=== PATIENT | male | born 1955 | race Caucasian/White ===

== ENCOUNTER → 2022-11-01 08:31 | Outpatient (BNVA) | payer SELFPAY | PROVIDERS: Visit Provider Internal Medicine | DX: Z13.89 Encounter for screening for other disorder (principal) ==

== ENCOUNTER 2022-12-17 07:12 | Outpatient (REF) | payer OTHER, SELFPAY ==
[2022-12-17 12:02] LABS: Hematocrit 43.7 % (42.0-52.0); Hemoglobin 14.2 g/dl (14.0-18.0); Mean Corpuscular HGB Conc 32.5 g/dl (31.0-36.0); Mean Corpuscular Hemoglobin 30.2 pg (27.0-33.0); Mean Platelet Volume 10.3 fL (9.4-12.4); Platelet Count 199 X10*3/uL (160-400); Red Cell Distribution Width 13.2 % (11.0-16.0); White Blood Count 3.6 X10*3/uL (4.8-10.8)
[2022-12-17 12:28] LABS: Alanine Aminotransferase 16 U/L (0-40); Albumin Level 4.2 g/dL (3.5-5.0); Alkaline Phosphatase 84 U/L (39-117); Anion Gap 15 (12-20); Aspartate Amino Transferase 24 U/L (5-37); Bilirubin Total 0.6 mg/dL (0.0-1.0); Blood Urea Nitrogen 22 mg/dL (9-16); Carbon Dioxide 26 mmol/L (22-29); Chloride 107 mmol/L (96-108); Cholesterol 192 mg/dL; Estimated Glomerular Filt Rate > 60; Glucose Fasting 79 mg/dL (60-99); HDL Cholesterol 52 mg/dL; LDL Cholesterol Calculated 125 mg/dl; Potassium 4.5 mmol/L (3.3-5.1); Sodium 143 mmol/L (135-145); Total Protein 6.3 g/dL (6.5-8.0); Triglycerides 79 mg/dL
[2022-12-21 17:37] LABS: PSA, Ultra Sensitive 0.04 ng/mL
== END 2022-12-17 07:13 | disposition home or self-care (01) ==
LOC: HO.WFDLDS 07:12
PROVIDERS: Visit Provider Nurse Practitioner Family
DX: Z00.00 Encounter for general adult medical examination without abnormal findings (principal); Z12.5 Encounter for screening for malignant neoplasm of prostate
CPT/HCPCS: 36415; 80053; 80061; 84153; 84443; 85027

== ENCOUNTER → 2023-04-10 08:24 | Outpatient (BNVA) | payer SELFPAY | PROVIDERS: PCP Nurse Practitioner Family; Visit Provider Physician Assistant | DX: Z02.79 Encounter for issue of other medical certificate (principal) ==

== ENCOUNTER 2023-07-02 09:53 | Outpatient (AMB) | payer OTHER, SELFPAY ==
[2023-07-02 10:02] VITALS: BP 118/72; PULSE 49; TEMP 36.7; O2SAT 97; BMI 21.4
--- NOTE | 2023-07-02 10:02 | MHC.PC.OV ---
Vital Signs 07/02/23 10:02 07/02/23 10:50 Height 5 ft 10 in Weight 149 lb BMI 21.4 BP 118/72 Blood Pressure Location Lt brachial Position Sitting Pulse 49 L 55 Pulse Source Pulse Oximeter Auscultation Temp 98.1 F Temp Source Oral Pulse Oximetry (%) 97 Oxygen Delivery Method Room Air Intake Visit Reasons: 4 months HTN Intake Note: Patient is here to follow up on hypertension. Allergies No Known Allergies Allergy (Verified 07/02/23 10:45) Tobacco use date assessed: 07/02/23 Fall risk assessment: No Falls in past year Last assessed Fall Risk: 07/02/23 Dental Screening Dental Screen Date: 07/02/23 Did you have a dental visit in the last 12 months?: Yes Did you have a dental problem in the last 6 months where you did not have access to dental care?: No Was dental information given to patient?: Patient has dentist HPI HPI Comments History of Present Illness Details 68-year-old male presents for hypertension follow-up He states he has been eating healthy No structured routine exercise No acute symptoms today He notes he occasionally checks his BP at home; his BP readings average in 120s/70s [facility] Medical History Rectal abscess Hypertension Surgical History H/O hernia repair Family History Father Aneurysm Social History Housing: House Patient Tobacco Use Status: Former Tobacco user Tobacco use type: Cigar Years Smoked: Pateint quit 2 weeks ago. e-Cigarette/Vaping Use: Never Used service: No Current occupational status: retired Cognitive needs: No Hearing needs: No Vision needs: No Questionnaire Thrive Questionnaire I am a: Patient What is your living situation today?: I have a steady place to live Within the past 12 months, did the food you bought not last and you didn't have the money to get more?: Never true Within the past 12 months, did you worry whether your food would run out before you got money to buy more?: Never true Do you have trouble paying for medicines?: No Do you have trouble getting transportation to medical appointments?: No Do you have trouble paying your heating and electricity bill?: No Do you have trouble taking care of your child, family member or friend?: No Do you have trouble with day-to-day activities such as bathing, preparing meals, shopping, managing finances, etc.?: No Are you currently unemployed and looking for a job?: No Are you interested in more education?: No Review of Systems Const Details: Const Denies chills, Denies fatigue, Denies fever(s), Denies headache(s) and Denies weakness ENT Denies dizziness and Denies headache(s) Card Denies chest pain, Denies lightheadedness, Denies dyspnea and Denies other (Palpitations) Resp Denies cough, Denies dyspnea, Denies wheezing and Denies other ( shortness of breath) GI Denies abdominal pain, Denies melena, Denies hematochezia, Denies change in bowel habits, Denies dyspepsia and Denies nausea Denies hematuria and Denies dysuria Musc Denies abnormal gait, Denies myalgias, Denies arthralgias, Denies numbness and Denies tingling Skin/Breast Denies rash, Denies unusual bruising and Denies wounds Neuro Denies abnormal gait, Denies dizziness, Denies headache(s), Denies memory loss, Denies numbness, Denies Sensory deficit (Neuro), Denies tingling and Denies weakness Psych Denies anxiety, Denies depression, Denies memory loss Endo Denies cold intolerance, Denies fatigue, Denies heat intolerance, Denies polydipsia and Denies polyuria Aller/Immun Denies wheezing Physical exam (Primary Care) Vital Signs: Last Vital Signs Temp 98.1 F 07/02/23 10:02 Pulse 55 07/02/23 10:50 BP 118/72 07/02/23 10:02 Pulse Ox 97 07/02/23 10:02 Oxygen Delivery Method Room Air 07/02/23 10:02 BMI result Body Mass Index 21.4 Tobacco/Smoking Status: Tobacco use Status Tobacco use date assessed 07/02/23 07/02/23 10:11 Patient Tobacco Use Status Former Tobacco user 07/02/23 10:11 Tobacco use type Cigar 07/02/23 10:11 e-Cigarette/Vaping Use Never Used 07/02/23 10:11 Const Other: General: no acute distress and well developed Nutritional Appearance: well nourished Orientation/consciousness: patient oriented x3 [facility] Head: Yes normocephalic and Yes atraumatic Eyes General: appearance normal, both eyes and all related structures Pupils: Equal, round and reactive pupils present EOM: EOMs intact bilaterally Resp Effort & Inspection: normal respiratory effort Auscultation: clear to auscultation bilaterally Cardio Rate: regular rate Rhythm: Irregular Heart sounds: S1 normal heart sound present, S2 normal heart sound present, no gallops, no murmurs and no rubs GI Palpation (GI): No Abdominal aortic bruit present, Soft to palpation, nontender, No hepatosplenomegaly present and No Rebound tenderness present Auscultation: normal bowel sounds General: Yes no CVA tenderness Back/Spine/Pelvis Back: no CVA tenderness Cervical Spine: cervical ROM normal and No Cervical spine tenderness Thoracic/Lumbar Spine: thoraco-lumbar ROM normal, No pain with thoraco-lumbar ROM, No thoracic spinal tenderness and No lumbar spinal tenderness Extrem General: Yes normal to inspection, No edema and No calf tenderness Skin General: warm and dry. Normal skin color. Normal skin turgor Lesions: no lesions Rashes: no rashes Trauma: no lacerations or abrasions Wounds: no wounds Nails: normal Neuro General: patient oriented x3, gait normal and no focal neuro deficit Cranial nerves: Yes Equal, round and reactive pupils present Cognition (Neuro): normal cognition Gait exam (Neuro): Normal gait present Sensory Exam: No Sensory deficit (Neuro) Psych Appearance: grossly normal Affect: normal affect Attitude: cooperative Thought process: Normal thought process present Assessment and Plan Assessment & Plan (1) Hypertension: Code(s): I10 - Essential (primary) hypertension Qualifiers: Hypertension type: primary hypertension Qualified Code(s): I10 - Essential (primary) hypertension Plan: His blood pressure is 118/72, within goal of less than 140/90. Heart rate is 55 Continue to monitor home blood pressure and report blood pressure readings consistently above 140/90 Low-sodium diet and routine exercise encouraged Follow-up in 5 months for hypertension and a complete physical exam. Return sooner with new or worsening symptoms Verbalized understanding and agreed with treatment plan. (2) Arrhythmia: Code(s): I49.9 - Cardiac arrhythmia, unspecified Plan: His heart rate is 55, heart rhythm is irregular. No history of chest pain or discomfort. No dizziness or lightheadedness. Patient notes that a year ago, he was informed by his former PCP that my heart skips a beat every 17 seconds. He denies history of EKG or formal diagnosis of arrhythmias or heart disease. EKG performed in office and revealed sinus bradycardia with frequent and consecutive premature ventricular complexes, nonspecific ST and T-wave abnormality. Heart rate is 59 T-wave inversion noted in leads V4, V5, and V6. Troponin ordered to rule out myocardial ischemia Echocardiogram ordered Referred to Cardiology for further workup Return with symptoms or concerns Verbalized understanding and agreed with treatment plan. (3) Abnormal EKG: Code(s): R94.31 - Abnormal electrocardiogram [ECG] [EKG] Plan: As above Orders: Orders AMB EKG-In Office Today I49.9 - Cardiac arrhythmia, unspecified CA echo transthoracic complete Today I49.9 - Cardiac arrhythmia, unspecified, R94.31 - Abnormal electrocardiogram [ECG] [EKG] Troponin-I High Sensitivity Today R94.31 - Abnormal electrocardiogram [ECG] [EKG] Referrals Cardiology Referral I49.9 - Cardiac arrhythmia, unspecified, R94.31 - Abnormal electrocardiogram [ECG] [EKG] Coding Level of Care Code Est Pt Level 4 (82546) Diagnoses Primary hypertension I10 Hypertension type: primary hypertension Arrhythmia I49.9 Abnormal EKG R94.31
[2023-07-02 10:50] VITALS: PULSE 55
== END 2023-07-02 11:18 | disposition home or self-care (01) ==
PROVIDERS: PCP Nurse Practitioner Family; Visit Provider Nurse Practitioner Family
DX: I10 Essential (primary) hypertension (principal); I49.9 Cardiac arrhythmia, unspecified; R94.31 Abnormal electrocardiogram [ECG] [EKG]
CPT/HCPCS: 99214

== ENCOUNTER 2023-07-02 11:19 | Outpatient (REF) | payer OTHER, SELFPAY ==
[2023-07-02 15:10] LABS: Troponin-I High Sensitivity 4.7 ng/L (<3.5-35.0)
== END 2023-07-02 11:20 | disposition home or self-care (01) ==
LOC: HO.WFDLDS 11:19
PROVIDERS: Visit Provider Nurse Practitioner Family
DX: R94.31 Abnormal electrocardiogram [ECG] [EKG] (principal)
CPT/HCPCS: 36415; 84484

== ENCOUNTER → 2023-07-31 12:47 | Outpatient (REF) | payer OTHER, SELFPAY ==
--- NOTE | 2023-07-31 12:52 | CA_ITS ---
Transthoracic Echocardiogram Patient (Last, First, Middle): Chong Jewell W Gender: Male Date of : 1955 Age: 68 Procedure Date: 07/31/2023 Procedure Type: Transthoracic Echocardiogram Location: OP Height: 175.26 cm Weight: 67.13 kg BSA: 1.82 m2 Heart Rate: 42 bpm BP: 130 / 80 mmHg Rn Correctional: ROSANNE Referring MD: Cecilia Mccauley CNP Symptoms: R94.31 - Abnormal electrocardiogram [ECG] [EKG] Study Quality: Adequate ECG Rhythm: Arrhythmia Conclusions: - The left ventricular systolic function is moderately decreased. The visually estimated ejection fraction is between 30-35%. - The basal inferior segment is akinetic. - There is mild to moderate mitral valve regurgitation. - There is mild dilatation of the sinuses of Valsalva measuring 4.30 cm and mild dilatation of the ascending aorta measuring 3.90 cm. Findings Left Ventricle Mildly increased left ventricular cavity size. There is mildly increased left ventricular wall thickness. The left ventricular systolic function is moderately decreased. The visually estimated ejection fraction is between 30 35%. There is moderate global hypokinesis. Evidence suggests grade I (mild) diastolic dysfunction. There is moderate septal and moderate basal asymmetric hypertrophy. Wall Motion Rest Echo Findings The basal inferior segment is akinetic. Right Ventricle Moderately increased right ventricular cavity size. Atria The left atrium is normal in size. The right atrium is mildly dilated. Aortic Valve There is a normal trileaflet aortic valve. There is mild calcification of the aortic valve. There is no aortic valve stenosis. There is no aortic valve regurgitation. Mitral Valve The mitral valve appears normal. There is mild to moderate mitral valve regurgitation. There is no mitral valve stenosis. Pulmonic Valve The pulmonic valve is likely normal. Tricuspid Valve There is trace tricuspid valve regurgitation. There is no evidence of pulmonary hypertension. Great Vessels There is mild dilatation of the sinuses of Valsalva measuring 4.30 cm and mild dilatation of the ascending aorta measuring 3.90 cm. Venous The inferior vena cava was not well visualized. Pericardium/Pleural There is no evidence of pericardial effusion. Prior Study Comparison No prior study available for comparison. Measurements 2D Linear Measurements IVSd: 1.46 0.6-0.9/0.6-1.0 cm LVIDd: 5.03 3.9-5.3/4.2-5.9 cm LVIDd Index: 2.76 2.4-3.2/2.2-3.1 cm/m2 LVIDs: 3.94 2.0-3.6 cm LVPWd: 1.24 0.7-1.1 cm LA Diam: 4.00 2.7-3.8/3.0-4.0 cm LAIDs Index: 2.20 1.5-2.3 cm/m2 LV Mass: 348.01 67-162/88-224 g LV Mass Index: 191.22 43-95/49-115 g/m2 LVOT Diam: 2.90 3.0+(-)1.3 cm 2D Systolic Function EF 4C: 37.10 >55% EF 2C: 33.90 >55% EF BiP: 37.90 >55% Mitral Valve MV Pk E: 0.54 MV PK A: 0.80 MV Decel Time: 224.00 E/A: 0.70 E'Lateral: 6.64 E'Medial: 4.13 E/E' Med: 13.20 E/E' Lat: 8.20 PHT: 65.00 MVA PHT: 3.38 Decel [place]: 2.43 MR Vol - PW Dopp: 9.32 MR VTI: 2.33 MR ERO: 4.00 MR Alias Kem: 0.39 MR RAD: 0.30 Aortic Valve AoV Pk Kem: 1.28 AoV Mn Kem: 0.95 AoV VTI: 0.31 AoV Pk Grad: 7.00 Aov Mn Grad: 4.[address] Cont.VTI: 3.53 LVOT LVOT Pk Kem: 0.72 LVOT Mn Kme: 0.52 LVOT VTI: 0.17 LVOT Pk Grad: 2.00 LVOT Mn Grad: 1.00 LVOT Diam: 2.90 LVOT Area: 6.61 Diastolic Function MV Pk E: 0.54 MV Pk A: 0.80 E/A: 0.70 E'Medial: 4.13 E/E' Med: 13.20 E' Laterial: 6.64 E/E' Lat: 8.20 Right Ventricle TAPSE (mm): 24.90 TVS' Kem: 13.40 Tricuspid Valve TR Pk Kem: 2.26 TR Pk Grad: 20.00 Great Vessels Aorta Sinus of Valsalva: 4.30 2.0-3.5 cm Ao Asc: 3.90 2.1-3.4 cm Pulmonary Valve PV Pk Kem: 0.90 Peak PV Grad: 3.00 Updated in Other Vendor System with Status of Final Christiano Crisostomo MD electronically signed on 08/02/2023 10:37:56 AM with status of Final
== END ==
LOC: HO.CARD 12:47
PROVIDERS: PCP Nurse Practitioner Family; Visit Provider Nurse Practitioner Family
DX: I49.9 Cardiac arrhythmia, unspecified (principal); R94.31 Abnormal electrocardiogram [ECG] [EKG]
CPT/HCPCS: 93306

== ENCOUNTER → 2023-07-31 12:52 | Outpatient (BNV) | payer OTHER, SELFPAY | PROVIDERS: PCP Nurse Practitioner Family; Visit Provider Internal Medicine | DX: I34.0 Nonrheumatic mitral (valve) insufficiency (principal); I35.8 Other nonrheumatic aortic valve disorders | CPT/HCPCS: 93306 ==

== ENCOUNTER 2023-10-01 13:51 | Outpatient (AMB) | payer OTHER, SELFPAY ==
--- NOTE | 2023-10-01 13:52 | A.OFFVIS_ITS ---
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 There is no history of any coronary disease, myocardial infarction or cardiomyopathy or in fact any other cardiac issues. He states that he is fairly active without any limitations. Does not get chest pains of anginal type or shortness of breath or in fact anything clearly symptomatic from cardiac. Listed to have hypertension but he is not on any medications. Otherwise, no major comorbidities. [facility] Medical History (Reviewed 07/02/23 @ 10:06 by Ayanna Chacon [facility]) Rectal abscess Hypertension Surgical History H/O hernia repair Family History Father Aneurysm Social History Housing: House Patient Tobacco Use Status: Former Tobacco user Tobacco use type: Cigar Years Smoked: Pateint quit 2 weeks ago. e-Cigarette/Vaping Use: Never Used service: No Current occupational status: retired Cognitive needs: No Hearing needs: No Vision needs: No Review of Systems Const Denies chills, Denies daytime sleepiness, Denies fatigue, Denies fever(s), Denies frequent falls, Denies night sweats, Denies snoring, Denies weakness, Denies weight gain and Denies weight loss Eyes Denies loss of vision ENT Denies dizziness and Denies hearing loss Card Denies chest pain, Denies chest pain with activity, Denies syncope, Denies rapid heart rate, Denies edema, Denies claudication, Denies leg edema, Denies lightheadedness, Denies palpitations, Denies dyspnea, Denies dyspnea on exertion and Denies orthopnea Resp Denies cough, Denies excessive phlegm production, Denies dyspnea, Denies dyspnea on exertion, Denies snoring and Denies wheezing GI Denies abdominal pain, Denies hematochezia, Denies change in bowel habits, Jose Miguel es change in stool character, Denies heartburn, Denies nausea and Denies vomiting Denies hematuria, Denies dysuria and Denies urinary frequency Musc Denies arthralgias, Denies muscle weakness, Denies numbness and Denies tingling Skin/Breast Denies nail changes and Denies rash Neuro Denies Abnormal speech present, Denies dizziness, Denies syncope, Denies frequent falls, Denies loss of vision, Denies memory loss, Denies numbness, Denies tingling and Denies weakness Psych Denies depression and Denies memory loss Endo Denies fatigue and Denies palpitations Aller/Immun Denies wheezing Physical Exam Vital Signs: Last Vital Signs Pulse 50 10/01/23 13:53 BP 142/60 H 10/01/23 13:53 BMI result Body Mass Index 23.1 Const General: comfortable and no acute distress Orientation/consciousness: patient oriented x3 HEENT Other: Unremarkable Head: Yes normal to inspection Neck Neck: Yes normal visual inspection Chest Chest palpation & inspection: normal inspection of the chest Resp Auscultation: clear to auscultation bilaterally Cardio Palpation: normal PMI Heart sounds: S1 normal heart sound present, S2 normal heart sound present, no gallops, Murmur heart sound present systolic II/ and at the apex and no rubs GI Palpation (GI): Soft to palpation Back/Spine/Pelvis Other: unremarkable Skin General skin exam: no rashes or lesions noted Neuro General: patient oriented x3 Speech: No Abnormal speech present Extrem General: Yes normal to inspection Psych Mental Status: mental status grossly normal Assessment & Plan Assessment & Plan (1) Cardiomyopathy: Code(s): I42.9 - Cardiomyopathy, unspecified (2) Abnormal EKG: Code(s): R94.31 - Abnormal electrocardiogram [ECG] [EKG] (3) PVC (premature ventricular contraction): Code(s): I49.3 - Ventricular premature depolarization Plan Recent EKG shows sinus rhythm at 59/Min; PVCs; PACs; can not exclude old inferior infarct; nonspecific T inversions in anterolateral leads. Echocardiogram with moderately decreased LVEF of 30-35%; basal inferior akinesis; [id number] mitral regurgitation and mild ascending aortic dilatation. Findings discussed with patient. Etiology for the cardiomyopathy/PVCs not clear. Unclear if he had a prior infarct or not. Patient himself does not have any cardiac history or symptoms. We will start with an exercise myocardial perfusion study as well as the Holter. January during diagnostic cardiac catheterization as well. Follow-up after testing. Coding Level of Care Code New Pt Level 4 (37223) Diagnoses Cardiomyopathy I42.9 Abnormal EKG R94.31 PVC (premature ventricular contraction) I49.3
[2023-10-01 13:53] VITALS: BP 142/60; PULSE 50; BMI 23.1
== END 2023-10-01 14:13 | disposition home or self-care (01) ==
PROVIDERS: PCP Nurse Practitioner Family; Visit Provider Internal Medicine
DX: I42.9 Cardiomyopathy, unspecified (principal); R94.31 Abnormal electrocardiogram [ECG] [EKG]; I49.3 Ventricular premature depolarization
CPT/HCPCS: 99214

== ENCOUNTER → 2023-10-01 13:51 | Outpatient (BNVA) | payer OTHER, SELFPAY | PROVIDERS: PCP Nurse Practitioner Family; Visit Provider Internal Medicine | DX: I42.9 Cardiomyopathy, unspecified (principal); I49.3 Ventricular premature depolarization; R94.31 Abnormal electrocardiogram [ECG] [EKG] | CPT/HCPCS: 99212 ==

== ENCOUNTER 2023-12-08 08:21 | Outpatient (AMB) | payer OTHER, SELFPAY ==
--- NOTE | 2023-12-04 14:38 | MHC.PC.OV ---
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 timolol maleate 0.5% 1 drp ophthalmic (eye) BID Tobacco use date assessed: 12/08/23 Fall risk assessment: No Falls in past year Last assessed Fall Risk: 12/08/23 Dental Screening Dental Screen Date: 12/08/23 Did you have a dental visit in the last 12 months?: Yes Did you have a dental problem in the last 6 months where you did not have access to dental care?: No Was dental information given to patient?: Patient has dentist HPI HPI Comments History of Present Illness Details 68 y/o male presents for a complete physical exam He has h/o HTN, dextroscoliosis, chronic low back pain, PVC, and cardiography; surgical h/o repaired detached retina OD, cataract surgery OD, and prostate cancer in 2016 with successful radiation in 2017 He is on ketorolac and timolol eyedrops He reports intermittent low back pain which has been ongoing for the past 4 years, worse with prolonged walking and certain movements; was followed by Orthopedics No acute symptoms He notes that had surgical repair of detached retina of the right eye in 08/2022. 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 His last colonoscopy was about 5 years ago at [facility]: benign polyps removed He has not been vaccinated for pneumonia, shingles, or current flu vaccines He does not recall his last eye exam He is followed by [facility] cardiology He is also followed by urology at [facility] Medical History Rectal abscess Hypertension Surgical History H/O hernia repair Family History Father Aneurysm Social History Housing: House Patient Tobacco Use Status: Former Tobacco user Tobacco use type: Cigar Years Smoked: Pateint quit 2 weeks ago. e-Cigarette/Vaping Use: Never Used service: No Current occupational status: retired Cognitive needs: No Hearing needs: No Vision needs: No Questionnaire PHQ-9 Over the last 2 weeks, how often have you been bothered by any of the following problems? 1. Little interest or pleasure in doing things: not at all 2. Feeling down, depressed, or hopeless: not at all 3. Trouble falling or staying asleep, or sleeping too much: not at all 4. Feeling tired or having little energy: not at all 5. Poor appetite or overeating: not at all 6. Feeling bad about yourself - or that you are a failure or have let yourself or your family down: not at all 7. Trouble concentrating on things, such as reading the newspaper or watching television: not at all 8. Moving or speaking so slowly that other people could have noticed. Or the opposite - being so fidgety or restless that you have been moving around a lot more than usual: not at all 9. Thoughts that you would be better off or of hurting yourself in some way: not at all Total score: 0 Depression Screening Interpretation: Negative Depression Screening Done: Yes Source: Developed by Drs. Cristino Morris, Nory Molina, Luca Wills and colleagues, with an educational regina from [employer]. Thrive Questionnaire Date Thrive assessed: 12/08/23 I am a: Patient What is your living situation today?: I have a steady place to live Within the past 12 months, did the food you bought not last and you didn't have the money to get more?: Never true Within the past 12 months, did you worry whether your food would run out before you got money to buy more?: Never true Do you have trouble paying for medicines?: No Do you have trouble getting transportation to medical appointments?: No Do you have trouble paying your heating and electricity bill?: No Do you have trouble taking care of your child, family member or friend?: No Do you have trouble with day-to-day activities such as bathing, preparing meals, shopping, managing finances, etc.?: No Are you currently unemployed and looking for a job?: No Are you interested in more education?: No Please select the resources that you would like help with: None Currently or been in a relationship where the following occur: no concerns reported THRIVE Score: 0 AUDIT C Alcohol Use Questionnaire (AUDIT-C) 1. How often do you have a drink containing alcohol?: Never 3. How often do you have six or more drinks on one occasion?: Never Total Score: 0 AMALIA-7 AMB Questionnaire AMALIA-7 Date AMALIA - 7 assessed: 12/08/23 Feeling nervous, anxious, or on edge: 0 = Not at all Not being able to stop or control worryin = Not at all Worrying too much about different things: 0 = Not at all Trouble relaxin = Not at all Being so restless that it is hard to sit still: 0 = Not at all Becoming easily annoyed or irritable: 0 = Not at all Feeling afraid as if something awful might happen: 0 = Not at all Total AMALIA-7 score (0-4 normal; 5-9 mild; 10-14 moderate; 15-21 severe): 0 Source: Developed by Drs. Cristino Morris, Nory Molina, Luca Wills and colleagues, with an educational regina from [employer]. AMALIA-7 Assessment Billing AMALIA-7 Assessment Tool: AMALIA-7 Assessment 33265 Review of Systems Const Details: Denies chills, Denies fatigue, Denies fever(s), Denies headache(s) and Denies weakness HEENT Denies change in vision, Denies dizziness, Denies headache(s), Denies hearing loss, Denies nasal congestion, Denies sinus pain, Denies sinus pressure and Denies sore throat Card Denies chest pain, Denies lightheadedness, Denies dyspnea and Denies other (palpitations) Resp Denies cough, Denies dyspnea and Denies wheezing GI Denies abdominal pain, Denies melena, Denies hematochezia, Denies change in bowel habits, Denies dyspepsia and Denies nausea Denies hematuria and Denies dysuria Musc Denies abnormal gait, Denies myalgias, Denies arthralgias, Denies numbness and Denies tingling Skin/Breast Denies rash, Denies unusual bruising and Denies wounds Neuro Denies abnormal gait, Denies dizziness, Denies headache(s), Denies memory loss, Denies numbness, Denies Sensory deficit (Neuro), Denies tingling and Denies weakness Psych Denies anxiety, Denies depression and Denies memory loss Endo Denies cold intolerance, Denies fatigue, Denies heat intolerance, Denies polydipsia and Denies polyuria Jesús/Lymph Denies easy bleeding and Denies easy bruising Aller/Immun Denies wheezing Physical exam (Primary Care) Vital Signs: Last Vital Signs Temp 97.3 F 12/08/23 08:24 Pulse 58 12/08/23 08:24 Resp 14 12/08/23 08:24 BP 130/80 12/08/23 08:53 Pulse Ox 99 12/08/23 08:24 Oxygen Delivery Method Room Air 12/08/23 08:24 BMI result Body Mass Index 23.3 Tobacco/Smoking Status: Tobacco use Status Tobacco use date assessed 12/08/23 12/08/23 08:33 Patient Tobacco Use Status Former Tobacco user 12/04/23 14:38 Tobacco use type Cigar 12/04/23 14:38 e-Cigarette/Vaping Use Never Used 12/04/23 14:38 PHQ-9: PHQ-9 Score PHQ-9: Total score 0 12/08/23 08:44 Depression Screening Interpretation: Negative Thrive Assessment: Date of Thrive Assessment Date Thrive assessed 12/08/23 12/08/23 08:33 Currently or been in a relationship where the following occur: no concerns reported Const Other: General: no acute distress, well developed, alert and awake Nutritional Appearance: well nourished Orientation/consciousness: patient oriented x3 HENMT Head: Yes normocephalic and Yes atraumatic Ears: hearing grossly normal bilaterally and TM's normal bilaterally General nose exam: Normal external nose present and Normal nares present Mouth: Normal oral and palatal mucosa present and moist mucous membranes Teeth and gingiva: dentition normal Throat: Yes oropharynx normal Eyes Pupils: Equal, round and reactive pupils present and Pupil accommodation reflex normal EOM: EOMs intact bilaterally Neck Neck: Yes normal visual inspection, Yes no lymphadenopathy and Yes trachea midline Thyroid: Thyroid normal Carotids: no bruits Lymphatic: no lymphadenopathy noted Chest Chest palpation & inspection: normal inspection of the chest Resp Effort & Inspection: normal respiratory effort Auscultation: clear to auscultation bilaterally Cardio Rate: regular rate Rhythm: regular rhythm Heart sounds: S1 normal heart sound present, S2 normal heart sound present, no gallops, no murmurs and no rubs Bruits: no abdominal aortic bruits and no carotid bruits GI Palpation (GI): No Abdominal aortic bruit present, Soft to palpation, nontender, No hepatosplenomegaly present and No Rebound tenderness present Auscultation: normal bowel sounds General: Yes no CVA tenderness Back/Spine/Pelvis Back: no CVA tenderness Cervical Spine: cervical ROM normal and No Cervical spine tenderness Thoracic/Lumbar Spine: thoraco-lumbar ROM normal, No pain with thoraco-lumbar ROM, No thoracic spinal tenderness and No lumbar spinal tenderness Skin General: warm and dry. Normal skin color. Normal skin turgor Lesions: no lesions Rashes: no rashes Trauma: no lacerations or abrasions Wounds: no wounds Nails: normal Neuro General: patient oriented x3, gait normal and CN's II-XI intact bilaterally Cranial nerves: Yes Equal, round and reactive pupils present Cognition (Neuro): normal cognition Gait exam (Neuro): Normal gait present Motor exam (neuro): 5/5 motor strength present throughout Sensory Exam: No Sensory deficit (Neuro) Deep tendon reflexes (DTR's): Right patellar reflex intensity grade: 2+ and Left patellar reflex intensity grade: 2+ Extrem General: Yes normal to inspection, No edema and No calf tenderness Psych Appearance: grossly normal Affect: normal affect Attitude: cooperative Thought process: Normal thought process present Assessment and Plan Assessment & Plan (1) Physical exam, annual: Code(s): Z00.00 - Encounter for general adult medical examination without abnormal findings Plan: Normal physical exam of a 68-year-old male, no significant physical restrictions or limitations noted Continue current treatment regimen Healthy diet and routine exercise encouraged Follow-up in 2 months for hypertension and labs review Return sooner with symptoms or concerns Verbalized understanding and agreed with the treatment plan (2) Hypertension: Code(s): I10 - Essential (primary) hypertension Qualifiers: Hypertension type: primary hypertension Qualified Code(s): I10 - Essential (primary) hypertension Plan: Resting blood pressure is 130/80, controlled No currently on antihypertensive Low-sodium diet encouraged Follow-up in 2 months or return sooner with symptoms or concerns Verbalized understanding and agreed with treatment plan (3) Chronic low back pain: Code(s): M54.50 - Low back pain, unspecified; G89.29 - Other chronic pain Plan: Intermittent chronic low back pain, worse with prolonged ambulation and certain movements No acute symptoms at this time Likely arthritis Will start Naproxen 500 mg twice daily as needed. Take as prescribed Warm/cold compresses encouraged Follow-up with worsening or new symptoms Verbalized understanding and agreed with treatment plan (4) Cardiomyopathy: Code(s): I42.9 - Cardiomyopathy, unspecified Plan: Followed by [facility] cardiology (5) Colon cancer screening: Code(s): Z12.11 - Encounter for screening for malignant neoplasm of colon Plan: Last colonoscopy was about 5 years ago at [facility]: benign polyps removed Referred to [facility] gastroenterology for a colonoscopy (6) Vaccine counseling: Code(s): Z71.85 - Encounter for immunization safety counseling Plan: He has not been vaccinated for pneumonia, shingles, or current flu vaccines Instructed on the importance of vaccination encouraged to request the vaccinations from the local pharmacy Verbalized understanding and agreed with the plan (7) Eye exam, routine: Code(s): Z01.00 - Encounter for examination of eyes and vision without abnormal findings Plan: He does not recall his last eye exam Referred to [facility] Ophthalmology (8) Laboratory tests ordered as part of a complete physical exam (CPE): Code(s): Z00.00 - Encounter for general adult medical examination without abnormal findings Plan: Fasting labs ordered as part of a complete physical exam. Advised to fast for at least 10 hours before getting labs drawn. May drink water Verbalized understanding and agreed with treatment plan. Orders: Orders Complete Blood Count Auto Diff Today Z00.00 - Encounter for general adult medical examination without abnormal findings Lipid Panel Today Z00.00 - Encounter for general adult medical examination without abnormal findings PSA, Ultra Sensitive Today Z00.00 - Encounter for general adult medical examination without abnormal findings Comprehensive [place]. Panel Fast Today Z00.00 - Encounter for general adult medical examination without abnormal findings TSH reflex Free T4 Today Z00.00 - Encounter for general adult medical examination without abnormal findings UA CC w/rflx Micro + Cult Today Z00.00 - Encounter for general adult medical examination without abnormal findings Referrals Ophthalmology Referral Z01.00 - Encounter for examination of eyes and vision without abnormal findings Medications: New naproxen 500 mg PO BID PRN 60 tabs 1RF pain Coding Level of Care Code Est Pt Prev Care >65y(32075) Diagnoses Physical exam, annual Z00.00 Primary hypertension I10 Hypertension type: primary hypertension Chronic low back pain M54.50; G89.29 Cardiomyopathy I42.9 Colon cancer screening Z12.11 Vaccine counseling Z71.85 Eye exam, routine Z01.00 Laboratory tests ordered as part of a complete physical exam (CPE) Z00.00 Additional Codes AMALIA-7 Assessment Billing - AMALIA-7 Assessment Tool: AMALIA-7 Assessment 24514 ([id number])
[2023-12-08 08:24] VITALS: BP 148/76; PULSE 58; RESP 14; TEMP 36.3; O2SAT 99; BMI 23.3
[2023-12-08 08:53] VITALS: BP 130/80
== END 2023-12-08 09:11 | disposition home or self-care (01) ==
PROVIDERS: PCP Nurse Practitioner Family; Visit Provider Nurse Practitioner Family
DX: Z00.00 Encounter for general adult medical examination without abnormal findings (principal); I10 Essential (primary) hypertension; M54.50 Low back pain, unspecified; G89.29 Other chronic pain; I42.9 Cardiomyopathy, unspecified; Z12.11 Encounter for screening for malignant neoplasm of colon; Z71.85 Encounter for immunization safety counseling; Z01.00 Encounter for examination of eyes and vision without abnormal findings
CPT/HCPCS: 99397

== ENCOUNTER → 2023-12-17 08:14 | Outpatient (REF) | payer OTHER, SELFPAY ==
--- NOTE | ~2023-12-17 | NM_ITS ---
EXERCISE MYOCARDIAL PERFUSION STUDY INDICATION: PVC, cardiomyopathy TECHNIQUE: The patient was brought in for an exercise perfusion study on 12/17/2023. Patient performed exercise as per Agustin protocol and was injected 25 mCi of sestamibi once target heart rate was achieved. Images were obtained using the SPECT gamma camera interlaced with the gating device. Images were obtained in supine position. Resting perfusion study was performed on 12/18/2023. Patient was administered 25 mCi of sestamibi intravenously at rest. Images were then obtained in supine position. Images were processed with the software and compared side to side in short axis, horizontal long axis and vertical long axis views. Total DLP 80mGy-cm. FINDINGS: Raw images were reviewed. The stress perfusion study showed tracer uptake in the basal part of lateral wall. Possibly some improvement with CT attenuation correction. The gated study shows mildly diminished LV systolic function with calculated LVEF of 49%. LV cavity is normal in size. The gated study shows normal wall thickening and contraction of segments. Resting study shows diminished tracer uptake along the basal part of lateral wall. No major change with CT attenuation correction. Gating at rest reveals normal wall motion with ejection fraction at 47%. The findings are consistent with basal lateral defect. No clear reversible defects NM/NM cardiolite stress test IMPRESSION: 1. Myocardial perfusion imaging study shows possible infarct in the basal inferolateral wall. No clear ischemia. 2. Gated LVEF is 49% during stress and 47% during rest.. 3. Transient ischemic dilatation not present. EKG component of the test reported separately.
--- NOTE | 2023-12-17 08:18 | CA_ITS ---
Acquisition Time: 2023-12-17 08:29:58 Total Exercise Time: 00:06:07 Test Indications: ABN EKG, ABN ECHO Medications: SEE H Protocol: NAYELI Max HR: 148 BPM 96% of Pred: 153 BPM Max BP: 170/078 mmHG Max Work Load: 7.1 METS Exercise stress test exercise 6 min 76 sec of Nayeli protocol achieving 94% MPHR, without anginal symptoms, with isolated PVCs during exercise and isolated PVCsventicular cupets at rest, with normotensive response to exercise, without EKG changes. Nuclear images pending. Test reviewed with Dr. Rankin Referred By: Christiano Crisostomo Overread By: Nena Prescott
--- NOTE | 2023-12-17 08:18 | HM_ITS ---
Conclusion: 1. Patient was monitored for total period of 2 days 2. Baseline was normal sinus rhythm with average heart of 67 beats per minute 3. Frequent sinus bradycardia noted with 40% of the time heart rate below 60 beats per minute with no significant pauses 4. Occasional PACs noted with no significant SVT runs 5. Frequent PVCs noted with total burden of 10.4% with frequent nonsustained VT noted with longest episode of 5 beats at 170 beats per minute 6. No patient reported events MTDD
== END ==
LOC: HO.CARD 08:14
PROVIDERS: PCP Nurse Practitioner Family; Visit Provider Internal Medicine
DX: R00.2 Palpitations (principal); I49.3 Ventricular premature depolarization; I42.9 Cardiomyopathy, unspecified
CPT/HCPCS: 78452; 93017; 93242; A9500

== ENCOUNTER → 2023-12-17 08:18 | Outpatient (BNV) | payer OTHER, SELFPAY | PROVIDERS: PCP Nurse Practitioner Family; Visit Provider Nurse Practitioner | DX: R00.1 Bradycardia, unspecified (principal) | CPT/HCPCS: 78452; 93016; 93018; 93244 ==

== ENCOUNTER 2023-12-25 08:33 | Outpatient (AMB) | payer OTHER, SELFPAY ==
[2023-12-25 08:40] VITALS: BP 122/70; PULSE 52; BMI 23.1
--- NOTE | 2023-12-25 08:40 | A.OFFVIS_ITS ---
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 naproxen 500 mg PO BID PRN timolol maleate 0.5% 1 drp ophthalmic (eye) BID HPI r/s followup after mibi HPI Details Chong is a 68-year-old male with past medical history of hypertension, newer finding of cardiomyopathy, PVCs who recently underwent a nuclear stress test and Holter monitor and now presents for follow-up. Today he states that he feels well overall with no concerning symptoms. He denies having heart palpitations, chest discomfort at rest or with activity, no shortness of breath, presyncope, syncope, falls. No PND, orthopnea or edema. He does only light physical activities. Takes meds as directed. [facility] Medical History Prostate cancer Rectal abscess Hypertension Surgical History Hx of cataract surgery H/O hernia repair Family History Father Aneurysm Social History Housing: House Patient Tobacco Use Status: Former Tobacco user Tobacco use type: Cigar Years Smoked: Pateint quit 2 weeks ago. e-Cigarette/Vaping Use: Never Used service: No Current occupational status: retired Cognitive needs: No Hearing needs: No Vision needs: No Review of Systems Const All systems reviewed & are unremarkable except as noted in HPI and below ENT Denies dizziness Card Denies chest pain, Denies chest pain at rest, Denies chest pain with activity, Denies rapid heart rate, Denies pedal edema, Denies edema, Denies leg edema, Denies lightheadedness, Denies palpitations, Denies dyspnea, Denies dyspnea on exertion and Denies orthopnea Resp Denies cough, Denies dyspnea and Denies dyspnea on exertion GI Denies hematochezia and Denies change in stool character Musc Denies abnormal gait, Denies limited range of motion, Denies muscle cramps, Denies muscle weakness, Denies numbness, Denies radiating pain into limb, Denies stiffness and Denies tingling Neuro Denies abnormal gait, Denies dizziness, Denies numbness and Denies tingling Endo Denies palpitations Physical Exam Vital Signs: Last Vital Signs Pulse 52 12/25/23 08:40 BP 122/70 12/25/23 08:40 BMI result Body Mass Index 23.1 Const General: cooperative, healthy appearing, comfortable and no acute distress Orientation/consciousness: patient oriented x3 Neck Neck: Yes normal visual inspection and Yes no JVD Resp Effort & Inspection: normal respiratory effort Auscultation: clear to auscultation bilaterally, no crackles, no rales, no rhonchi and no wheezes Cardio Jugular venous distension: no JVD Rate: regular rate Rhythm: regular rhythm Heart sounds: S1 normal heart sound present, S2 normal heart sound present, no murmurs and no rubs Neuro General: patient oriented x3 Extrem General: Yes normal to inspection, No no pedal edema and No calf tenderness Psych Appearance: grossly normal Mental Status: mental status grossly normal Speech and movement: Normal speech and movement present Assessment & Plan Assessment & Plan (1) Cardiomyopathy: Code(s): I42.9 - Cardiomyopathy, unspecified Plan: An EKG was done 07/04/2023 showing sinus bradycardia with frequent PVCs. This led to echocardiogram done on 07/31/2023 showing EF 30-35%, basal inferior akinetic, [id number] MR, ascending aorta 3.9, sinus of Valsalva 4.3. He was seen in Cardiology consultation and a nuclear stress test was ordered and done on 12/17/2023 with exercise 6 minutes achieving 94% MPHR, no anginal symptoms, PVCs and couplets, no EKG changes of ischemia and nuclear scan showing possible infarct of the basal inferior lateral wall. A Holter monitor was done on 12/16 for 2 days showing sinus rhythm with average heart rate 67, sinus bradycardia 40% of the time with heart rate less than 60, PVCs 10.4% of time with frequent NSVT, longest 5 beats. He has not on any cardiac medications at this time. He did have good chronotropic competence at his stress test. Pulse rate today in the 50s. Reviewed with . Will start on low-dose metoprolol XL. Recommended he stopped timolol eyedrops. He tells me he has an appointment with his eye doctor next week and they may be discontinued any ways. Will order a cardiac catheterization for evaluation of his coronary arteries, question PCI if warranted. Preprocedure labs ordered. Procedure risks including bleeding, infection, JACQUELIN, [place], stroke reviewed with him and he is agreeable to proceed. Will have him back here in 1 week for vital sign check. May increase metoprolol dose and or add Jeramie/Arb at that time. He has no signs of fluid overload on exam. No need for diuretic at this time. His cardiomyopathy could be ischemic also may be related to frequent PVCs. Avoidance of stimulants reviewed, he can continue activity as tolerated. Cardiology follow-up 2 weeks post cath. (2) Abnormal nuclear stress test: Code(s): R94.39 - Abnormal result of other cardiovascular function study Plan: As above (3) Hypertension: Code(s): I10 - Essential (primary) hypertension Qualifiers: Hypertension type: primary hypertension Qualified Code(s): I10 - Essential (primary) hypertension Plan: Well controlled at this time. Adding low-dose metoprolol. Recheck in the office in 1 week. (4) PVC (premature ventricular contraction): Code(s): I49.3 - Ventricular premature depolarization Plan: Frequent PVCs as above. Plan Time spent on chart review, documentation, interview and assessment Orders: Orders Basic Metabolic Panel Today I42.9 - Cardiomyopathy, unspecified, I49.3 - Ventricular premature depolarization, R94.39 - Abnormal result of other cardiovascular function study Cardiac Cath LT w PCI Today I42.9 - Cardiomyopathy, unspecified, I49.3 - Ventricular premature depolarization, R94.39 - Abnormal result of other cardiovascular function study Complete Blood Count Auto Diff Today I42.9 - Cardiomyopathy, unspecified, R94.39 - Abnormal result of other cardiovascular function study Prothrombin Time INR Today I42.9 - Cardiomyopathy, unspecified, R94.39 - Abnormal result of other cardiovascular function study Medications: New metoprolol succinate ER 12.5 mg (09/16 x 25 mg) PO DAILY 15 tabs 3RF 30 days Coding Level of Care Code Est Pt Level 4 (63553) Diagnoses Cardiomyopathy I42.9 Abnormal nuclear stress test R94.39 Primary hypertension I10 Hypertension type: primary hypertension PVC (premature ventricular contraction) I49.3 Time Spent (min) 30
== END 2023-12-25 09:17 | disposition home or self-care (01) ==
PROVIDERS: PCP Nurse Practitioner Family; Visit Provider Nurse Practitioner Family
DX: I42.9 Cardiomyopathy, unspecified (principal); R94.39 Abnormal result of other cardiovascular function study; I10 Essential (primary) hypertension; I49.3 Ventricular premature depolarization
CPT/HCPCS: 99214

== ENCOUNTER → 2023-12-25 08:33 | Outpatient (BNVA) | payer OTHER, SELFPAY | PROVIDERS: PCP Nurse Practitioner Family; Visit Provider Nurse Practitioner Family | DX: I42.9 Cardiomyopathy, unspecified (principal); I10 Essential (primary) hypertension; R94.39 Abnormal result of other cardiovascular function study; I49.3 Ventricular premature depolarization | CPT/HCPCS: 99212 ==

== ENCOUNTER → 2024-01-01 09:19 | Outpatient (BNVA) | payer OTHER, SELFPAY | PROVIDERS: PCP Nurse Practitioner Family; Visit Provider Nurse Practitioner Family ==

== ENCOUNTER 2024-01-19 07:02 | Outpatient (REF) | payer OTHER, SELFPAY ==
[2024-01-19 11:21] LABS: MANUAL DIFF FLAG NO
[2024-01-19 11:27] LABS: Appearance Urine Turbid; Color Urine Yellow; Glucose Urine UA Negative (Negative); Leukocyte Esterase Urine Negative (Negative); Nitrite Urine Negative (Negative); Specific Gravity - Urine 1.025 (1.005-1.025); Urine Blood Negative (Negative); Urine Ketones Negative (Negative); Urine Protein Negative (Neg-Trace)
[2024-01-19 11:33] LABS: Basophils Percent Auto 0.3 % (0-2); Eosinophils Absolute Auto 0.2 X10*3/uL (0.0-0.4); Eosinophils Percent Auto 6.7 % (0-4); Hemoglobin 14.1 g/dl (14.0-18.0); Lymphocytes Percent Auto 30.4 % (20-40); Mean Corpuscular HGB Conc 32.8 g/dl (31.0-36.0); Mean Corpuscular Hemoglobin 29.9 pg (27.0-33.0); Mean Corpuscular Volume 91.1 fL (80.0-98.0); Mean Platelet Volume 10.2 fL (9.4-12.4); Monocytes Absolute Auto 0.5 X10*3/uL (0.1-1.2); Neutrophils Absolute Auto 1.7 x10*3/uL (2.0-8.3); Neutrophils Percent Auto 48.6 % (45-73); Platelet Count 193 X10*3/uL (160-400); Red Blood Count 4.72 X10*6/uL (4.60-5.80); Red Cell Distribution Width 14.2 % (11.0-16.0); White Blood Count 3.4 X10*3/uL (4.8-10.8)
[2024-01-19 11:42] LABS: INTERNATIONAL NORM RATIO 0.9 (0.9-1.1); Prothrombin Time 11.2 SEC (11.1-13.3)
[2024-01-19 11:50] LABS: Alanine Aminotransferase 17 U/L (0-40); Albumin Level 4.2 g/dL (3.5-5.0); Alkaline Phosphatase 74 U/L (39-117); Anion Gap 13 (12-20); Aspartate Amino Transferase 24 U/L (5-37); Bilirubin Total 0.4 mg/dL (0.0-1.0); Blood Urea Nitrogen 24 mg/dL (9-16); Calcium 9.6 mg/dL (8.4-10.2); Carbon Dioxide 25 mmol/L (22-29); Chloride 110 mmol/L (96-108); Cholesterol 200 mg/dL (<200); Estimated Glomerular Filt Rate > 60; Glucose Fasting 78 mg/dL (60-99); Glucose Random 78 mg/dL (60-115); HDL Cholesterol 54 mg/dL (>40); LDL Cholesterol Calculated 132 mg/dL (<100); Potassium 4.5 mmol/L (3.3-5.1); Sodium 143 mmol/L (135-145); Triglycerides 70 mg/dL (<150)
[2024-01-19 12:10] LABS: TSH reflex Free T4 0.88 uIU/mL (0.32-4.0)
[2024-01-22 20:09] LABS: PSA, Ultra Sensitive 0.02 ng/mL
== END 2024-01-19 07:03 | disposition home or self-care (01) ==
LOC: HO.WFDLDS 07:02
PROVIDERS: Referring Provider Nurse Practitioner Family; Visit Provider Nurse Practitioner Family
DX: Z00.00 Encounter for general adult medical examination without abnormal findings (principal); Z12.5 Encounter for screening for malignant neoplasm of prostate; Z13.6 Encounter for screening for cardiovascular disorders; I42.9 Cardiomyopathy, unspecified; R94.39 Abnormal result of other cardiovascular function study; I49.3 Ventricular premature depolarization
CPT/HCPCS: 36415; 80048; 80053; 80061; 81003; 84153; 84443; 85025; 85610

== ENCOUNTER → 2024-01-27 23:59 | Outpatient (BNV) | payer OTHER, SELFPAY | PROVIDERS: PCP Nurse Practitioner Family; Visit Provider Internal Medicine Cardiovascular Disease | DX: I42.9 Cardiomyopathy, unspecified (principal); I50.20 Unspecified systolic (congestive) heart failure; R93.1 Abnormal findings on diagnostic imaging of heart and coronary circulation | CPT/HCPCS: 93456; 99152 ==

== ENCOUNTER 2024-01-30 07:52 | Outpatient (AMB) | payer OTHER, SELFPAY ==
--- NOTE | 2024-01-30 07:54 | A.OFFPC_ITS ---
Vital Signs 01/30/24 07:55 Height 5 ft 9 in Weight 156 lb 2 oz BMI 23.1 BP 124/68 Blood Pressure Location Rt brachial Position Sitting Respiration 14 Pulse 69 Pulse Source Pulse Oximeter Temp 97 F Temp Source Temporal Artery Scan Pulse Oximetry (%) 99 Oxygen Delivery Method Room Air Intake Visit Reasons: Hypertension,lab review Vc++ Developer Required: No Accompanied by: Self / Same As Patient Allergies No Known Allergies Allergy (Verified 01/30/24 07:59) Tobacco use date assessed: 12/08/23 Fall risk assessment: No Falls in past year Last assessed Fall Risk: 01/30/24 Dental Screening Dental Screen Date: 12/08/23 HPI HPI Comments History of Present Illness Details 68-year-old male presents for hypertensi on and review of recent lab work follow-up. He had cardiac catheterization procedure at [facility] on 01/26/2023. Coronary anatomy: Right dominant circulation. Mid RCA has 40% stenosis. No significant disease in LAD or circumflex artery. He was prescribed metoprolol 12.5 mg daily, which he admits to taking as prescribed without adverse reactions. He admits to eating healthy and avoiding salt. He sleeps well. He offers no complaints and denies acute symptoms at this time. [facility] Medical History Prostate cancer Rectal abscess Hypertension Surgical History Hx of cataract surgery H/O hernia repair Family History Father Aneurysm Social History Household Members: Spouse Both parents involved: No Caregiver staying overnight: No Housing: House Are you a primary managed care manager to a significant other at home: No Do you presently have visiting nurse or other home services: No 75 years or older and lives alone: No Alcohol intake: never Patient Tobacco Use Status: Former Tobacco user Tobacco use type: Cigar Years Smoked: Pateint quit 2 weeks ago. e-Cigarette/Vaping Use: Never Used service: No Current occupational status: retired Cognitive needs: No Hearing needs: No Vision needs: No Questionnaire Thrive Questionnaire Date Thrive assessed: 12/08/23 AMALIA-7 AMB Questionnaire AMALIA-7 Date AMALIA - 7 assessed: 12/08/23 Source: Developed by Drs. Cristino Morris, Nory Molina, Luca Wills and colleagues, with an educational regina from [employer]. Review of Systems Const Details: Const Denies chills, Denies fatigue, Denies fever(s), Denies headache(s) and Denies weakness ENT Denies dizziness and Denies headache(s) Card Denies chest pain, Denies lightheadedness, Denies dyspnea and Denies other (Palpitations) Resp Denies cough, Denies dyspnea, Denies wheezing and Denies other ( shortness of breath) GI Denies abdominal pain, Denies melena, Denies hematochezia, Denies change in bowel habits, Denies dyspepsia and Denies nausea Denies hematuria and Denies dysuria Musc Denies abnormal gait, Denies myalgias, Denies arthralgias, Denies numbness and Denies tingling Skin/Breast Denies rash, Denies unusual bruising and Denies wounds Neuro Denies abnormal gait, Denies dizziness, Denies headache(s), Denies memory loss, Denies numbness, Denies Sensory deficit (Neuro), Denies tingling and Denies weakness Psych Denies anxiety, Denies depression, Denies memory loss Endo Denies cold intolerance, Denies fatigue, Denies heat intolerance, Denies polydipsia and Denies polyuria Aller/Immun Denies wheezing Physical exam (Primary Care) Vital Signs: Last Vital Signs Temp 97 F 01/30/24 07:55 Pulse 69 01/30/24 07:55 Resp 14 01/30/24 07:55 BP 124/68 01/30/24 07:55 Pulse Ox 99 01/30/24 07:55 Oxygen Delivery Method Room Air 01/30/24 07:55 BMI result Body Mass Index 23.1 Tobacco/Smoking Status: Tobacco use Status Tobacco use date assessed 12/08/23 01/30/24 08:03 Patient Tobacco Use Status Former Tobacco user 01/30/24 08:03 Tobacco use type Cigar 01/30/24 08:03 e-Cigarette/Vaping Use Never Used 01/30/24 08:03 Thrive Assessment: Date of Thrive Assessment Date Thrive assessed 12/08/23 01/30/24 08:03 Const Other: General: no acute distress and well developed Nutritional Appearance: well nourished Orientation/consciousness: patient oriented x3 [facility] Head: Yes normocephalic and Yes atraumatic Eyes General: appearance normal, both eyes and all related structures Pupils: Equal, round and reactive pupils present EOM: EOMs intact bilaterally Resp Effort & Inspection: normal respiratory effort Auscultation: clear to auscultation bilaterally Cardio Rate: regular rate Rhythm: regular rhythm Heart sounds: S1 normal heart sound present, S2 normal heart sound present, no gallops, no murmurs and no rubs GI Palpation (GI): No Abdominal aortic bruit present, Soft to palpation, nontender, No hepatosplenomegaly present and No Rebound tenderness present Auscultation: normal bowel sounds General: Yes no CVA tenderness Back/Spine/Pelvis Back: no CVA tenderness Cervical Spine: cervical ROM normal and No Cervical spine tenderness Thoracic/Lumbar Spine: thoraco-lumbar ROM normal, No pain with thoraco-lumbar ROM, No thoracic spinal tenderness and No lumbar spinal tenderness Extrem General: Yes normal to inspection, No edema and No calf tenderness Skin General: warm and dry. Normal skin color. Normal skin turgor Neuro General: patient oriented x3, gait normal and no focal neuro deficit Cranial nerves: Yes Equal, round and reactive pupils present Cognition (Neuro): normal cognition Gait exam (Neuro): Normal gait present Sensory Exam: No Sensory deficit (Neuro) Psych Appearance: grossly normal Affect: normal affect Attitude: cooperative Thought process: Normal thought process present Assessment and Plan Assessment & Plan (1) Hypertension: Code(s): I10 - Essential (primary) hypertension Qualifiers: Hypertension type: primary hypertension Qualified Code(s): I10 - Essential (primary) hypertension Plan: Blood pressure is 124/68, within goal of less than 130/80. Heart rate is 69 Continue current treatment regimen Low-sodium diet and routine exercise encouraged (2) Hypercholesterolemia: Code(s): E78.00 - Pure hypercholesterolemia, unspecified Plan: Recent labs results reviewed with the patient. Unremarkable findings except for slightly elevated total cholesterol and LDL, 200 and 132 respectively; LDL goal is less than 100 Advised to limit foods high in saturated fat and avoid foods high in trans fat Routine exercise encouraged Will recheck lipid panel in 3 months. Advised to fast for 10-12 hours, may drink water only and get blood work done before his next visit Follow-up in 3 months Verbalized understanding and agreed with treatment plan (3) Cardiomyopathy: Code(s): I42.9 - Cardiomyopathy, unspecified Plan: Encouraged to continue follow-up with cardiology as planned Orders: Orders Lipid Panel 3 Months E78.00 - Pure hypercholesterolemia, unspecified Referrals Gastroenterology Referral Z12.11 - Encounter for screening for malignant neoplasm of colon Coding Level of Care Code Est Pt Level 4 (64578) Complex EM visit Add On G2211 Diagnoses Primary hypertension I10 Hypertension type: primary hypertension Hypercholesterolemia E78.00 Cardiomyopathy I42.9
[2024-01-30 07:55] VITALS: BP 124/68; PULSE 69; RESP 14; TEMP 36.1; O2SAT 99; BMI 23.1
== END 2024-01-30 08:28 | disposition home or self-care (01) ==
PROVIDERS: PCP Nurse Practitioner Family; Visit Provider Nurse Practitioner Family
DX: I10 Essential (primary) hypertension (principal); E78.00 Pure hypercholesterolemia, unspecified; I42.9 Cardiomyopathy, unspecified
CPT/HCPCS: 99214; G2211

== ENCOUNTER 2024-02-10 08:51 | Outpatient (AMB) | payer OTHER, SELFPAY ==
[2024-02-10 09:00] VITALS: BP 114/72; PULSE 50; BMI 22.9
--- NOTE | 2024-02-10 09:00 | A.OFFVIS_ITS ---
Vital Signs 02/10/24 09:00 Height 5 ft 9 in Weight 155 lb 3.287 oz BMI 22.9 BP 114/72 Blood Pressure Location Lt brachial Position Sitting Pulse 50 Pulse Source Pulse Oximeter Intake Visit Reasons: Follow up post cardiac cath Topstitcher Zigzag Required: No Allergies No Known Allergies Allergy (Verified 02/10/24 09:01) Medication List - Last Reconciled 02/10/24 by Hodan Victoria, TIMBER CRUISER-C brimonidine 0.1% 1 drp ophthalmic (eye) BID metoprolol succinate ER 12.5 mg (1/2 x 25 mg) PO DAILY 30 days HPI HPI Follow up post cardiac cath: Details: Chong is a 68-year-old male with past medical history of hypertension, newer finding of cardiomyopathy, PVCs who had abnormal nuclear stress test and then underwent a cardiac catheterization and now presents for follow-up. Today he states that he feels well overall with no concerning symptoms. His right radial catheterization site is feeling well. He denies having heart palpitations, chest discomfort at rest or with activity, no shortness of breath, presyncope, syncope, falls. No PND, orthopnea or edema. He does only light physical activities. Takes meds as direct [facility] Medical History Prostate cancer Rectal abscess Hypertension Surgical History History of cardiac cath Hx of cataract surgery H/O hernia repair Family History Father Aneurysm Social History Household Members: Spouse Both parents involved: No Caregiver staying overnight: No Housing: House Are you a primary small animal caretaker to a significant other at home: No Do you presently have visiting nurse or other home services: No 75 years or older and lives alone: No Alcohol intake: never Patient Tobacco Use Status: Former Tobacco user Tobacco use type: Cigar Years Smoked: Pateint quit 2 weeks ago. e-Cigarette/Vaping Use: Never Used service: No Current occupational status: retired Cognitive needs: No Hearing needs: No Vision needs: No Review of Systems Const All systems reviewed & are unremarkable except as noted in HPI and below ENT Denies dizziness Card Denies chest pain, Denies chest pain at rest, Denies chest pain with activity, Denies rapid heart rate, Denies pedal edema, Denies edema, Denies leg edema, Denies lightheadedness, Denies palpitations, Denies dyspnea, Denies dyspnea on exertion and Denies orthopnea Resp Denies cough, Denies dyspnea and Denies dyspnea on exertion GI Denies hematochezia and Denies change in stool character Musc Denies abnormal gait, Denies limited range of motion, Denies muscle cramps, Denies muscle weakness, Denies numbness, Denies radiating pain into limb, Denies stiffness and Denies tingling Neuro Denies abnormal gait, Denies dizziness, Denies numbness and Denies tingling Endo Denies palpitations Physical Exam Vital Signs: Last Vital Signs Pulse 50 02/10/24 09:00 BP 114/72 02/10/24 09:00 BMI result Body Mass Index 22.9 Const General: cooperative, healthy appearing, comfortable and no acute distress Orientation/consciousness: patient oriented x3 Resp Effort & Inspection: normal respiratory effort Auscultation: clear to auscultation bilaterally, no rales and no rhonchi Cardio Jugular venous distension: no JVD Rate: regular rate Rhythm: regular rhythm Heart sounds: S1 normal heart sound present, S2 normal heart sound present and no murmurs Neuro General: patient oriented x3 Extrem General: Yes normal to inspection, No no pedal edema and No calf tenderness Psych Appearance: grossly normal Mental Status: mental status grossly normal Speech and movement: Normal speech and movement present Assessment & Plan Assessment & Plan (1) Cardiomyopathy: Code(s): I42.9 - Cardiomyopathy, unspecified Category: Medical Plan: An EKG was done 07/04/2023 showing sinus bradycardia with frequent PVCs. This led to echocardiogram done on 07/31/2023 showing EF 30-35%, basal inferior akinetic, [id number] MR, ascending aorta 3.9, sinus of Valsalva 4.3. He was seen in Cardiology consultation and a nuclear stress test was done on 12/17/2023 with exercise 6 minutes achieving 94% MPHR, no anginal symptoms, PVCs and couplets, no EKG changes of ischemia and nuclear scan showing possible infarct of the basal inferior lateral wall. A Holter monitor was done on 12/16 for 2 days showing sinus rhythm with average heart rate 67, sinus bradycardia 40% of the time with heart rate less than 60, PVCs 10.4% of time with frequent NSVT, longest 5 beats. On last visit low-dose metoprolol 12.5 mg daily was added. He had been on timolol eyedrops which were stopped since last visit. Cardiac catheterization was done on 01/27/2024 showing mid RCA 40% stenosis. This does not account for his cardiomyopathy, abnormal stress test or frequent PVCs. Catheterization report has recommendation for cardiac MRI. Ordered cardiac MRI to assess for abnormal cardiac muscle tissue versus scar. His cardiomyopathy may be related to the frequent PVCs. Will check with his primary media relations intern regarding possible antiarrhythmic for his frequent PVCs. At this time will continue on current metoprolol. Blood pressure is on the low side at 114/72. Will hold off on addition of Jeramie or Arb at this time. Reviewed all the above with him and he states understanding. Signs and symptoms of heart failure reviewed. need for diuretic at this time. Avoidance of stimulants reviewed, he can continue activity as tolerated. Cardiology follow-up 3 mo. ( [facility] cardiac MRIs scheduling approximately 2 months from now) (2) Abnormal nuclear stress test: Code(s): R94.39 - Abnormal result of other cardiovascular function study Category: Medical Plan: As above (3) Hypertension: Code(s): I10 - Essential (primary) hypertension Category: Medical Qualifiers: Hypertension type: primary hypertension Qualified Code(s): I10 - Essential (primary) hypertension Plan: Well controlled at this time. No med change (4) PVC (premature ventricular contraction): Code(s): I49.3 - Ventricular premature depolarization Category: Medical Plan: Frequent PVCs as above. (5) CAD (coronary artery disease): Comment: Cardiac catheterization 01/27/2024 shows lad minimal irregularities, left circumflex normal, RCA mid 40% stenosis. Code(s): I25.10 - Atherosclerotic heart disease of [place] coronary artery without angina pectoris Category: Medical Plan: Nonobstructive coronary artery disease, new finding on cardiac catheterization. No anginal sounding symptoms. Will have him start on aspirin 81 mg daily. He has taken atorvastatin in the past and reports muscle cramps. Will have him start on low dose rosuvastatin 10 mg daily. Labs done on 01/19/2024 had shown LDL 132. He will need a repeat fasting lipids in about 6-8 weeks. Continue low- dose metoprolol. Plan Time spent on chart review, documentation, interview and assessment Orders: Orders Basic Metabolic Panel Today I49.3 - Ventricular premature depolarization Lipid Panel Today I25.10 - Atherosclerotic heart disease of [place] coronary artery without angina pectoris Liver Panel Today E78.00 - Pure hypercholesterolemia, unspecified, I25.10 - Atherosclerotic heart disease of [place] coronary artery without angina pectoris MR cardiac morph fnct w con Today I42.9 - Cardiomyopathy, unspecified, I49.3 - Ventricular premature depolarization, R94.39 - Abnormal result of other cardiovascular function study Medications: New rosuvastatin 10 mg PO DAILY 30 tabs 3RF aspirin 81 mg PO DAILY Coding Level of Care Code Est Pt Level 4 (03896) Diagnoses Cardiomyopathy I42.9 Abnormal nuclear stress test R94.39 Primary hypertension I10 Hypertension type: primary hypertension PVC (premature ventricular contraction) I49.3 CAD (coronary artery disease) I25.10 Time Spent (min) 28
== END 2024-02-10 09:51 | disposition home or self-care (01) ==
PROVIDERS: PCP Nurse Practitioner Family; Visit Provider Nurse Practitioner Family
DX: I42.9 Cardiomyopathy, unspecified (principal); R94.39 Abnormal result of other cardiovascular function study; I10 Essential (primary) hypertension; I49.3 Ventricular premature depolarization; I25.10 Atherosclerotic heart disease of native coronary artery without angina pectoris
CPT/HCPCS: 99214

== ENCOUNTER → 2024-02-10 08:51 | Outpatient (BNVA) | payer OTHER, SELFPAY | PROVIDERS: PCP Nurse Practitioner Family; Visit Provider Nurse Practitioner Family | DX: I49.3 Ventricular premature depolarization (principal); I42.9 Cardiomyopathy, unspecified; I25.10 Atherosclerotic heart disease of native coronary artery without angina pectoris; I10 Essential (primary) hypertension; R94.39 Abnormal result of other cardiovascular function study; Z98.890 Other specified postprocedural states | CPT/HCPCS: 99212 ==

== ENCOUNTER → 2024-02-19 08:40 | Outpatient (BNVA) | payer OTHER, SELFPAY | PROVIDERS: PCP Nurse Practitioner Family; Visit Provider Nurse Practitioner Family ==

== ENCOUNTER 2024-04-06 08:37 | Outpatient (AMB) | payer OTHER, SELFPAY ==
[2024-04-06 08:40] VITALS: BP 120/72; PULSE 49; BMI 23.1
--- NOTE | 2024-04-06 08:40 | MHC.OFFVIS ---
Vital Signs 04/06/24 08:40 Height 5 ft 9 in Weight 156 lb 8.451 oz BMI 23.1 BP 120/72 Blood Pressure Location Lt brachial Position Sitting Pulse 49 L Pulse Source Monitor Intake Visit Reasons: follow up Cardiac MRI Sand Caster Apprentice Required: No Allergies No Known Allergies Allergy (Verified 04/06/24 08:41) Medication List - Last Reconciled 04/06/24 by Hodan Victoria NP-C amiodarone 200 mg PO DAILY 30 days aspirin 81 mg PO DAILY brimonidine 0.1% 1 drp ophthalmic (eye) BID rosuvastatin 10 mg PO DAILY HPI HPI follow up Cardiac MRI: Details: Chong is a 68-year-old male with past medical history of hypertension, newer finding of cardiomyopathy, PVCs, nonobstructive coronary artery disease who recently underwent a cardiac MRI and now presents for follow-up. Today he states that he feels well overall with no concerning symptoms. He denies having heart palpitations, chest discomfort at rest or with activity, no shortness of breath, presyncope, syncope, falls. No PND, orthopnea or edema. He does only light physical activities. Takes meds as direct [facility] Medical History (Updated 04/06/24 @ 11:22 by Hodan Victoria NP-C) Cardiomyopathy Prostate cancer Rectal abscess Hypertension Surgical History History of cardiac cath Hx of cataract surgery H/O hernia repair Family History Father Aneurysm Social History Household Members: Spouse Both parents involved: No Caregiver staying overnight: No Housing: House Are you a primary medicare nurse to a significant other at home: No Do you presently have visiting nurse or other home services: No 75 years or older and lives alone: No Alcohol intake: never Patient Tobacco Use Status: Former Tobacco user Tobacco use type: Cigar Years Smoked: Pateint quit 2 weeks ago. e-Cigarette/Vaping Use: Never Used service: No Current occupational status: retired Cognitive needs: No Hearing needs: No Vision needs: No Review of Systems Const All systems reviewed & are unremarkable except as noted in HPI and below ENT Denies dizziness Card Denies chest pain, Denies chest pain at rest, Denies chest pain with activity, Denies rapid heart rate, Denies pedal edema, Denies edema, Denies leg edema, Denies lightheadedness, Denies palpitations, Denies dyspnea, Denies dyspnea on exertion and Denies orthopnea Resp Denies cough, Denies dyspnea and Denies dyspnea on exertion GI Denies hematochezia and Denies change in stool character Musc Denies abnormal gait, Denies limited range of motion, Denies muscle cramps, Denies muscle weakness, Denies numbness, Denies radiating pain into limb, Denies stiffness and Denies tingling Neuro Denies abnormal gait, Denies dizziness, Denies numbness and Denies tingling Endo Denies palpitations Physical Exam Vital Signs: Last Vital Signs Pulse 49 L 04/06/24 08:40 BP 120/72 04/06/24 08:40 BMI result Body Mass Index 23.1 Const General: cooperative, healthy appearing, comfortable and no acute distress Orientation/consciousness: patient oriented x3 Resp Effort & Inspection: normal respiratory effort Auscultation: clear to auscultation bilaterally, no rales and no rhonchi Cardio Jugular venous distension: no JVD Rate: regular rate Rhythm: regular rhythm Heart sounds: S1 normal heart sound present, S2 normal heart sound present and no murmurs Neuro General: patient oriented x3 Extrem General: Yes normal to inspection, No no pedal edema and No calf tenderness Psych Appearance: grossly normal Mental Status: mental status grossly normal Speech and movement: Normal speech and movement present Office Procedures EKG Details: Today, read by me, sinus bradycardia, nonspecific T-wave abnormality, rate 49, QTC 431 millisecond [id number], Complete Assessment & Plan Assessment & Plan (1) Cardiomyopathy: Code(s): I42.9 - Cardiomyopathy, unspecified Category: Medical Plan: An EKG was done 07/04/2023 showing sinus bradycardia with frequent PVCs. This led to echocardiogram done on 07/31/2023 showing EF 30-35%, basal inferior akinetic, [id number] MR, ascending aorta 3.9, sinus of Valsalva 4.3. He was seen in Cardiology consultation and a nuclear stress test was done on 12/17/2023 with exercise 6 minutes achieving 94% MPHR, no anginal symptoms, PVCs and couplets, no EKG changes of ischemia and nuclear scan showing possible infarct of the basal inferior lateral wall. A Holter monitor was done on 12/16 for 2 days showing sinus rhythm with average heart rate 67, sinus bradycardia 40% of the time with heart rate less than 60, PVCs 10.4% of time with frequent NSVT, longest 5 beats. He was put on low-dose metoprolol 12.5 mg daily. Cardiac catheterization was done on 01/27/2024 showing mid RCA 40% stenosis. This does not account for his cardiomyopathy, abnormal stress test or frequent PVCs. He then underwent a cardiac MRI on 03/08/2024 showing anterior lateral myocardial contour abnormalities and delayed enhancement are very abnormal, pattern nonspecific, could represent cardiac sarcoidosis. Familial or genetic cardiomyopathy is on differential, less likely variant of LV non compaction cardiomyopathy or hypertrophic cardiomyopathy. Test results reviewed with him in detail. A cardiac PET scan has been ordered however not completed as of yet. At this time he is asymptomatic. His metoprolol had been changed over to amiodarone to assist with PVC suppression, EF 44%. An EKG done today showing sinus bradycardia, nonspecific T-wave abnormality, rate 49, QTC 431 milliseconds. His blood pressure has been borderline. At this time blood pressure 120/72. Will trial low-dose valsartan to help with neurohormonal modulation. BMP in 1 week. Signs and symptoms of heart failure reviewed. Avoidance of stimulants reviewed, he can continue activity as tolerated. Cardiology follow-up 2 mo, to go over PET scan and plan of care. (2) Abnormal nuclear stress test: Code(s): R94.39 - Abnormal result of other cardiovascular function study Category: Medical Plan: As above (3) Hypertension: Code(s): I10 - Essential (primary) hypertension Category: Medical Qualifiers: Hypertension type: primary hypertension Qualified Code(s): I10 - Essential (primary) hypertension Plan: Well controlled at this time. No med change (4) PVC (premature ventricular contraction): Code(s): I49.3 - Ventricular premature depolarization Category: Medical Plan: Holter monitor findings of frequent PVCs. Also reduced EF 30-35%. He was initially put on low-dose metoprolol then changed over to amiodarone to help suppress PVCs. His heart rate does run low, asymptomatic. Will recheck a Holter monitor to assess PVC frequency. With upcoming labs will check LFTs and TSH with amiodarone use. (5) CAD (coronary artery disease): Comment: Cardiac catheterization 01/27/2024 shows lad minimal irregularities, left circumflex normal, RCA mid 40% stenosis. Code(s): I25.10 - Atherosclerotic heart disease of [place] coronary artery without angina pectoris Category: Medical Plan: Nonobstructive coronary artery disease, new finding on cardiac catheterization. No anginal sounding symptoms. Will have him start on aspirin 81 mg daily. He has taken atorvastatin in the past and reports muscle cramps. Will have him start on low dose rosuvastatin 10 mg daily. Labs done on 01/19/2024 had shown LDL 132. He will need a repeat fasting lipids in about 6-8 weeks. Continue low-dose metoprolol. Plan Time spent on chart review, documentation, interview and assessment Orders: Orders Comprehensive Met. Panel 04/06/24 I42.9 - Cardiomyopathy, unspecified Lipid Panel 04/06/24 I25.10 - Atherosclerotic heart disease of [place] coronary artery without angina pectoris TSH reflex Free T4 04/06/24 I25.10 - Atherosclerotic heart disease of [place] coronary artery without angina pectoris Medications: New valsartan New 20 mg (1/2 x 40 mg) PO BID 30 tabs 3RF Coding Level of Care Code Est Pt Level 4 (77301) Diagnoses Cardiomyopathy I42.9 Abnormal nuclear stress test R94.39 Primary hypertension I10 Hypertension type: primary hypertension PVC (premature ventricular contraction) I49.3 CAD (coronary artery disease) I25.10 CPT Codes EKG - CPT: [id number], Complete ([id number])
== END 2024-04-06 09:07 | disposition home or self-care (01) ==
PROVIDERS: PCP Nurse Practitioner Family; Visit Provider Nurse Practitioner Family
DX: R00.1 Bradycardia, unspecified (principal)
CPT/HCPCS: 93010; 99214

== ENCOUNTER → 2024-04-06 08:37 | Outpatient (BNVA) | payer OTHER, SELFPAY | PROVIDERS: PCP Nurse Practitioner Family; Visit Provider Nurse Practitioner Family | DX: I42.9 Cardiomyopathy, unspecified (principal); R94.39 Abnormal result of other cardiovascular function study; I10 Essential (primary) hypertension; I49.3 Ventricular premature depolarization; I25.10 Atherosclerotic heart disease of native coronary artery without angina pectoris; Z79.899 Other long term (current) drug therapy | CPT/HCPCS: 93005; 99212 ==

== ENCOUNTER 2024-04-13 07:33 | Outpatient (REF) | payer OTHER, SELFPAY ==
[2024-04-13 12:16] LABS: Alanine Aminotransferase 33 U/L (0-40); Albumin Level 4.2 g/dL (3.5-5.0); Alkaline Phosphatase 72 U/L (39-117); Anion Gap 12 (12-20); Aspartate Amino Transferase 31 U/L (5-37); Bilirubin Total 0.4 mg/dL (0.0-1.0); Blood Urea Nitrogen 23 mg/dL (9-16); Calcium 9.4 mg/dL (8.4-10.2); Carbon Dioxide 25 mmol/L (22-29); Chloride 109 mmol/L (96-108); Cholesterol 134 mg/dL (<200); Estimated Glomerular Filt Rate > 60; Glucose Random 64 mg/dL (60-115); HDL Cholesterol 53 mg/dL (>40); LDL Cholesterol Calculated 56 mg/dL (<100); Potassium 4.1 mmol/L (3.3-5.1); Sodium 142 mmol/L (135-145); Total Protein 6.7 g/dL (6.5-8.0); Triglycerides 125 mg/dL (<150)
[2024-04-13 12:33] LABS: TSH reflex Free T4 0.99 uIU/mL (0.32-4.0)
== END 2024-04-13 07:34 | disposition home or self-care (01) ==
LOC: HO.WFDLDS 07:33
PROVIDERS: Visit Provider Nurse Practitioner Family
DX: I42.9 Cardiomyopathy, unspecified (principal); I25.10 Atherosclerotic heart disease of native coronary artery without angina pectoris
CPT/HCPCS: 36415; 80053; 80061; 84443

== ENCOUNTER 2024-04-20 07:34 | Outpatient (REF) | payer OTHER, SELFPAY ==
[2024-04-20 11:49] LABS: Cholesterol 133 mg/dL (<200); HDL Cholesterol 50 mg/dL (>40); LDL Cholesterol Calculated 67 mg/dL (<100); Triglycerides 80 mg/dL (<150)
== END 2024-04-20 07:35 | disposition home or self-care (01) ==
LOC: HO.WFDLDS 07:34
PROVIDERS: Visit Provider Nurse Practitioner Family
DX: E78.00 Pure hypercholesterolemia, unspecified (principal)
CPT/HCPCS: 36415; 80061

== ENCOUNTER 2024-04-27 08:51 | Outpatient (AMB) | payer OTHER, SELFPAY ==
--- NOTE | 2024-04-27 08:33 | A.OFFPC_ITS ---
Vital Signs 04/27/24 09:02 BMI Reason not done Patient refused/unable BP 126/74 Blood Pressure Location Rt brachial Position Sitting Respiration 16 Pulse 50 Pulse Source Pulse Oximeter Pulse Oximetry (%) 94 Oxygen Delivery Method Room Air Intake Visit Reasons: 3 mos HTN, high cholesterol Intake Note: Three month follow up [employer] Required: No Allergies No Known Allergies Allergy (Verified 04/27/24 09:01) Tobacco use date assessed: 04/27/24 Fall risk assessment: No Falls in past year Last assessed Fall Risk: 04/27/24 Dental Screening Dental Screen Date: 12/08/23 HPI HPI Comments History of Present Illness Details 69-year-old male presents for hypertensi on and hyperlipidemia follow-up He admits to taking his medications as prescribed without adverse reactions He notes that he has been eating and sleeping well. He has not been exercising He offers no complaints and denies acute symptoms at this time [facility] Medical History (Updated 04/06/24 @ 11:22 by Hodan Victoria NP-C) Cardiomyopathy Prostate cancer Rectal abscess Hypertension Surgical History History of cardiac cath Hx of cataract surgery H/O hernia repair Family History Father Aneurysm Social History Household Members: Spouse Housing: House Are you a primary career placement services counselor to a significant other at home: No Do you presently have visiting nurse or other home services: No Alcohol intake: never Patient Tobacco Use Status: Former Tobacco user Tobacco use type: Cigar Years Smoked: Pateint quit 2 weeks ago. e-Cigarette/Vaping Use: Never Used service: No Current occupational status: retired Cognitive needs: No Hearing needs: No Vision needs: No Questionnaire Thrive Questionnaire Date Thrive assessed: 12/08/23 AMALIA-7 AMB Questionnaire AMALIA-7 Date AMALIA - 7 assessed: 12/08/23 Source: Developed by Drs. Cristino Morris, Nory Molina, Luca Wills and colleagues, with an educational regina from [employer]. Review of Systems Const Details: Const Denies chills, Denies fatigue, Denies fever(s), Denies headache(s) and Denies weakness ENT Denies dizziness and Denies headache(s) Card Denies chest pain, Denies lightheadedness, Denies dyspnea and Denies other (Palpitations) Resp Denies cough, Denies dyspnea, Denies wheezing and Denies other ( shortness of breath) GI Denies abdominal pain, Denies melena, Denies hematochezia, Denies change in bowel habits, Denies dyspepsia and Denies nausea Denies hematuria and Denies dysuria Musc Denies abnormal gait, Denies myalgias, Denies arthralgias, Denies numbness and Denies tingling Skin/Breast Denies rash, Denies unusual bruising and Denies wounds Neuro Denies abnormal gait, Denies dizziness, Denies headache(s), Denies memory loss, Denies numbness, Denies Sensory deficit (Neuro), Denies tingling and Denies weakness Psych Denies anxiety, Denies depression, Denies memory loss Endo Denies cold intolerance, Denies fatigue, Denies heat intolerance, Denies polydipsia and Denies polyuria Aller/Immun Denies wheezing Physical exam (Primary Care) Tobacco/Smoking Status: Tobacco use Status Tobacco use date assessed 12/08/23 04/27/24 08:34 Patient Tobacco Use Status Former Tobacco user 04/27/24 08:34 Tobacco use type Cigar 04/27/24 08:34 e-Cigarette/Vaping Use Never Used 04/27/24 08:34 Thrive Assessment: Date of Thrive Assessment Date Thrive assessed 12/08/23 04/27/24 08:34 Const Other: General: no acute distress and well developed Nutritional Appearance: well nourished Orientation/consciousness: patient oriented x3 HENMT Head: Yes normocephalic and Yes atraumatic Eyes General: appearance normal, both eyes and all related structures Pupils: Equal, round and reactive pupils present EOM: EOMs intact bilaterally Resp Effort & Inspection: normal respiratory effort Auscultation: clear to auscultation bilaterally Cardio Rate: regular rate Rhythm: regular rhythm Heart sounds: S1 normal heart sound present, S2 normal heart sound present, no gallops, no murmurs and no rubs GI Palpation (GI): No Abdominal aortic bruit present, Soft to palpation, nontender, No hepatosplenomegaly present and No Rebound tenderness present Auscultation: normal bowel sounds General: Yes no CVA tenderness Back/Spine/Pelvis Back: no CVA tenderness Cervical Spine: cervical ROM normal and No Cervical spine tenderness Thoracic/Lumbar Spine: thoraco-lumbar ROM normal, No pain with thoraco-lumbar ROM, No thoracic spinal tenderness and No lumbar spinal tenderness Extrem General: Yes normal to inspection, No edema and No calf tenderness Skin General: warm and dry. Normal skin color. Normal skin turgor Neuro General: patient oriented x3, gait normal and no focal neuro deficit Cranial nerves: Yes Equal, round and reactive pupils present Cognition (Neuro): normal cognition Gait exam (Neuro): Normal gait present Sensory Exam: No Sensory deficit (Neuro) Psych Appearance: grossly normal Affect: normal affect Attitude: cooperative Thought process: Normal thought process present Assessment and Plan Assessment & Plan (1) Hypertension: Code(s): I10 - Essential (primary) hypertension Qualifiers: Hypertension type: primary hypertension Qualified Code(s): I10 - Essential (primary) hypertension Plan: Blood pressure is 126/74, within goal of less than 130/80 Continue current treatment regimen Low-sodium diet encouraged Continue follow-up with cardiology as planned Return in 3 months or sooner with symptoms or concerns Verbalized understanding and agreed with the treatment plan (2) Hypercholesterolemia: Code(s): E78.00 - Pure hypercholesterolemia, unspecified Plan: Recent lipid panel levels are normal; LDL is 67 Continue current treatment regimen Encouraged to limit foods high in saturated fat and avoid foods high in trans fat Routine exercise encouraged Continue follow-up with cardiology as planned Verbalized understanding and agreed with treatment plan Coding Level of Care Code Est Pt Level 4 (92941) Diagnoses Primary hypertension I10 Hypertension type: primary hypertension Hypercholesterolemia E78.00
[2024-04-27 09:02] VITALS: BP 126/74; PULSE 50; RESP 16; O2SAT 94
== END 2024-04-27 09:13 | disposition home or self-care (01) ==
PROVIDERS: PCP Nurse Practitioner Family; Visit Provider Nurse Practitioner Family
DX: I10 Essential (primary) hypertension (principal); E78.00 Pure hypercholesterolemia, unspecified
CPT/HCPCS: 99214

== ENCOUNTER 2024-05-04 09:15 | Outpatient (AMB) | payer OTHER, SELFPAY ==
[2024-05-04 09:17] VITALS: BP 145/79; PULSE 55; BMI 23.6
--- NOTE | 2024-05-04 09:17 | A.OFFVIS_ITS ---
Vital Signs 05/04/24 09:17 Height 5 ft 9 in Weight 160 lb 0.889 oz BMI 23.6 BP 145/79 H Blood Pressure Location Rt brachial Position Sitting Pulse 55 Intake Visit Reasons: Colonoscopy Screening Intake Note: Chong presents to in office today as a new patient for colonoscopy screening. CC: Patient reports that his last colonoscopy was about 5 years ago at [facility]. Denies having any GI concerns or symptoms today. [facility] Required: No Allergies No Known Allergies Allergy (Verified 05/04/24 09:21) HPI HPI Colonoscopy Screening: Details: 69-year-old male here for preprocedural meeting screening. Referred by Cecilia Mccauley of [facility] primary care. PMX Cardiomegaly/CAD High cholesterol Hypertension History of prostate cancer History of rectal abscess Hx of detached retina rt eye * SURGICAL HISTORY Cardiac catheterization Cataract surgery Hernia repair bilateral inguinal Surgery for detached retina Vitrectomy * ALLERGY: NKDA * bepretty LABS: Laboratory Tests 01/19/24 04/13/24 07:05 07:34 WBC 3.4 L Hgb 14.1 Hct 43.0 Plt Count 193 Estimated GFR > 60 Total Bilirubin 0.4 AST 31 ALT 33 Alkaline Phosphatase 72 TSH 0.99 TODAY'S VISIT This will be his 3rd or 4th colonoscopy. He has ahx of polyps per pt report and his scopes have been at [facility]. No bowel or upper GI problems. There are no prior problems with anesthesia or sedation. His CAD well controlled no respiratory problems. No ID problems. He has a reported hx of polyps. [facility] Medical History Cardiomyopathy Prostate cancer Rectal abscess Hypertension Surgical History H/O colonoscopy S/P narciso-rectal abscess repair, follow-up exam History of cardiac cath Hx of cataract surgery H/O hernia repair Family History Father Aneurysm Social History (Reviewed 05/04/24 @ 09:27 by Marina Owens CCMRavi Household Members: Spouse Both parents involved: No Caregiver staying overnight: No Housing: House Are you a primary healthcare customer service to a significant other at home: No Do you presently have visiting nurse or other home services: No 75 years or older and lives alone: No Alcohol intake: never Patient Tobacco Use Status: Former Tobacco user Tobacco use type: Cigar Years Smoked: Pateint quit 2 weeks ago. e-Cigarette/Vaping Use: Never Used service: No Current occupational status: retired Cognitive needs: No Hearing needs: No Vision needs: No Review of Systems Const Denies fatigue, Denies fever(s), Denies night sweats, Denies poor appetite and Denies weight loss ENT Reports Normal hearing present, Denies dental pain, Denies dysphagia, Denies hearing loss, Denies mouth pain, Denies odynophagia, Denies throat swelling, Den ies tongue swelling and Reports other (Dentition adequate) Card Reports no additional complaints Resp Reports no additional complaints GI Details: Denies abdominal pain, Denies melena, Denies bloating, Denies hematochezia, Denies constipation, Denies GI cramping, Denies dysphagia, Denies excessive flatus, Denies early satiety, Denies heartburn, Denies diarrhea, Denies nausea, Denies odynophagia, Denies vomiting and Denies hematemesis Skin/Breast Denies pruritus, Denies lesions, Denies rash and Denies jaundice Neuro Reports Normal hearing present and Denies Abnormal speech present Endo Denies fatigue Aller/Immun Denies throat swelling and Denies tongue swelling Physical Exam Vital Signs: Last Vital Signs Pulse 55 05/04/24 09:17 BP 145/79 H 05/04/24 09:17 BMI result Body Mass Index 23.6 Const General: cooperative, no acute distress, well developed and well groomed Nutritional Appearance: average body habitus, well nourished and obese Orientation/consciousness: oriented to person, oriented to place and oriented to time Limitations: No language barrier HEENT Head: Yes normocephalic and Yes atraumatic Eyes General: appearance normal, both eyes and all related structures Pupils: Equal, round and reactive pupils present Neck Neck: Yes normal visual inspection and Yes no lymphadenopathy Thyroid: Thyroid normal Resp Effort & Inspection: normal respiratory effort and able to speak in complete sentences Auscultation: clear to auscultation bilaterally Cardio Rate: regular rate Rhythm: regular rhythm Heart sounds: Normal, physiologic split S2 sound present Peripheral pulses: radial pulses present and posterior tibial pulses present GI Inspection: No distended and No Abdominal panniculus present Palpation (GI): Soft to palpation, nontender, no guarding, not rigid and No hepatosplenomegaly present Percussion: Yes normal to percussion Auscultation: normal bowel sounds Rectal Exam - Male: Yes deferred Skin General skin exam: no rashes or lesions noted, turgor normal, skin not dry, no jaundice, No spider nevi and no striae Rashes: no rashes Nails: normal Neuro General: oriented to person, oriented to place and oriented to time Cranial nerves: Yes Equal, round and reactive pupils present and Yes Normal hearing present Speech: No Abnormal speech present Extrem General: Yes normal to inspection, No clubbing, No cyanosis and No edema Psych Appearance: grossly normal and well kempt Mental Status: mental status grossly normal Speech and movement: Normal speech and movement present Affect: normal affect Attitude: cooperative Thought process: Normal thought process present and not confabulating Thought content: Normal thought content present Insight: Good insight present (Psych) Judgement: Good judgement present (Psych) Assessment & Plan Assessment & Plan (1) Tubular adenoma of colon: Code(s): D12.6 - Benign neoplasm of colon, unspecified Category: Medical (2) Pre-op examination: Code(s): Z01.818 - Encounter for other preprocedural examination Category: Medical Plan This will be his 3rd or 4th colonoscopy. He has ahx of polyps per pt report and his scopes have been at [facility]. No bowel or upper GI problems. There are no prior problems with anesthesia or sedation. His CAD well controlled no respiratory problems. No ID problems. He has a reported hx of polyps. Orders: Orders Colonoscopy - GI Use Only 05/04/24 D12.6 - Benign neoplasm of colon, unspecified Medications: New sodium,potassium,mag sulfates 17.5-3.13-1.6 gram (Suprep Bowel Prep Kit) 480 mL orally; FOR COLONOSCOPY PREP 354 mL 0RF Coding Level of Care Code New Pt Level 3 (25137) Diagnoses Tubular adenoma of colon D12.6 Pre-op examination Z01.818
== END 2024-05-04 09:45 | disposition home or self-care (01) ==
PROVIDERS: PCP Nurse Practitioner Family; Visit Provider Nurse Practitioner
DX: D12.6 Benign neoplasm of colon, unspecified (principal); Z01.818 Encounter for other preprocedural examination
CPT/HCPCS: 99203; 99213

== ENCOUNTER → 2024-05-04 09:15 | Outpatient (BNVA) | payer OTHER, SELFPAY | PROVIDERS: PCP Nurse Practitioner Family; Visit Provider Nurse Practitioner | DX: Z01.818 Encounter for other preprocedural examination (principal); D12.6 Benign neoplasm of colon, unspecified | CPT/HCPCS: 99202 ==

== ENCOUNTER 2024-06-15 09:37 | Outpatient (AMB) | payer OTHER, SELFPAY ==
[2024-06-15 09:44] VITALS: BP 116/70; PULSE 49; BMI 23.1
--- NOTE | 2024-06-15 09:44 | MHC.OFFVIS ---
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 In the past, was seen regarding cardiomyopathy as well as frequent PVCs. No known coronary artery disease myocardial infarction in the past. Fairly active without any clear-cut symptoms. He has undergone comprehensive workup including echocardiogram, stress test, Holter, cardiac MRI as well as cardiac PET. Overall, he states he feels okay. [facility] Medical History Cardiomyopathy Prostate cancer Rectal abscess Hypertension Surgical History H/O colonoscopy S/P narciso-rectal abscess repair, follow-up exam History of cardiac cath Hx of cataract surgery H/O hernia repair Family History Father Aneurysm Social History Household Members: Spouse Both parents involved: No Caregiver staying overnight: No Housing: House Are you a primary progressive care unit registered nurse to a significant other at home: No Do you presently have visiting nurse or other home services: No 75 years or older and lives alone: No Alcohol intake: never Patient Tobacco Use Status: Former Tobacco user Tobacco use type: Cigar Years Smoked: Pateint quit 2 weeks ago. e-Cigarette/Vaping Use: Never Used service: No Current occupational status: retired Cognitive needs: No Hearing needs: No Vision needs: No Review of Systems Const Denies chills, Denies fatigue, Denies fever(s), Denies weight gain and Denies weight loss ENT Denies dizziness Card Denies chest pain, Denies leg edema, Denies lightheadedness, Denies palpitations, Denies dyspnea on exertion, Denies orthopnea and Denies other Resp Denies cough and Denies dyspnea on exertion GI Denies hematochezia and Denies change in stool character Musc Denies abnormal gait, Denies muscle weakness, Denies numbness, Denies radiating pain into limb and Denies tingling Neuro Denies abnormal gait, Denies dizziness, Denies numbness and Denies tingling Endo Denies fatigue and Denies palpitations Physical Exam Vital Signs: Last Vital Signs Pulse 49 L 06/15/24 09:44 BP 116/70 06/15/24 09:44 BMI result Body Mass Index 23.1 Const General: comfortable and no acute distress Orientation/consciousness: patient oriented x3 HEENT Other: Unremarkable Head: Yes normal to inspection Neck Neck: Yes normal visual inspection Chest Chest palpation & inspection: normal inspection of the chest Resp Auscultation: clear to auscultation bilaterally Cardio Palpation: normal PMI Heart sounds: S1 normal heart sound present, S2 normal heart sound present, no gallops, no murmurs and no rubs GI Palpation (GI): Soft to palpation Back/Spine/Pelvis Other: unremarkable Skin General skin exam: no rashes or lesions noted Neuro General: patient oriented x3 Extrem General: Yes normal to inspection Psych Mental Status: mental status grossly normal Office Procedures EKG Details: EKG with sinus bradycardia at 49/Min; LVH/QRS widening; nonspecific ST-T changes; corrected QT is 467 milliseconds. [id number], Complete Assessment & Plan Assessment & Plan (1) Nonischemic cardiomyopathy: Code(s): I42.8 - Other cardiomyopathies Category: Medical (2) Atherosclerotic cardiovascular disease: Code(s): I25.10 - Atherosclerotic heart disease of [place] coronary artery without angina pectoris Category: Medical (3) PVC (premature ventricular contraction): Code(s): I49.3 - Ventricular premature depolarization Category: Medical Plan Cardiac studies reviewed. Echocardiogram with LVEF of 30-35%. Basal inferior akinesis. Sala-ea-qmxmirqh mitral regurgitation. Mild dilatation of sinus of Valsalva/ascending aorta. In the exercise stress test, no increase in PVCs during exercise. Perfusion imaging suggestive of possible infarct in the basal inferolateral wall. Cardiac catheterization with mid RCA 40% stenosis but otherwise unremarkable. Cardiac MRI with LVEF of 44%. Basal inferior/inferolateral/anterolateral hypokinesis. Increased LV trabeculation. Areas of severe myocardial thinning. Mild asymmetric hypertrophy. Intracavitary gradient. Moderate mitral regurgitation. 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 Cardiac PET without any evidence of sarcoidosis. Holter shows underlying sinus rhythm with an average rate of 67/Min; frequent sinus bradycardia and frequent PVCs with a burden of 10%. Frequent NSVT. With regard to management, he remains on amiodarone. Etiology for the cardiac MRI findings not very clear. We will send him for a 2nd opinion. Total time spent including review of data, counseling, documentation, coordination of care-50 minutes. Orders: Referrals Cardiology Referral I42.8 - Other cardiomyopathies, I49.3 - Ventricular premature depolarization Coding Level of Care Code Est Pt Level 5 (09158) Diagnoses Nonischemic cardiomyopathy I42.8 Atherosclerotic cardiovascular disease I25.10 PVC (premature ventricular contraction) I49.3 CPT Codes EKG - CPT: 44554-[id number], Complete ([id number])
== END 2024-06-15 10:27 | disposition home or self-care (01) ==
PROVIDERS: PCP Nurse Practitioner Family; Visit Provider Internal Medicine
DX: I42.8 Other cardiomyopathies (principal); I25.10 Atherosclerotic heart disease of native coronary artery without angina pectoris; I49.3 Ventricular premature depolarization
CPT/HCPCS: 93010; 99215

== ENCOUNTER → 2024-06-15 09:37 | Outpatient (BNVA) | payer OTHER, SELFPAY | PROVIDERS: PCP Nurse Practitioner Family; Visit Provider Internal Medicine | DX: I42.8 Other cardiomyopathies (principal); I25.10 Atherosclerotic heart disease of native coronary artery without angina pectoris; I49.3 Ventricular premature depolarization | CPT/HCPCS: 93005; 99212 ==

== ENCOUNTER 2024-08-03 08:51 | Outpatient (AMB) | payer OTHER, SELFPAY ==
--- NOTE | 2024-08-03 08:52 | MHC.PC.OV ---
Vital Signs 08/03/24 08:56 Height 5 ft 9 in Weight 154 lb BMI 22.7 BP 118/76 Blood Pressure Location Lt brachial Position Sitting Respiration 16 Pulse 51 Pulse Source Pulse Oximeter Temp 97.5 F Temp Source Oral Pulse Oximetry (%) 98 Oxygen Delivery Method Room Air Intake Visit Reasons: 3 mos HTN Intake Note: patient here for follow up on HTN Coin Purse Framer Required: No Allergies No Known Allergies Allergy (Verified 08/03/24 09:18) Medication List - Last Reconciled 08/03/24 by Cecilia Mccauley CNP amiodarone 200 mg PO DAILY 30 days aspirin 81 mg PO DAILY brimonidine 0.1% 1 drp ophthalmic (eye) BID rosuvastatin 10 mg PO DAILY 90 days sodium,potassium,mag sulfates 17.5-3.13-1.6 gram (Suprep Bowel Prep Kit) 480 mL orally; FOR COLONOSCOPY PREP valsartan 20 mg (1/2 x 40 mg) PO BID 90 days Tobacco use date assessed: 08/03/24 Fall risk assessment: No Falls in past year Last assessed Fall Risk: 08/03/24 Dental Screening Dental Screen Date: 08/03/24 Did you have a dental visit in the last 12 months?: Yes Did you have a dental problem in the last 6 months where you did not have access to dental care?: No Was dental information given to patient?: Patient has dentist HPI HPI Comments History of Present Illness Details The patient is a 69-year-old male presenting with a routine follow-up for blood pressure monitoring. His blood pressure has previously been stable, and today's checkup is part of a scheduled three-month follow-up. Currently, the patient's blood pressure is recorded at 118/76 mmHg, which is within the target goal of less than 130/80 mmHg. The patient denies any new symptoms or issues and reports no adverse reactions to medications. He also confirms adherence to a low-sodium diet, avoiding foods high in salt. [facility] Medical History Cardiomyopathy Prostate cancer Rectal abscess Hypertension Surgical History H/O colonoscopy S/P narciso-rectal abscess repair, follow-up exam History of cardiac cath Hx of cataract surgery H/O hernia repair Family History Father Aneurysm Social History Household Members: Spouse Both parents involved: No Caregiver staying overnight: No Housing: House Are you a primary patient care secretary to a significant other at home: No Do you presently have visiting nurse or other home services: No 75 years or older and lives alone: No Alcohol intake: never Patient Tobacco Use Status: Former Tobacco user Tobacco use type: Cigar Years Smoked: Pateint quit 2 weeks ago. e-Cigarette/Vaping Use: Never Used service: No Current occupational status: retired Cognitive needs: No Hearing needs: No Vision needs: No Questionnaire PHQ-9 Over the last 2 weeks, how often have you been bothered by any of the following problems? 1. Little interest or pleasure in doing things: not at all 2. Feeling down, depressed, or hopeless: not at all 3. Trouble falling or staying asleep, or sleeping too much: not at all 4. Feeling tired or having little energy: not at all 5. Poor appetite or overeating: not at all 6. Feeling bad about yourself - or that you are a failure or have let yourself or your family down: not at all 7. Trouble concentrating on things, such as reading the newspaper or watching television: not at all 8. Moving or speaking so slowly that other people could have noticed. Or the opposite - being so fidgety or restless that you have been moving around a lot more than usual: not at all 9. Thoughts that you would be better off or of hurting yourself in some way: not at all Total score: 0 Depression Screening Interpretation: Negative Depression Screening Done: Yes Source: Developed by Drs. Cristino Morris, Nory Molina, Luca Wills and colleagues, with an educational regina from [employer]. Thrive Questionnaire Date Thrive assessed: 08/03/24 I am a: Patient What is your living situation today?: I have a steady place to live Within the past 12 months, did the food you bought not last and you didn't have the money to get more?: Never true Within the past 12 months, did you worry whether your food would run out before you got money to buy more?: Never true Do you have trouble paying for medicines?: No Do you have trouble getting transportation to medical appointments?: No Do you have trouble paying your heating and electricity bill?: No Do you have trouble taking care of your child, family member or friend?: No Do you have trouble with day-to-day activities such as bathing, preparing meals, shopping, managing finances, etc.?: No Are you currently unemployed and looking for a job?: No Are you interested in more education?: No Please select the resources that you would like help with: None Currently or been in a relationship where the following occur: No concerns reported THRIVE Score: 0 AUDIT C Alcohol Use Questionnaire (AUDIT-C) 1. How often do you have a drink containing alcohol?: Never Total Score: 0 AMALIA-7 AMB Questionnaire AMALIA-7 Date AMALIA - 7 assessed: 08/03/24 Feeling nervous, anxious, or on edge: 0 = Not at all Not being able to stop or control worryin = Not at all Worrying too much about different things: 0 = Not at all Trouble relaxin = Not at all Being so restless that it is hard to sit still: 0 = Not at all Becoming easily annoyed or irritable: 0 = Not at all Feeling afraid as if something awful might happen: 0 = Not at all Total AMALIA-7 score (0-4 normal; 5-9 mild; 10-14 moderate; 15-21 severe): 0 Source: Developed by Drs. Cristino Morris, Nory Molina, Luca Wills and colleagues, with an educational regina from [employer]. AMALIA-7 Assessment Billing AMALIA-7 Assessment Tool: AMALIA-7 Assessment 67682 Review of Systems Const Details: Const Denies chills, Denies fatigue, Denies fever(s), Denies headache(s) and Denies weakness ENT Denies dizziness and Denies headache(s) Card Denies chest pain, Denies lightheadedness, Denies dyspnea and Denies other (Palpitations) Resp Denies cough, Denies dyspnea, Denies wheezing and Denies other ( shortness of breath) GI Denies abdominal pain, Denies melena, Denies hematochezia, Denies change in bowel habits, Denies dyspepsia and Denies nausea Denies hematuria and Denies dysuria Musc Denies abnormal gait, Denies myalgias, Denies arthralgias, Denies numbness and Denies tingling Skin/Breast Denies rash, Denies unusual bruising and Denies wounds Neuro Denies abnormal gait, Denies dizziness, Denies headache(s), Denies memory loss, Denies numbness, Denies Sensory deficit (Neuro), Denies tingling and Denies weakness Psych Denies anxiety, Denies depression, Denies memory loss Endo Denies cold intolerance, Denies fatigue, Denies heat intolerance, Denies polydipsia and Denies polyuria Aller/Immun Denies wheezing Physical exam (Primary Care) Vital Signs: Last Vital Signs Temp 97.5 F 08/03/24 08:56 Pulse 51 08/03/24 08:56 Resp 16 08/03/24 08:56 BP 118/76 08/03/24 08:56 Pulse Ox 98 08/03/24 08:56 Oxygen Delivery Method Room Air 08/03/24 08:56 BMI result Body Mass Index 22.7 Tobacco/Smoking Status: Tobacco use Status Tobacco use date assessed 08/03/24 08/03/24 09:00 Patient Tobacco Use Status Former Tobacco user 08/03/24 09:00 Tobacco use type Cigar 08/03/24 09:00 e-Cigarette/Vaping Use Never Used 08/03/24 09:00 PHQ-9: PHQ-9 Score PHQ-9: Total score 0 08/03/24 09:04 Depression Screening Interpretation: Negative Thrive Assessment: Date of Thrive Assessment Date Thrive assessed 08/03/24 08/03/24 09:04 Currently or been in a relationship where the following occur: No concerns reported Const Other: General: no acute distress and well developed Nutritional Appearance: well nourished Orientation/consciousness: patient oriented x3 HENMT Head: Yes normocephalic and Yes atraumatic Eyes General: appearance normal, both eyes and all related structures Pupils: Equal, round and reactive pupils present EOM: EOMs intact bilaterally Resp Effort & Inspection: normal respiratory effort Auscultation: clear to auscultation bilaterally Cardio Rate: regular rate Rhythm: regular rhythm Heart sounds: S1 normal heart sound present, S2 normal heart sound present, no gallops, no murmurs and no rubs GI Palpation (GI): No Abdominal aortic bruit present, Soft to palpation, nontender, No hepatosplenomegaly present and No Rebound tenderness present Auscultation: normal bowel sounds General: Yes no CVA tenderness Back/Spine/Pelvis Back: no CVA tenderness Extrem General: Yes normal to inspection, No edema and No calf tenderness Skin General: warm and dry. Normal skin color. Normal skin turgor Neuro General: patient oriented x3, gait normal and no focal neuro deficit Cranial nerves: Yes Equal, round and reactive pupils present Cognition (Neuro): normal cognition Gait exam (Neuro): Normal gait present Sensory Exam: No Sensory deficit (Neuro) Psych Appearance: grossly normal Affect: normal affect Attitude: cooperative Thought process: Normal thought process present Coding Level of Care Code Est Pt Level 3 (76534) Diagnoses Primary hypertension I10 Hypertension type: primary hypertension Additional Codes AMALIA-7 Assessment Billing - AMALIA-7 Assessment Tool: AMALIA-7 Assessment 06075 ([id number]) Assessment & Plan Assessment & Plan (1) Hypertension: Code(s): I10 - Essential (primary) hypertension Category: Medical Qualifiers: Hypertension type: primary hypertension Qualified Code(s): I10 - Essential (primary) hypertension Plan: - Essential Hypertension: Continue current antihypertensive medication regimen. Maintain a low-sodium diet. Schedule routine follow-up in three months. Prior to the next appointment, a fasting lipid panel is to be performed to assess cholesterol levels. I explained to the patient that his blood pressure is well-controlled at 118/76 mmHg, falling within the desired range of less than 130/80 mmHg. We discussed the importance of continuing his current medication regimen and adherence to a low-sodium diet to maintain optimal blood pressure levels. The patient agreed to undergo a fasting lipid panel prior to his next appointment in three months to monitor cholesterol levels. I also clarified details about the flu shot he recently received and the potential need for a pneumococcal vaccine. We discussed the benefit of maintaining current lifestyle modifications like dietary restrictions to aid in hypertension management. I encouraged the patient to contact our office for any concerns prior to the scheduled follow-up. - Continue taking prescribed blood pressure medications as directed. - Maintain a low-sodium diet by avoiding foods high in salt and processed foods. - Schedule and complete fasting lipid panel lab work 10-12 hours prior to next appointment. - Follow up in three months for routine blood pressure monitoring. - Contact our office if there are any changes in health or adverse reactions to medications. Patient was informed and verbally consented to the use of an ambient scribe for clinic note documentation during this visit. Orders: Orders Lipid Panel 3 Months E78.00 - Pure hypercholesterolemia, unspecified
[2024-08-03 08:56] VITALS: BP 118/76; PULSE 51; RESP 16; TEMP 36.4; O2SAT 98; BMI 22.7
== END 2024-08-03 09:31 | disposition home or self-care (01) ==
PROVIDERS: PCP Nurse Practitioner Family; Visit Provider Nurse Practitioner Family
DX: I10 Essential (primary) hypertension (principal)

== ENCOUNTER → 2024-08-03 08:51 | Outpatient (BNVA) | payer OTHER, SELFPAY | PROVIDERS: PCP Nurse Practitioner Family; Visit Provider Nurse Practitioner Family | DX: I10 Essential (primary) hypertension (principal); E78.00 Pure hypercholesterolemia, unspecified | CPT/HCPCS: 96127; 99212 ==

== ENCOUNTER 2024-09-27 07:50 | Outpatient (REF) | payer MEDICARE, SELFPAY ==
[2024-09-27 11:37] LABS: Cholesterol 139 mg/dL (<200); HDL Cholesterol 47 mg/dL (>40); LDL Cholesterol Calculated 80 mg/dL (<100); Triglycerides 64 mg/dL (<150)
== END 2024-09-27 07:51 | disposition home or self-care (01) ==
LOC: HO.WFDLDS 07:50
PROVIDERS: Visit Provider Nurse Practitioner Family
DX: E78.00 Pure hypercholesterolemia, unspecified (principal)
CPT/HCPCS: 36415; 80061

== ENCOUNTER 2024-10-29 10:38 | Outpatient (AMB) | payer MEDICARE, SELFPAY ==
--- NOTE | 2024-10-29 10:47 | A.OFFPC_ITS ---
Vital Signs 10/29/24 10:52 10/29/24 11:28 Height 5 ft 9 in Weight 154 lb BMI 22.7 BP 108/54 L 112/70 Blood Pressure Location Lt brachial Lt brachial Position Sitting Sitting Respiration 14 Pulse 48 L 60 Pulse Source Pulse Oximeter Auscultation Temp 98.0 F Temp Source Oral Pulse Oximetry (%) 98 Oxygen Delivery Method Room Air Intake Visit Reasons: preop Intake Note: Preop. Surgery with Dr Dupree left eye. Psychiatric Nursing Assistant Required: No Allergies No Known Allergies Allergy (Verified 10/29/24 11:20) Medication List - Last Reconciled 10/29/24 by Cecilia Mccauley CNP aspirin 81 mg PO DAILY brimonidine 0.1% 1 drp ophthalmic (eye) BID rosuvastatin 10 mg PO DAILY 90 days valsartan 20 mg (1/2 x 40 mg) PO BID 90 days Tobacco use date assessed: 08/03/24 Dental Screening Dental Screen Date: 08/03/24 HPI HPI Comments History of Present Illness Details 69-year-old male presents for preop foll ow-up. He is scheduled for cataract surgery of the left eye with Dr. Dupree in the next 2 weeks. He admits to taking his medications as prescribed without adverse reactions. He offers no complaints and denies acute symptoms at this time. [facility] Medical History Cardiomyopathy Prostate cancer Rectal abscess Hypertension Surgical History H/O colonoscopy S/P narciso-rectal abscess repair, follow-up exam History of cardiac cath Hx of cataract surgery H/O hernia repair Family History Father Aneurysm Social History Household Members: Spouse Both parents involved: No Caregiver staying overnight: No Housing: House Are you a primary vehicle care specialist to a significant other at home: No Do you presently have visiting nurse or other home services: No 75 years or older and lives alone: No Alcohol intake: never Patient Tobacco Use Status: Former Tobacco user Tobacco use type: Cigar Years Smoked: Pateint quit 2 weeks ago. e-Cigarette/Vaping Use: Never Used service: No Current occupational status: retired Cognitive needs: No Hearing needs: No Vision needs: No Questionnaire PHQ-9 Over the last 2 weeks, how often have you been bothered by any of the following problems? 1. Little interest or pleasure in doing things: not at all 2. Feeling down, depressed, or hopeless: not at all 3. Trouble falling or staying asleep, or sleeping too much: not at all 4. Feeling tired or having little energy: not at all 5. Poor appetite or overeating: not at all 6. Feeling bad about yourself - or that you are a failure or have let yourself or your family down: not at all 7. Trouble concentrating on things, such as reading the newspaper or watching television: not at all 8. Moving or speaking so slowly that other people could have noticed. Or the opposite - being so fidgety or restless that you have been moving around a lot more than usual: not at all 9. Thoughts that you would be better off or of hurting yourself in some way: not at all Total score: 0 Depression Screening Interpretation: Negative Depression Screening Done: Yes Source: Developed by Drs. Cristino Morris, Nory Molina, Luca Wills and colleagues, with an educational regina from [employer]. Thrive Questionnaire Date Thrive assessed: 08/03/24 I am a: Patient What is your living situation today?: I have a steady place to live Within the past 12 months, did the food you bought not last and you didn't have the money to get more?: Never true Within the past 12 months, did you worry whether your food would run out before you got money to buy more?: Never true Do you have trouble paying for medicines?: No Do you have trouble getting transportation to medical appointments?: No Do you have trouble paying your heating and electricity bill?: No Do you have trouble taking care of your child, family member or friend?: No Do you have trouble with day-to-day activities such as bathing, preparing meals, shopping, managing finances, etc.?: No Are you currently unemployed and looking for a job?: No Are you interested in more education?: No Please select the resources that you would like help with: None Currently or been in a relationship where the following occur: No concerns reported THRIVE Score: 0 AUDIT C Alcohol Use Questionnaire (AUDIT-C) 1. How often do you have a drink containing alcohol?: Never Total Score: 0 AMALIA-7 AMB Questionnaire AMALIA-7 Date AMALIA - 7 assessed: 08/03/24 Feeling nervous, anxious, or on edge: 0 = Not at all Not being able to stop or control worryin = Not at all Worrying too much about different things: 0 = Not at all Trouble relaxin = Not at all Being so restless that it is hard to sit still: 0 = Not at all Becoming easily annoyed or irritable: 0 = Not at all Feeling afraid as if something awful might happen: 0 = Not at all Total AMALIA-7 score (0-4 normal; 5-9 mild; 10-14 moderate; 15-21 severe): 0 Source: Developed by Drs. Cristino Morris, Nory Molina, Luca Wills and colleagues, with an educational regina from [employer]. Review of Systems Const Details: Const Denies chills, Denies fatigue, Denies fever(s), Denies headache(s) and Denies weakness ENT Denies dizziness and Denies headache(s) Card Denies chest pain, Denies lightheadedness, Denies dyspnea and Denies other (Palpitations) Resp Denies cough, Denies dyspnea, Denies wheezing and Denies other ( shortness of breath) GI Denies abdominal pain, Denies melena, Denies hematochezia, Denies change in bowel habits, Denies dyspepsia and Denies nausea Denies hematuria and Denies dysuria Musc Denies abnormal gait, Denies myalgias, Denies arthralgias, Denies numbness and Denies tingling Skin/Breast Denies rash, Denies unusual bruising and Denies wounds Neuro Denies abnormal gait, Denies dizziness, Denies headache(s), Denies memory loss, Denies numbness, Denies Sensory deficit (Neuro), Denies tingling and Denies weakness Psych Denies anxiety, Denies depression, Denies memory loss Endo Denies cold intolerance, Denies fatigue, Denies heat intolerance, Denies polydipsia and Denies polyuria Aller/Immun Denies wheezing Physical exam (Primary Care) Vital Signs: Last Vital Signs Temp 98.0 F 10/29/24 11:28 Pulse 60 10/29/24 11:28 Resp 14 10/29/24 10:52 BP 112/70 10/29/24 11:28 Pulse Ox 98 10/29/24 10:52 Oxygen Delivery Method Room Air 10/29/24 10:52 BMI result Body Mass Index 22.7 Tobacco/Smoking Status: Tobacco use Status Tobacco use date assessed 08/03/24 10/29/24 10:52 Patient Tobacco Use Status Former Tobacco user 10/29/24 10:52 Tobacco use type Cigar 10/29/24 10:52 e-Cigarette/Vaping Use Never Used 10/29/24 10:52 PHQ-9: PHQ-9 Score PHQ-9: Total score 0 10/29/24 11:35 Depression Screening Interpretation: Negative Thrive Assessment: Date of Thrive Assessment Date Thrive assessed 08/03/24 10/29/24 10:52 Currently or been in a relationship where the following occur: No concerns reported Const Other: General: no acute distress and well developed Nutritional Appearance: well nourished Orientation/consciousness: patient oriented x3 HENMT Head: Yes normocephalic and Yes atraumatic Eyes General: appearance normal, both eyes and all related structures Pupils: Equal, round and reactive pupils present EOM: EOMs intact bilaterally Resp Effort & Inspection: normal respiratory effort Auscultation: clear to auscultation bilaterally Cardio Rate: regular rate Rhythm: regular rhythm Heart sounds: S1 normal heart sound present, S2 normal heart sound present, no gallops, no murmurs and no rubs GI Palpation (GI): No Abdominal aortic bruit present, Soft to palpation, nontender, No hepatosplenomegaly present and No Rebound tenderness present Auscultation: normal bowel sounds General: Yes no CVA tenderness Back/Spine/Pelvis Back: no CVA tenderness Cervical Spine: cervical ROM normal and No Cervical spine tenderness Thoracic/Lumbar Spine: thoraco-lumbar ROM normal, No pain with thoraco-lumbar ROM, No thoracic spinal tenderness and No lumbar spinal tenderness Extrem General: Yes normal to inspection, No edema and No calf tenderness Skin General: warm and dry. Normal skin color. Normal skin turgor Lesions: no lesions Rashes: no rashes Trauma: no lacerations or abrasions Wounds: no wounds Nails: normal Neuro General: patient oriented x3, gait normal and no focal neuro deficit Cranial nerves: Yes Equal, round and reactive pupils present Cognition (Neuro): normal cognition Gait exam (Neuro): Normal gait present Sensory Exam: No Sensory deficit (Neuro) Psych Appearance: grossly normal Affect: normal affect Attitude: cooperative Thought process: Normal thought process present Coding Level of Care Code Est Pt Level 4 (45282) Diagnoses Pre-op examination Z01.818 Primary hypertension I10 Hypertension type: primary hypertension Hypercholesterolemia E78.00 Assessment & Plan Assessment & Plan (1) Pre-op examination: Code(s): Z01.818 - Encounter for other preprocedural examination Category: Medical Plan: Normal physical exam. Vital signs stable. He will be cleared pending CBC and CMP results. Advised to get fasting blood work done as soon as possible. Follow-up on or after 12/03/2024 for an extended physical exam or sooner with symptoms or concerns. Verbalized understanding and agreed with the treatment plan. (2) Hypertension: Code(s): I10 - Essential (primary) hypertension Category: Medical Qualifiers: Hypertension type: primary hypertension Qualified Code(s): I10 - Essential (primary) hypertension Plan: Resting blood pressure is 112/70, within goal of less than 130/80. Continue current treatment regimen. Will continue to monitor. Verbalized understanding and agreed with treatment plan. (3) Hypercholesterolemia: Code(s): E78.00 - Pure hypercholesterolemia, unspecified Category: Medical Plan: Recent triglycerides, total cholesterol, LDL, and HDL levels are normal, 64, 139, 80, and 47 respectively. Continue current treatment regimen. Will continue to monitor. Verbalized understanding and agreed with the plan. Orders: Orders Comprehensive [place]. Panel Fast Today Z01.818 - Encounter for other preprocedural examination Complete Blood Count Auto Diff Today Z01.818 - Encounter for other preprocedural examination
[2024-10-29 10:52] VITALS: BP 108/54; PULSE 48; RESP 14; O2SAT 98; BMI 22.7
--- OUTSIDE RECORDS SUMMARY | 2024-10-29 11:25 | XMS_ITS | Continuity of Care Document ---
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 Name Role Phone Michael RUBIN, Neris Primary Care Physician Encounter [facility] Date(s): 10/08/24 - 10/08/[address] [address]- Discharge Disposition: A-D/C Home Attending Physician: Erlin Gurrola DO Admitting Physician: Erlin Gurrola DO Referring Physician: Erlin Gurrola DO Encounter Type: Disch Daystay Allergies, Adverse Reactions, Alerts No Known Allergies Medications amiodarone 200 mg oral tablet 200 mg, 1, tablet, By Mouth, Daily, TAKE 1 TABLET BY MOUTH ONCE DAILY Start Date: 10/08/24 Status: Ordered Repeat number: 1 brimonidine 0.1% ophthalmic solution INSTILL 1 DROP INTO RIGHT EYE TWICE A DAY Start Date: 01/27/24 Status: Ordered Repeat number: 1 Metoprolol Succinate ER 25 mg oral tablet, extended release 1 tablet = 25 mg, By Mouth, Daily, # 30 tablet, 0 Refills, Maintenance, 01/27/24 7:09:00 AM EDT, ER Tablet, Partial fill upon patient request if the prescription is for a schedule II opioid drug. Start Date: 01/27/24 Status: Ordered Quantity: 30.0 Unit: tablet Repeat number: 1 rosuvastatin 10 mg oral tablet TAKE 1 TABLET BY MOUTH ONCE DAILY Start Date: 09/16/24 Status: Ordered Repeat number: 1 valsartan 40 mg oral tablet TAKE 1/2 tablet (20mg) BY MOUTH TWICE DAILY Start Date: 09/16/24 Status: Ordered Repeat number: 1 Vital Signs Most recent to oldest [Reference Range]: 1 2 3 Height 175.26 cm (10/08/24 9:44 AM) Weight 69.4 kg (10/08/24 9:44 AM) Oxygen Saturation [94-100 %] 95 % (10/08/24 5:00 PM) 94 % (10/08/24 4:00 PM) 95 % (10/08/24 3:45 PM) Pulse Rate [55-90 bpm] 50 bpm *L* (10/08/24 9:44 AM) Body Mass Index [18.5-24.99 kg/m2] 22.59 kg/m2 (10/08/24 9:44 AM) Blood Pressure [90-138/55-84 mm Hg] 109/65mm Hg (10/08/24 5:00 PM) 101/68mm Hg (10/08/24 4:00 PM) 116/74mm Hg (10/08/24 3:00 PM) Respiratory Rate [16-30 br/min] 14 br/min *L* (10/08/24 5:00 PM) 15 br/min *L* (10/08/24 4:00 PM) 12 br/min *L* (10/08/24 3:45 PM) Temperature [96.8-100.4 DegF] 97.9 DegF (10/08/24 1:00 PM) 98 DegF (10/08/24 9:44 AM) Mode of Delivery (Oxygen) Room air (10/08/24 5:00 PM) Room air (10/08/24 4:00 PM) Room air (10/08/24 3:45 PM) Blood pressure sites Arm, left (10/08/24 3:00 PM) Arm, left (10/08/24 2:45 PM) Arm, left (10/08/24 2:30 PM) Temperature Route Temporal (10/08/24 1:00 PM) Temporal (10/08/24 9:44 AM) Dry Weight 69.4 kg (10/08/24 9:44 AM) Weight Obtained Via Standing scale (10/08/24 9:44 AM) Dry Weight Obtained Via Standing scale (10/08/24 9:44 AM) Social History Social History Type Response Smoking Status Cigars or pipes saw y within last 30 days; Interested in cessation: Yes; Patient wants NRT during admission No;Smokeless tobacco user within last 30 days; Type: Cigars; Tobacco user in household: No; Tobacco use times per day: One cigar per day. ON weekends has 3 per day.; Number of years: 8; Cessation attempts: 0; entered on: 03/29/21 Sex Sex Representation Male (finding) Note * Event Display: Hemodynamic Procedure Report Authored Date: [id number] * Jose Manuel Jarquin RN: PERFORM Event Display: Discharge/Transfer Note Hospital Authored Date: [id number] Nursing Discharge Note Entered On: 10/08/2024 17:38 EST Performed On: 10/08/2024 17:38 EST by Jose Manuel Jarquin RN Nursing Discharge Note 2 Discharge Time : 10/08/2024 17:30 EST Discharge Level of Care at Discharge : Home/Care Home/Foster Care Patient Left Unit Via : Wheelchair Patient Accompanied Off Unit with : Responsible adult DC Instructions Provided & Signed by Pt : Yes Patient Understands D/C Instructions : Yes Verbalized Understanding of D/C Plan By : Patient Patient Instructions Discharge Signed : Yes Did Pt have Specialty Bed or Wound Vac : No Jose Manuel Jarquin RN - 10/08/2024 17:38 EST * Mirian Ventura RN: PERFORM Event Display: Patient Education/Instruction Authored Date: [id number] Surgery Adult Discharge Instructions [place] [id number] Name: CLAUDIO VELASQUEZ : 1955?? Visit: 10/08/2024 08:36?? Current Date: 10/08/2024 16:20 ?? Account: [id number]?? Surgery Discharge Instructions We would like to thank you for allowing us to assist you with your healthcare needs. The following includes patient education materials and information regarding your injury/illness. Our entire staffstrives to provide an excellent experience for our patients and their families. PLEASE ENSURE YOU FOLLOW-UP PER THE INSTRUCTIONS BELOW! ?? YOUR OPINION IS IMPORTANT TO US! Please complete the survey you may receive by mail or email. Your feedback will be used to make improvements to the healthcare experiences of our patients and their families. Surveys are administered by [employer] ?? If further treatment with your primary care physician or another doctor is recommended, it is important for you to keep the appointment. Call your primary care physician or return to the Emergency Department immediately if your condition worsens, fails to improve, or new symptoms develop. If you need to find a doctor, you can call [facility] Link for a referral at [phone] or toll free at [phone]) or log in to [email or web address].. ?? [facility], in keeping with [facility] guidance, no longer requires face masks for staff, patientsor visitors in most situations. Similiar to time spent indoors at other locations, there is the chance that you were exposed to repiratory viruses during your time with us (such as flu or COVID-19). If you develop symptoms concerning for a viral respiratory infection, please seek testing (and treatment if indicated) from your medical provider or home test kit. ?? You can view and manage your care through the patient portal or by using a health care ni of your choosing. [employer] is a website that allows you to securely view your medical information including your hospital discharge summary, office visit summaries, medications and follow-up visits. You can also request appointments, renew medications, and request access to your medical information using a health care ni of your choosing, or just ask a question. You are entitled to know the individuals who participated in your treatment. This information is available within your medical record and will be provided upon your request. You can enroll at [email or web address] or register d uring your next office visit. You have been discharged from [facility], Patient Care Unit: CARE??. If you have any questions regarding these instructions after you leave, please call us and we will be happy to assist you. [facility] Your Care Team Attending Physician Erlin Gurrola DO?? Discharging Providers Wilman Sanon MD Reason for Admission NONISCHM EPS ABLATION PVC PRIM ICD IMPL DDD HV2 83 Primary Care Provider Neris Rodriguez MD? Advance Directive Health Care Proxy on File Yes - Health Care Proxy What to do next Instructions From Your Doctor ?? Orders?? discharge after post procedure rest order complete, patient has ambulated and groin incision(s) arestable 30 mins post ambulation, ??10/08/24 12:57:00 EST?? Scheduled Follow-Up Appointments 2024 10:30 AM EST ?? Where: [facility] [address] [place] [address]- Status: Pending You Need to Schedule the Following Appointments Follow Up with??Erlin Gurrola Where: [address] [place] [address]- Business (1) Follow Up with??Neris Rodriguez When:??In 0 days Discharge Medications CLAUDIO VELASQUEZ :1955 Visit Date:10/08/2024 Medications: Please continue your medications until treatment is completed or stopped by your provider. You may resume your daily prescription medications. Discuss any questions related to medications with your provider. What How Much When Instructions Next Dose Continue to hold amiODARONE (amiodarone 200 mg oral tablet) 1 tab(s) Oral Daily ?? Continue to hold medication until Dr. Hinkle's office instructs you to restart Unchanged Brimonidine Ophthalmic (brimonidine 0.1% ophthalmic solution) INSTILL 1 DROP INTO RIGHT EYE TWICE A DAY ?? Unchanged Metoprolol (Metoprolol Succinate ER 25 mg oral tablet, extended release) 1 tab(s) Oral Daily Unchanged Rosuvastatin (rosuvastatin 10 mg oral tablet) TAKE 1 TABLET BY MOUTH ONCE DAILY ?? Unchanged Valsartan (valsartan 40 mg oral tablet) TAKE 1/ 2 tablet (20mg) BY MOUTH TWICE DAILY ?? Allergies (NKA means No Known Allergies) NKA Education Materials Below is the list of Educational Leaflet Providered with your Discharge Instructions. [employer] Patient Education - Understanding Premature Ventricular Contractions (PVCs)?? [employer] Patient Education - M-Groin I Discharge Instructions?? [employer] Patient Education - Discharge Instructions for Catheter Ablation?? [employer] Patient Education - Anesthesia: General Anesthesia?? Valuables and Belongings I fully understand and agree that [facility] accepts no responsibility for all my personal property including clothing, toilet articles, radios, jewelry, dentures, hearing aids, rings, money, or any other property that is in my possession or is brought to me after admission. I understand certain valuables may be placed in a hospital safe for a short period of time. I understand that the hospital is not liable for loss or damage due to accident, fire, or other natural occurrence while said property is in the safe. I accept full responsibility for any personal property that I keep with me, and will not hold the hospital responsible in case of loss or disappearance. I acknowledge that i have been encouraged to send valuables and belongings home. ?? Review of Valuable and Belonging List: With patient Date for Pt to Sign Valuables/Belongings: 10/08/24 10:22:00 ?? Valuables & Belongings ?? Clothes Electronic devices Jewelry Monetary Items Personal devices Miscellaneous Medications (Valuables) Valuables at Bedside Jacket, Pants, Shirt, Shoes, Undergarments ? Wallet ?? Other: [facility] ?? Valuables Sent Home ? Valuables Sent to Security ? Valuables Sent to Locker ? Other Discharge Information ? Pulmonary Rehab Status?? Pulmonary Rehab Discharge Status?? Respiratory Rate:??15 br/min??Low ? Common Emergency Awareness Tips IS IT A STROKE? Act FAST and Check for these signs: FACE Does the face look uneven? ARM Does one arm drift down? SPEECH Does their speech sound strange? TIME Call at any sign of stroke ?? Heart Attack Signs Chest discomfort: Most heart attacks involve discomfort in the center of the chest and lasts more than a few minutes, or goes away and comes back. It can feel like uncomfortable pressure, squeezing, fullness or pain. Discomfort in upper body: Symptoms can include pain or discomfort in one or both arms, back, neck, jaw or stomach. Shortness of breath: With or without discomfort. Other signs: Breaking out in a cold sweat, nausea, or lightheaded. Remember, MINUTES DO MATTER. If you experience any of these heart attack warning signs, call to get immediate medical attention! ?? Smoking can increase your chances of developing chronic health problems and can cause harmful effects to other family members in your house. If you smoke, you are strongly encouraged to quit. Please call [facility] Link at [phone] or [phone] ([phone]) or log in to [email or web address] for referrals to smoking cessation programs. ?? The National Suicide Prevention Hotline is available 07/04 if you or someone you know needs to find a reason to keep living. By calling 1-029-416-[facility] (0776) you'll be connected to a skilled, trained counselor at a crisis center in your area. SURGERY DISCHARGE INSTRUCTIONS SIGNATURE CLAUDIO MARIEE Location:[facility] Registration Date and Time:10/08/2024 08:36 EST Primary Care Physician: Neris Rodriguez MD, Attending Physician: Erlin Gurrola DO, I CLAUDIO VELASQUEZ, have received the above patient education materials/instructions and have verbalized understanding. If ambulance or transport services are being used I further acknowledge being given a choice of service. ?? If you need to contact me, please call me at this number: . Patient/Advanced Practice Provider Name:CLAUDIO VELASQUEZ Patient/Advanced Practice Provider Signature: Relationship to Patient: Witness Name/Signature: Date: * Mirian Ventura RN: PERFORM, SIGN, VERIFY Event Display: Patient Education Handout Authored Date: * Mirian Ventura RN: PERFORM Event Display: Patient Education Leaflets Authored Date: Understanding Premature Ventricular Contractions (PVCs) ?? 23100 Understanding Premature Ventricular Contractions (PVCs) Premature ventricular contractions (PVCs) are a type of abnormal heartbeat (arrhythmia). They are commonly found in people of all ages.? How PVCs happen Your heart has 4 chambers: 2 upper atria and 2 lower ventricles. Normally, a special group of pacemaker cells begins the signal to start your heartbeat. These cells are in the sinoatrial (SA) node in the right atrium. The signal quickly travels down your heart???s conducting system. It moves to the left and right ventricle. As it travels, the signal sets off nearby parts of your heart to contract. This allows your heart to squeeze in a coordinated way. During a PVC, the signal to start your heartbeat instead comes from one of the ventricles. This signal is premature, meaning it happens before the SA node has had a chance to fire. The signal spreadsthrough the rest of your heart, causing a heartbeat. If this happens very soon after the previous heartbeat, your heart will push out very little blood. This causes a feeling of a pause between beats. If it happens a little later, your heart pushes out an almost normal amount of blood. This leads to a feeling of an extra heartbeat. So the heart has a ???premature?? heartbeat in between normal heartbeats. ?? What causes PVCs? Most often, PVCs are harmless . But certain things can help set off a premature signal in the ventricles. These include: ??? Advancing age ??? Reduced blood flow to your heart (such as coronary artery disease) ??? Scarring after a heart attack ??? Electrolyte problems, such as low sodium or potassium levels ??? Caffeine ??? Alcohol ??? Nicotine ??? Illegal drugs, such as cocaine and methamphetamine ??? Increased adrenaline, such as with anxiety ??? Certain medicines, such as digoxin ??? Endocrine (hormone) problems, such as hyperthyroid (too much thyroid hormone) Many heart conditions raise the risk for PVCs. These include: ??? High blood pressure ??? Heart attack ??? Coronary heart disease ??? Dilated cardiomyopathy ??? Hypertrophic cardiomyopathy ??? Congenital heart disease ??? Heart failure They often happen in people without any heart disease. But PVCs are somewhat more common in people with some kind of heart disease.? What are the symptoms of PVCs? Most people with occasional PVCs don???t have symptoms. The more PVCs you have, the more likely youare to feel them. When symptoms do happen, they are usually minor. Symptoms may include: ??? An awareness of the heart beating ??? A fluttering or flip-flop feeling in your chest ??? Feeling of a skipped or extra heartbeat ??? Dizziness and near-fainting ??? A pulsing sensation in the neck PVCs may cause more severe symptoms if you have another heart problem, such as heart failure.? How are PVCs diagnosed? Your healthcare provider will ask about your health history and give you a physical exam. An electrocardiogram (ECG) is the main test for diagnosis. This test records the electrical activity of your heart. During an ECG, small pads (electrodes) are placed on your chest, arms, and legs. Wires connect the pads to a machine, which records your heart???s electrical signals. This test allows your provider to look at the signal of your heartbeat for a brief time. Any PVCs that occur during this time will show up on the ECG. In some cases, your healthcare provider might advise at home or portable ECG monitoring over a few days or even weeks. This can help to diagnose PVCs that don???t happen often. There are several types of heart monitors: ??? Holter monitor.??This monitor is a small box with wires connected to pads on your chest. You wear it for 1 to 2 days. It provides a constant recording of heart activity. After the test is done, your healthcare provider analyzes the recording. ??? Event monitors.??These monitors are also small boxes with wires connected to pads on your chest. They are generally worn for 3 to 4 weeks. But they can be used for several months. One kind is a memory loop recorder. This monitor records constantly.But it stores the recording only when you press a button. The other kind is a credit card-sized recorder. This monitor is turned on only during an episode. With both types, you send the recordings ofsymptoms to your healthcare provider over the phone. ??? Mobile cardiac outpatient telemetry. This type of event monitor is usually used for up to 30 days. It uses cell phone technology to send data in real time to a monitoring center where trained technicians can review it. Or it can contact a healthcare provider for a life-threatening problem. ??? Patch monitor. This is a small self-contained ad hesive patch that can record your heart rhythm for up to 2 weeks. ??? Insertable (or implantable) refrigeration technician. This small device is implanted under the skin. It can be used to keep track of the heart rhythm for several years. ??? Commercially available wearable heart rhythm monitors . These include smartwatches or wristbands. They may be useful for finding abnormal heart rhythms. These may be the only tests your healthcare provider will need. You may need more testing if you have PVCs often, or many in a row. Your provider may look at other causes, including possible heart problems. These tests might include: ??? Echocardiography. This test uses ultrasound to evaluate your heart???s structure and function. ??? Cardiac stress testing. This test checks how your heart responds to exercise and to evaluate heart artery blood flow. ??? Cardiac CT or MRI. These imaging tests make detailed pictures of the heart. ??? Blood tests.??This is done to check electrolyte and thyroid levels. ?? Last Reviewed Date: 2022 ?? 3006-7477 [employer]. All rights reserved. This information is not intended as a substitute for professional medical care. Always follow your healthcare professional's instructions. ?? * Mirian Ventura RN: PERFORM Event Display: Patient Education Leaflets Authored Date: [id number] M-Groin I Discharge Instructions ?? 179 Groin Discharge Instructions No heavy lifting over 10 pounds (for example: gallon of milk) 1 week following the procedure; gradually increase normal activity over the next 5 days. Avoid straining/pushing when moving bowels You may feel like resting more after your procedure. Slowly start to do more each day. Rest when you feel it is needed. Make sure to look at your procedure site every day until it is completely healed. You may see bruising at the puncture site and that is common after the procedure. You may shower the day after your procedure. Remove the band aid before showering. Wash the area gently with soap and water. Leave open to air. Do not take tub baths, hot tubs, soaking of the puncture site or swimming for 1 week. Do not put any creams, powders or lotions on your puncture site You may resume sexual activity the day after your procedure; avoid bending the hip on ?? the side of the groin puncture excessively and any strenuous positions for 1 week. Call your doctor if your procedure site develops any of the following: ??? New onset severe pain ??? New onset lump or swelling ??? Bleeding that does not stop with lightpressure ? * Mirian Ventura RN: PERFORM Event Display: Patient Education Leaflets Authored Date: Discharge Instructions for Catheter Ablation ?? [id number] Discharge Instructions for Catheter Ablation You have had a procedure called catheter ablation. It was??used to treat an abnormal heartbeat (arrhythmia). This procedure destroyed (ablated) the cells in your heart that were causing your heart rhythm problem. During the procedure, the health care provider put a thin,??flexible??wire (catheter)??into a blood vessel in your groin. You may have also had a catheter placed through a vein in your neck. The provider then threaded the catheter to your heart to find the area of concern and treat theproblem. Home care Here are recommendations for care at home: ??? Make arrangements for someone to drive you home after the procedure. You will be given medicine to relax you (sedation). Your health care provider may tell you not to??drive for 24 to 48 hours after the procedure. ??? Expect to be able to go back to your normal daily activities in the next 1 to 2 days. These??include walking, climbing stairs, and doing light supervisor microwave. ??? Don't do any heavy physical activity or excessive bending at the waist for several days after the procedure. This will allow your body to heal. ??? Don't lift heavy objects until your provider tells you to. Talk with your provider about any specific limits you need to follow. ??? Ask your provider when you can??return to work. ??? Check the area where the catheter was inserted for signs of infection every day for a week. Keep the site dry as instructed. Signs of infection include redness, swelling, drainage, or warmth at the incision site.??Take your temperature if you feel you may have a fever. Let your provider know if you develop any symptoms of infection orsee any discharge from your site. ??? Take your medicines exactly as directed. Don???t skip doses. You may need to make some changes in your medicines because of the ablation procedure. Be sure to goover your medicine instructions with your provider before you are discharged. ??? Learn to take your own pulse. Keep a record of your results. Ask your provider which readings mean that you need medical attention. ?? Follow-up care Make a follow-up appointment as directed by your health care provider. Your provider will check howthe catheter site is healing. In many cases, 1 ablation is enough to treat an arrhythmia. But sometimes the problem comes back or another problem is found. If this happens, you may need a second procedure. ?? When to call your doctor Contact your health care provider right away if you have: ??? Redness, pain, swelling, bleeding, or drainage from the area where the catheter was put in. ???A temperature of 100.4??F (38??C) or higher, or as directed by your provider. ??? Sudden coldness, pain, or numbness in the leg or arm where the catheter was put in. ??? Nausea or vomiting. ??? Difficulty swallowing, excessive pain when swallowing, or vomiting blood. ??? A heart rate that stays high. Note: Ask your provider what to expect about your heartbeat. Sometimes the irregularity goes away right after the procedure. Other times it may take longer to go away. ?? Call 911 Call 911 right away if you have: ??? Bleeding from the puncture site that does not slow down when you press on it firmly. ??? Chest pain, shortness of breath, or dizziness. ??? Sudden numbness or weakness, especially on one side of the body, or difficulty speaking. ??? A sudden loss of consciousness/responsiveness. ?? Last Reviewed Date: 2024 ?? [id number] [employer]. All rights reserved. This information is not intended as a substitute for professional medical care. Always follow your healthcare professional's instructions. ?? EKG study * Event Display: ECG 12-Lead Authored Date: Please click on pdf link to open report * Event Display: ECG 12-Lead Authored Date: Ventricular Rate: 50 BPM Atrial Rate: 50 BPM P-R Interval: 192 ms QRS Duration: 108 ms Q-T Interval: 504 ms QTC Calculation(Bazett): 459 ms P Liberty: 59 degrees R Liberty: -18 degrees T Liberty: 39 degrees Sinus bradycardia Voltage criteria for left ventricular hypertrophy Nonspecific T wave abnormality Abnormal ECG When compared with ECG of 27-Jan-2024 07:21, Nonspecific T wave abnormality has replaced inverted T waves in Inferior leads Nonspecific T wave abnormality no longer evident in Anterior leads Confirmed by Brandon Fernandez ([id number]) on 10/08/2024 9:21:01 AM [place]: Brandon Fernandez Heart * Event Display: Echocardiogram - Complete Authored Date: Transthoracic Echocardiography Report (TTE) Patient Demographics Patient Name CLAUDIO VELASQUEZ Date of Study 10/08/2024 Corporate Gender Male Facility Race Ethnicity Date of 1955 Height: 69 inches Age 69 year(s) Weight: 153 pounds Accession Number [id number] BSA: 1.84 m2 Room Number [id number] BMI: 22.59 kg/m2 Referring Physician Izabela Macdonald Interpreting Physician Manuel Taveras Applications Support Lead Cathleen Dean [facility] Indications Arrhythmia. Additional Indications:Pre- ablation Study Data Type of Study TTE procedure:Echo Complete-Doppler, Colorflow, M-Mode, 3D Rendering with Post Processing, Strain. Study Date10/08/2024 Start Time: 09:29 AM Study Location: [facility] Adult Echo Study Status: Bedside Patient Status: Routine Technical Quality: Adequate Blood Pressure:137/91 mmHg EKG: Sinus with ectopy HR: 52 bpm Allergies - No known allergies. 2D Measurements LV Diastolic Dimension: 5.69 cm LV Systolic Dimension: 4.23 cm LV Septum Diastolic: 1.13 cm LV PW Diastolic: 1.16 cm AO Root Dimension: 4.25 cm LA Dimension: 4.3 cm LA ESV (BP):82.78 ml LVOT Stroke Volume: 107.36 ml LA ESV Index: 45 ml/m2 Stroke Volume Index58.35 ml/m2 LVOT: 2.98 cm Cardiac Index:3.03 l/min/m2 Ascending Aorta:3.95 cm Doppler Measurements AV Peak Velocity: 118 cm/s MV Peak E-Wave: 49.3 cm/s AV Peak Gradient: 5.57 mmHg MV Peak A-Wave: 64.7 cm/s MV E/A Ratio: 0.76 LVOT Peak Velocity: 63.7 cm/s LVOT VTI15.4 cm AV Area (2D): 3.38 cm2 MV Deceleration Time: 324 msec TR Velocity:252 cm/s TR Gradient:25.4 mmHg PV Peak Velocity: 97.7 cm/s E' Septal Velocity: 4.68 cm/s PV Peak Gradient: 3.82 mmHg E' Lateral Velocity: 6.09 cm/s E/Med E':10.74600 E/Lat E':[id number] Cardiac Anatomy Left Ventricle/Interventricular Septum The apical views are foreshortened. The left ventricular size is normal. Left ventricular wall thickness is normal. The LV systolic function is normal . The left ventricular ejection fraction is 56 % by biplane Gamino's method. There are no definite regional wall motion abnormalities. There is paradoxical diastolic motion of the inferior wall ( pseudo-dyskinesis ) consistent with increased intra-abdominal pressure or hiatal hernia. There is no doppler evidence of increased filling pressures. The global longitudinal strain (GLS) from 2D analysis is -16.2 % (normal absolute value > 18%). Left Atrium/Interatrial Septum The left atrium is moderately dilated. Aortic Valve The aortic valve is trileaflet . The aortic valve appears mildly to moderately calcified. The aortic valve leaflet opening is mildly decreased . There is no significant aortic stenosis. Mitral Valve The mitral valve appears mildly thickened. There is mild prolapse of both leaflets of the mitral valve . There is mild to moderate mitral regurgitation. Aorta There is mild dilation of the aortic root and ascending aorta . Right Ventricle The right ventricle is normal in size and function. Right Atrium The right atrium is normal in size. Pulmonic Valve The pulmonic valve appears normal. Tricuspid Valve The tricuspid valve is grossly normal. There is mild tricuspid valve regurgitation. Pumonary Artery The pulmonary artery systolic pressure estimation is within normal limits. Venous Structures The inferior vena cava appears normal. Pericardium/Extracardiac There is no significant pericardial effusion. Summary The apical views are foreshortened. The left ventricular size is normal. Left ventricular wall thickness is normal. The LV systolic function is normal . The left ventricular ejection fraction is 56 % by biplane Gamino's method. There are no definite regional wall motion abnormalities. There is paradoxical diastolic motion of the inferior wall ( pseudo-dyskinesis ) consistent with increased intra-abdominal pressure or hiatal hernia. There is no doppler evidence of increased filling pressures. The global longitudinal strain (GLS) from 2D analysis is -16.2 % (normal absolute value > 18%). The left atrium is moderately dilated. The aortic valve is trileaflet . The aortic valve appears mildly to moderately calcified. The aortic valve leaflet opening is mildly decreased . There is no significant aortic stenosis. The mitral valve appears mildly thickened. There is mild prolapse of both leaflets of the mitral valve . There is mild to moderate mitral regurgitation. There is mild dilation of the aortic root and ascending aorta . The right ventricle is normal in size and function. Comparison No prior study available for comparison. Signature * Event Display: Echocardiogram - Complete Authored Date: [id number] * Event Display: Echocardiogram - Complete Authored Date: [id number] Patient Care team information Care Team Personnel Name: Aydee Thompson RN Position: [facility] RN Member Role: Primary Care Nurse Name: Neris Rodriguez MD Position: [facility] Physician - Pediatrics Member Role: PCP Address: [address] [place] [id number] Telecom: Name: Rianna Johnson Position: [facility] Outreach Member Role: Lifetime Consulting Physician Name: Tavo Rondon Position: [facility] Outreach Member Role: Lifetime Consulting Physician Name: Alysia Flores RN Position: [facility] RN Member Role: Primary Care Nurse Name: Padmini Escudero RN Position: [facility] RN Member Role: Primary Care Nurse Care Team Related Persons Name: ROC VELASQUEZ Insurance Providers Guarantor name: CLAUDIO [facility] Plan Information #: 2 Payer: [facility] [employer] ADV Member Number: [id number] Policy Number: NA Group Number: NA Health Plan Information #: 1 Payer: [facility] MCR REPLC Member Number: [id number] Policy Number: NA Group Number: [id number]
--- OUTSIDE RECORDS SUMMARY | 2024-10-29 11:25 | XMS_ITS | Encounter Summary ---
Author Organization [employer] Address [address] [place] [address] 7 [place] [address] Care Team Providers Care Cutting Table Operator First Name Role Phone Sakina Correa Primary Care Provider Un available PcpHannahssrito Primary Care Provider U navailable Encounter Details Date Type Department Care Team (Late st Contact Info) Description 08/26/2022 Orders Only Hannah [facility] [address] [place] [address] Gissel Reardon [place] Social History Tobacco Use Types Packs/Day Years Used Date Smoking Tobacco: Never Assessed Depression Answer Date Recorded Patient Health Questionnaire-2 Score 0 08/29/2022 Sex and Gender Information Value Date Recorded Sex Assigned at Male 10/11/2022 2:14 PM EST Legal Sex Male 8:32 PM EDT Gender Identity Male 10/11/2022 2:14 PM EST Sexual Orientation Choose not to disclose 2022 2:14 PM EST documented as of this encounter Plan of Treatment Not on file documented as of this encounter Visit Diagnoses Not on filedocumented in this encounter Care Teams Cutting Table Operator First Relationship Specialty Start Date End Date Sakina Correa FNP PCP - General Family Medicine 08/20/22 12/25/22 Hannah Sow PCP - General Family Medicine 01/13/23 documented as of this encounter
--- OUTSIDE RECORDS SUMMARY | 2024-10-29 11:25 | XMS_ITS | Clinical Summary ---
Author Organization [address] [facility] Address [address] [place] [address] Phone Care Team Providers Care Tube Bending Machine Operator Name Role Phone Neris Rodriguez MD Primary Care Provider [phone] Social History Tobacco Use Types Packs/Day Years Used Date Smoking Tobacco: Never Assessed Sex and Gender Information Value Date Recorded Sex Assigned at Not on file Legal Sex Male 12:54 PM EST Gender Identity Not on file Sexual Orientation Not on file Plan of Treatment Upcoming Encounters Date Type Department Care Team (Late st Contact Info) Description 11/04/2024 7:30 AM EST Ancillary Procedure [facility] [address] [facility] [address] [place] [address] Health Maintenance Due Date Last Done Comments DTaP,Tdap,and Td Vaccines (1 - Tdap) 1975 Pneumococcal Vaccine: 50+ Ye ars (1 of 1 - PCV) 2006 Zoster Vaccines (1 of 2) 2006 COVID-19 Vaccine ( - 2023-2 5 season) 2024 Influenza Vaccine (#1) 2024 Abdominal Aortic Aneurysm (A AA) Screen 10/29/2024 Cholesterol Screening (Lipid Panel) 10/29/2024 Colorectal Cancer Screening: Colonoscopy 10/29/2024 Depression Screening 10/29/2024 Falls Risk Assessment 10/29/2024 Hepatitis C Screening 10/29/2024 Medicare Annual Wellness Visit 10/29/2024 Social Influencers of Health Screening 10/29/2024 RSV Immunization Patients 60 + Years Old (1 - 1-dose 75+ series) 2031 HIB Vaccines Aged Out No longer eligi ble based on patient's age to complete this topic HPV Vaccines Aged Out No longer eligi ble based on patient's age to complete this topic Hepatitis A Vaccines Aged Out No long er eligible based on patient's age to complete this topic Hepatitis B Vaccines Aged Out No long er eligible based on patient's age to complete this topic IPV Vaccines Aged Out No longer eligi ble based on patient's age to complete this topic MMR Vaccines Aged Out No longer eligi ble based on patient's age to complete this topic Meningococcal ACWY Vaccine Aged Out N o longer eligible based on patient's age to complete this topic Meningococcal B Vacine Aged Out No lo nger eligible based on patient's age to complete this topic RSV Immunization Patients Un valdo 20 months Aged Out No longer eligible b ased on patient's age to complete this topic Varicella Vaccines Aged Out No longer eligible based on patient's age to complete this topic Insurance [employer] MEDICARE Care Teams Tube Bending Machine Operator Relationship Specialty Start Date End Date Neris Rodriguez MD [address] [place] [address] PCP - General Internal Medicine 10/28/24
--- OUTSIDE RECORDS SUMMARY | 2024-10-29 11:25 | XMS_ITS | Clinical Summary ---
Author Organization [employer] Address [address] [place] [address] 7t [place] [address] Care Team Providers Care Hand Molder Meat Name Role Phone PcpHannah Unassigned Primary Care Provider U navailable Allergies Active Allergy Reactions Criticality Noted Date Comments Atorvastatin Palpitations Low 08/26/2022 Medications simvastatin (Zocor) 10 MG tablet Take 10 mg by mouth in the evening. 07/09/20 Active lisinopril 20 MG tablet Take 20 mg by mouth in the morning. 07/09/20 Active ofloxacin (Ocuflox) 0.3 % ophthalmic solution INSTILL ONE DROP INTO THE RIGHT EYE 4 TIMES A DAY STARTING THREE DAYS PRIOR TO SURGERY AND CONTINUING AFTER.] 08/20/20 22 Active prednisoLONE acetate (Pred-Forte) 1 % ophthalmic suspension 22 Active ezetimibe (Zetia) 10 MG tabletIndications:Ather osclerosis of aorta (CMS/HCC),Pure hypercholesterolemia Take 1 tablet (10 mg) by mouth in the morning. 30 tablet 3 08/29/20 Active Active Problems Problem Noted Date Diagnosed Date Prostate cancer 08/26/2022 Pain in wrist 08/26/2022 Muscle spasm of back 08/26/2022 Hypermagnesemia 08/26/2022 Pure hypercholesterolemia 08/26/2022 Essential hypertension 08/26/2022 Dental neglect 08/26/2022 Cigar smoker 08/26/2022 Atherosclerosis of aorta 08/26/2022 Acute right-sided thoracic back pain 08/26/2022 Acute right-sided low back pain without sciatica 08/26/2022 Resolved Problems Problem Noted Date Diagnosed Date Resolved Date Chicken pox 08/20/1958 08/26/2022 Immunizations Name Administration Dates Next Due INFLUENZA INJECTABLE QUADRIV ALANT CCIIV4 MDCK Multi-dose vial 06/21/2019 Influenza injectable quadrivalent preservative f ree 07/30/2022 Influenza, IIV3, injectable 08/06/2021, 0 Moderna Covid-19 Vaccine 12+ 02/01/2021,01/05/20 21 Novel [id number], all formulations 2009 TD (adult), 2 Lf tetanus tox oid, preservative free, adsorbed 07/06/2020,03/02/2001 Tdap 02/22/2010 Social History Tobacco Use Types Packs/Day Years Used Date Smoking Tobacco: Every Day Cigars Smokeless Tobacco: Never Tobacco Cessation:Ready to Q uit: Not Asked; Counseling Given: Not Answered Alcohol Use Standard Drinks/Week Comments Not Currently 0 (1 standard drink = 0.6 oz pur e alcohol) Housing Stability Answer Date Recorded What is your housing situation today? I have sanjay drake 07/26/[address] you li ve. Do you have problems with any of the following? None of the above 07/26/2023 Food Insecurity Answer Date Recorded Within the past 12 months, y ou worried that your food would run out before you got money to buy more: Never True 07/26/2023 Within the past 12 months,th e food you bought just didn't last and you didn't have enough money to get more: Never True 07/2023 Transportation Answer Date Recorded In the past 12 months, has l ack of transportation kept you from medical appts, meetings, work or from getting things needed for daily living? No 07/26/2023 Utilities Answer Date Recorded In the past 12 months, has t he [employer], gas, oil or water company threatened to shut off services in your home? No 07/26/2023 Depression Answer Date Recorded Patient Health Questionnaire-2 Score 0 08/29/2022 Sex and Gender Information Value Date Recorded Sex Assigned at Male 10/11/2022 2:14 PM EST Legal Sex Male 8:32 PM EDT Gender Identity Male 10/11/2022 2:14 PM EST Sexual Orientation Choose not to disclose 2022 2:14 PM EST Last Filed Vital Signs Vital Sign Reading Time Taken Comments Blood Pressure 126/78 07/30/2022 8:30 AM EST Pulse 58 07/30/2022 8:30 AM EST Temperature - - Respiratory Rate - - Oxygen Saturation 98% 07/30/2022 8:30 AM EST Inhaled Oxygen Concentration - - Weight 65.8 kg (145 lb) 07/30/2022 8:30 AM EST Height 173.4 cm (5' 8.25 ) 07/30/2022 8:30 AM ES T Body Mass Index 21.89 07/30/2022 8:30 AM EST Plan of Treatment Health Maintenance Due Date Last Done Comments CT Colonography 1955 FIT DNA/Cologuard 1955 FIT 1955 FOBT 1955 Sigmoidoscopy 1955 Alcohol/Substance Use Screening 1968 Hepatitis C Screening 1974 Pneumococcal Vaccine: 50+ Years (1 of 2 - PCV) 1975 Zoster Vaccines (1 of 2) 2006 Depression Screening 08/29/2023 08/29/2022, 08/29/20 SDOH Screening 08/29/2023 08/29/2022 Dental X-Ray: Bitewings 02/16/2024 02/14/2023 COVID-19 Vaccine ( season) 2024 02/01/2021, 01/04/2021 Influenza Vaccine (#1) 2024 , 08/06/2021, 07/06/2020, Additional history exists Dental Oral Exam 05/20/2024 11/17/2023, 02/14/2023 Dental Prophylaxis 05/20/2024 11/17/2023, 04/28/2023 Tobacco Screening 11/16/2024 11/17/2023 Colonoscopy 02/06/2026 02/07/2016, 05/05/2006 Colorectal Cancer Screening 02/06/2026 Dental X-Ray: Full Mouth 02/15/2026 02/14/2023 Lipid Panel 03/28/2027 03/28/2022, 01/13, 01/05/2021 DTaP/Tdap/Td Vaccines (3 - Td or Tdap) 07/06/2030 07/06/2020, 02/22/2010, 03/02/2001 RSV Patients and Patients Aged 60 years or older (1 - 1-dose 75+ series) 2031 HIB [...] patient's age to complete this topic Meningococcal Vaccine Aged Out No hector sofia eligible based on patient's age to complete this topic RSV under 20 months Aged Out No longe r eligible based on patient's age to complete this topic Rotavirus Vaccines Aged Out No longer eligible based on patient's age to complete this topic Procedures Procedure Name Priority Date/Time Associated Diagnosis Comments Full PROPHYLAXIS - ADULT Routine 11/17/2023 12:00 PM EST PERIODIC ORAL EVALUATION - ESTABLISHED PATIENT Routine 11/17/2023 12:00 PM EST INTRAORAL - COMPLETE SERIES OF RADIOGRAPHIC IMAGES Routine 02/14/2023 7:30 AM EDT LIPID PANEL, STANDARD Routine 03/28/2022 6:14 AM EDT COLONOSCOPY Routine 02/07/2016 9:27 AM EDT from Last 3 Months or Most Recently Relevant to Health Maintenance Results * -Lipid Panel (03/28/2022 6:14 AM EDT) LDL CHOLESTEROL, CALCULATED 84 (0-130) MG/DL [facility] CHOLESTEROL, TOTAL 155 (<200) MG/DL [facility] HDL CHOL 61 (>39) MG/DL [facility] NON HDL CHOLESTEROL (CALC) 94 (<160) MG/DL [facility] TRIGLYCERIDE 52 (<150) MG/DL [facility] 03/28/2022 6:14 AM EDT Sakina Correa SALES PROJECT MANAGER LAB BLOOD ORDERABLES Laly cameron Result [facility] [address] * -Colonoscopy (02/07/2016 9:27 AM EDT) Anatomical Region Laterality Modality Endoscopy 02/07/2016 9:27 AM EDT Narrative 02/07/2016 9:27 AM EDT Refer to Fovea for result details Legacy Procedure: -Colonoscopy Procedure Note Provider, MD Rickey - 12/07/2022 Refer to [facility]ovea for result details Legacy Procedure: -Colonoscopy Neris Rodriguez MD ENDOSCOPY PROCEDURE ORDERABLES F inal Result from Last 3 Months or Most Recently Relevant to Health Maintenance Insurance [facility] [employer] MEDICARE GENERIC DENTAL Care Teams Hand Molder Meat Relationship Specialty Start Date End Date PcpHannah Unassigned PCP - General Family Medicine 01/13/23
[2024-10-29 11:28] VITALS: BP 112/70; PULSE 60; TEMP 36.7
== END 2024-10-29 11:41 | disposition home or self-care (01) ==
PROVIDERS: PCP Nurse Practitioner Family; Visit Provider Nurse Practitioner Family
DX: Z01.818 Encounter for other preprocedural examination (principal); I10 Essential (primary) hypertension; E78.00 Pure hypercholesterolemia, unspecified

== ENCOUNTER → 2024-10-29 10:38 | Outpatient (BNVA) | payer MEDICARE, SELFPAY | PROVIDERS: PCP Nurse Practitioner Family; Visit Provider Nurse Practitioner Family | DX: Z01.818 Encounter for other preprocedural examination (principal); I10 Essential (primary) hypertension; E78.00 Pure hypercholesterolemia, unspecified | CPT/HCPCS: 99212 ==

== ENCOUNTER 2024-11-01 07:50 | Outpatient (REF) | payer MEDICARE, SELFPAY ==
--- OUTSIDE RECORDS SUMMARY | 2024-11-01 07:54 | XMS_ITS | Clinical Summary ---
Author Organization [employer] Address [address] [place] [address] 7t [place] [address] Care Team Providers Care Service Liaison Representative Name Role Phone PcpHannah Unassigned Primary Care [...] Moderna Covid-19 Vaccine 12+ 02/01/2021,01/05/20 21 Novel [id number], all formulations 2009 TD (adult), 2 Lf [...] the past 12 months, has t he [employer], gas, oil or water company threatened to [...] SYSTEM 03/28/2022 6:14 AM EDT Sakina Correa JET INSPECTOR LAB BLOOD ORDERABLES Laly cameron Result [facility] [address] * -Colonoscopy (02/07/2016 9:27 AM EDT) [...] Most Recently Relevant to Health Maintenance Insurance [facility] WELLCARE MEDICARE GENERIC DENTAL Care Teams Service Liaison Representative Relationship Specialty Start Date End Date PcpHannah Unassigned PCP - General Family Medicine 01/13/23
--- OUTSIDE RECORDS SUMMARY | 2024-11-01 07:54 | XMS_ITS | Encounter Summary ---
Author Organization [employer] Address [address] [place] [address] 7 [place] [address] Care Team Providers Care Developer Evangelist Name Role Phone Sakina Correa Primary Care Provider Un available PcpHannahssrito Primary Care Provider U navailable Encounter Details Date Type Department Care Team (Late st Contact Info) Description 08/26/2022 Orders Only Hannah [facility] [address] [place] [address] Gissel Reardon [place] Social History Tobacco Use [...] on filedocumented in this encounter Care Teams Developer Evangelist Relationship Specialty Start Date End Date Sakina Correa FNP PCP - General Family Medicine 08/20/22 12/25/22 Hannah Sow PCP - General Family Medicine 01/13/23 documented as of this encounter
--- OUTSIDE RECORDS SUMMARY | 2024-11-01 07:54 | XMS_ITS | Clinical Summary ---
Author Organization [address] [facility] Address [address] [place] [address] Phone Care Team Providers Care Strategic Marketing Leader Name Role Phone Neris Rodriguez MD Primary Care Provider [phone] Social History Tobacco Use Types Packs/Day Years Used Date Smoking Tobacco: Never Assessed Sex and Gender Information Value Date Recorded Sex Assigned at Not on file Legal Sex Male 12:54 PM EST Gender Identity Not on file Sexual Orientation Not on file Plan of Treatment Upcoming Encounters Date Type Department Care Team (Late st Contact Info) Description 11/04/2024 7:30 AM EST Ancillary Procedure [facility] - [facility] [address] [facility] [address] [place] [address] Health Maintenance Due Date Last [...] topic Insurance [employer] MEDICARE Care Teams Strategic Marketing Leader Relationship Specialty Start Date End Date Neris Rodriguez MD [address] [place] [address] PCP - General Internal Medicine 10/28/24
[2024-11-01 10:54] LABS: MANUAL DIFF FLAG NO
[2024-11-01 10:57] LABS: Basophils Percent Auto 0.9 % (0-2); Eosinophils Absolute Auto 0.2 X10*3/uL (0.0-0.4); Eosinophils Percent Auto 5.5 % (0-4); Hematocrit 40.9 % (42.0-52.0); Hemoglobin 13.1 g/dl (14.0-18.0); Imm Gran Abs Auto 0.01 X10*3/uL (0.00-0.03); Imm Gran Pct Auto 0.3 % (0.0-0.4); Lymphocytes Absolute Auto 0.7 X10*3/uL (1.2-4.9); Lymphocytes Percent Auto 20.6 % (20-40); Mean Corpuscular Hemoglobin 29.6 pg (27.0-33.0); Mean Corpuscular Volume 92.3 fL (80.0-98.0); Mean Platelet Volume 9.6 fL (9.4-12.4); Monocytes Absolute Auto 0.4 X10*3/uL (0.1-1.2); Monocytes Percent Auto 11.3 % (2-11); Neutrophils Absolute Auto 2.1 x10*3/uL (2.0-8.3); Neutrophils Percent Auto 61.4 % (45-73); Platelet Count 216 X10*3/uL (160-400); Red Blood Count 4.43 X10*6/uL (4.60-5.80); Red Cell Distribution Width 14.3 % (11.0-16.0); White Blood Count 3.4 X10*3/uL (4.8-10.8)
[2024-11-01 11:18] LABS: Alanine Aminotransferase 41 U/L (0-40); Albumin Level 4.2 g/dL (3.5-5.0); Alkaline Phosphatase 72 U/L (39-117); Anion Gap 10 (12-20); Aspartate Amino Transferase 40 U/L (5-37); Bilirubin Total 0.4 mg/dL (0.0-1.0); Blood Urea Nitrogen 24 mg/dL (9-16); Calcium 9.2 mg/dL (8.4-10.2); Carbon Dioxide 25 mmol/L (22-29); Chloride 111 mmol/L (96-108); Estimated Glomerular Filt Rate > 60; Glucose Fasting 81 mg/dL (60-99); Potassium 4.4 mmol/L (3.3-5.1); Sodium 142 mmol/L (135-145); Total Protein 7.2 g/dL (6.5-8.0)
== END 2024-11-01 07:51 | disposition home or self-care (01) ==
LOC: HO.WFDLDS 07:50
PROVIDERS: Visit Provider Nurse Practitioner Family
DX: Z01.818 Encounter for other preprocedural examination (principal)
CPT/HCPCS: 36415; 80053; 85025

== ENCOUNTER 2024-11-03 08:21 | Outpatient (REF) | payer MEDICARE, SELFPAY ==
--- OUTSIDE RECORDS SUMMARY | 2024-11-03 08:23 | XMS_ITS | Encounter Summary ---
Author Organization [employer] Address [address] [place] [address] 7 [place] [address] Care Team Providers Care Professor Of Theatre Name Role Phone Sakina Correa Primary Care Provider Un available PcpHannahssrito Primary Care Provider U navailable Encounter Details Date Type Department Care Team (Late st Contact Info) Description 08/26/2022 Orders Only Hannah [facility] [address] [place] [address] Gissel Reardon [place] Social History Tobacco Use [...] on filedocumented in this encounter Care Teams Professor Of Theatre Relationship Specialty Start Date End Date Sakina Correa FNP PCP - General Family Medicine 08/20/22 12/25/22 Hannah Sow PCP - General Family Medicine 01/13/23 documented as of this encounter
--- OUTSIDE RECORDS SUMMARY | 2024-11-03 08:23 | XMS_ITS | Clinical Summary ---
Author Organization [address] [facility] Address [address] [place] [address] Phone Care Team Providers Care Towel Weaver Name Role Phone Neris Rodriguez MD Primary Care Provider [phone] Social History Tobacco Use Types Packs/Day Years Used Date Smoking Tobacco: Never Assessed Sex and Gender Information Value Date Recorded Sex Assigned at Not on file Legal Sex Male 12:54 PM EST Gender Identity Not on file Sexual Orientation Not on file Plan of Treatment Upcoming Encounters Date Type Department Care Team (Late st Contact Info) Description 11/04/2024 7:30 AM EST Ancillary Procedure [facility] - [facility] [address] [facility] [address] [place] [address] Health Maintenance Due Date Last [...] topic Insurance [employer] MEDICARE Care Teams Towel Weaver Relationship Specialty Start Date End Date Neris Rodriguez MD [address] [place] [address] PCP - General Internal Medicine 10/28/24
--- OUTSIDE RECORDS SUMMARY | 2024-11-03 08:24 | XMS_ITS | Clinical Summary ---
Author Organization [employer] Address [address] [place] [address] [address]t [place] [address] Care Team Providers Care Vp Security Name Role Phone PcpHannah Unassigned Primary Care [...] Moderna Covid-19 Vaccine 12+ 02/01/2021,01/05/20 21 Novel [id number], all formulations 2009 TD (adult), 2 Lf [...] the past 12 months, has t he [employer], gas, oil or water company threatened to [...] SYSTEM 03/28/2022 6:14 AM EDT Sakina Correa CARE PROCESS MANAGER LAB BLOOD ORDERABLES Laly cameron Result [facility] [address] * -Colonoscopy (02/07/2016 9:27 AM EDT) [...] Most Recently Relevant to Health Maintenance Insurance [facility] WELLCARE MEDICARE GENERIC DENTAL Care Teams Vp Security Relationship Specialty Start Date End Date PcpHannah Unassigned PCP - General Family Medicine 01/13/23
[2024-11-03 11:57] LABS: Iron 63 mcg/dL (45-160); Percent Iron Saturation 26 % (15-50); Total Iron Binding Capacity 240 mcg/dL (228-428); Unsaturated Iron Binding 177 ug/dL
[2024-11-03 12:20] LABS: Folate 9.1 ng/mL (> or = 4.0); Vitamin B12 318 pg/mL (200-900)
== END 2024-11-03 08:22 | disposition home or self-care (01) ==
LOC: HO.WFDLDS 08:21
PROVIDERS: Visit Provider Nurse Practitioner Family
DX: D64.9 Anemia, unspecified (principal); D72.819 Decreased white blood cell count, unspecified
CPT/HCPCS: 36415; 82607; 82746; 83540

== ENCOUNTER 2024-11-17 09:38 | Outpatient (AMB) | payer OTHER, SELFPAY ==
[2024-11-17 09:41] VITALS: BP 118/62; PULSE 63; BMI 22.6
--- NOTE | 2024-11-17 09:41 | A.OFFVIS_ITS ---
Vital Signs 11/17/24 09:41 Height 5 ft 9 in Weight 153 lb BMI 22.6 BP 118/62 Blood Pressure Location Lt brachial Position Sitting Pulse 63 Pulse Source Monitor Intake Visit Reasons: Follow up post EP study Allergies No Known Allergies Allergy (Verified 10/29/24 11:20) Medication List - Last Reconciled 11/17/24 by Christiano Crisostomo MD aspirin 81 mg PO DAILY brimonidine 0.2% 1 drp ophthalmic (eye) Q12H bromfenac 0.09% drps ophthalmic (eye) rosuvastatin 10 mg PO DAILY 90 days tobramycin 0.3% drps ophthalmic (eye) valsartan 20 mg (1/2 x 40 mg) PO BID 90 days HPI Comments Details: Chong returns for follow-up regarding cardiomyopathy as well as frequent PVCs. No known coronary artery disease myocardial infarction in the past. Fairly active without any clear-cut symptoms. He has undergone comprehensive workup including echocardiogram, stress test, Holter, cardiac MRI as well as cardiac PET. Overall, he states he feels okay. Recently, underwent EP study for the PVCs but could not be ablated. Otherwise, he states he feels fine. [facility] Medical History Cardiomyopathy Prostate cancer Rectal abscess Hypertension Surgical History H/O colonoscopy S/P narciso-rectal abscess repair, follow-up exam History of cardiac cath Hx of cataract surgery H/O hernia repair Family History Father Aneurysm Social History Household Members: Spouse Both parents involved: No Caregiver staying overnight: No Housing: House Are you a primary primary care provider to a significant other at home: No Do you presently have visiting nurse or other home services: No 75 years or older and lives alone: No Alcohol intake: never Patient Tobacco Use Status: Former Tobacco user Tobacco use type: Cigar Years Smoked: Pateint quit 2 weeks ago. e-Cigarette/Vaping Use: Never Used service: No Current occupational status: retired Cognitive needs: No Hearing needs: No Vision needs: No Review of Systems Const Denies weakness ENT Denies dizziness Card Denies chest pain, Denies chest pain with activity, Denies syncope, Denies rapid heart rate, Denies pedal edema, Denies edema, Denies leg edema, Denies lightheadedness, Denies palpitations, Denies dyspnea, Denies dyspnea on exertion and Denies orthopnea Resp Denies cough, Denies dyspnea and Denies dyspnea on exertion GI Denies hematochezia and Denies change in stool character Musc Denies abnormal gait, Denies muscle cramps, Denies muscle weakness, Denies numbness, Denies radiating pain into limb and Denies tingling Neuro Denies abnormal gait, Denies dizziness, Denies syncope, Denies numbness, Denies tingling and Denies weakness Endo Denies palpitations Physical Exam Vital Signs: Last Vital Signs Pulse 63 11/17/24 09:41 BP 118/62 11/17/24 09:41 BMI result Body Mass Index 22.6 Const General: comfortable and no acute distress Orientation/consciousness: patient oriented x3 HEENT Other: Unremarkable Head: Yes normal to inspection Neck Neck: Yes normal visual inspection Chest Chest palpation & inspection: normal inspection of the chest Resp Auscultation: clear to auscultation bilaterally Cardio Palpation: normal PMI Heart sounds: S1 normal heart sound present, S2 normal heart sound present, no gallops, no murmurs and no rubs GI Palpation (GI): Soft to palpation Back/Spine/Pelvis Other: unremarkable Skin General skin exam: no rashes or lesions noted Neuro General: patient oriented x3 Extrem General: Yes normal to inspection Psych Mental Status: mental status grossly normal Office Procedures EKG Details: EKG with sinus rhythm at 63/Min; cannot exclude old anterior infarct; nonspecific ST-T changes; [place] [id number], Complete Assessment & Plan Assessment & Plan (1) Nonischemic cardiomyopathy: Code(s): I42.8 - Other cardiomyopathies Category: Medical (2) Atherosclerotic cardiovascular disease: Code(s): I25.10 - Atherosclerotic heart disease of [place] coronary artery without angina pectoris Category: Medical (3) PVC (premature ventricular contraction): Code(s): I49.3 - Ventricular premature depolarization Category: Medical Plan Cardiac studies reviewed. Echocardiogram with LVEF of 30-35%. Basal inferior akinesis. [id number]-mrjwbtob mitral regurgitation. Mild dilatation of sinus of Valsalva/ascending aorta. A more recent study apparently performed at [place] [facility] for insurance reasons shows LVEF of 50-55%. Mild left ventricular hypertrophy. Moderate mitral regurgitation. Sinus of Valsalva size 4.3 cm. Ascending aorta 3.9 cm. In the exercise stress test, no increase in PVCs during exercise. Perfusion imaging suggestive of possible infarct in the basal inferolateral wall. Cardiac catheterization with mid RCA 40% stenosis but otherwise unremarkable. Cardiac MRI with LVEF of 44%. Basal inferior/inferolateral/anterolateral hypokinesis. Increased LV trabeculation. Areas of severe myocardial thinning. Mild asymmetric hypertrophy. Intracavitary gradient. Moderate mitral regurgitation. 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 Cardiac PET without any evidence of sarcoidosis. Holter shows underlying sinus rhythm with an average rate of 67/Min; frequent sinus bradycardia and frequent PVCs with a burden of 10%. Frequent NSVT. With regard to management, was on amiodarone but not in his list anymore. Underwent EP study but without any inducible ventricular arrhythmias. Infrequent mitral annular PVCs but not amenable to mapping/ablation despite pacing and isoproterenol infusion. He seems otherwise clinically stable. He will need to follow up with EP regarding next steps. Coding Level of Care Code Est Pt Level 4 (39866) Complex EM visit Add On G2211 Diagnoses Nonischemic cardiomyopathy I42.8 Atherosclerotic cardiovascular disease I25.10 PVC (premature ventricular contraction) I49.3 CPT Codes EKG - CPT: 09259-[id number], Complete ([id number])
--- OUTSIDE RECORDS SUMMARY | 2024-11-17 10:58 | XMS_ITS | Encounter Summary ---
Author Organization [facility] Address [address] [place] [address] Care Team Providers Care Multicultural Internship Name Role Phone Cecilia Mccauley JERMAINE Primary Care Provider [phone] Reason for Visit * Imaging (Emergency) - Closed Specialty Diagnoses / Procedures Referred By Woody villalpando Referred To Contact Cardiology Diagnoses Ventricular premature depolarization Ventricular tachycardia (CMS/HCC) Procedures Transthoracic echocardiogram (TTE) complete with PRN contrast, bubble, strain, and 3D order panel ME TTE W 2D IMAGE COMPLETE W DOPPLER ECHO & COLOR FLOW DOPPLER ECHO ME TEODORO 2D COMPLETE W/CONTRAST OR W & WO CONTRAST WITH DOPPLER Erlin Gurrola DO [address] [place] [address] Phone: tel: fax: [facility] Referral ID Status Reason Start Date Expiration Date Visits Re quested Visits Authorized [id number] Closed 10/28/2024 10/28/2025 1 1 Encounter Details Date Type Department Care Team (Latest Contact Info) Description 11/04/2024 7:30 AM EST Ancillary Procedure [facility] [address] [place] [address] Ventricular premature depolarization; Ventricular tachycardia (CMS/HCC) Social History Tobacco Use Types Packs/Day Years Used Date Smoking Tobacco: Never Assessed Sex and Gender Information Value Date Recorded Sex Assigned at Not on file Legal Sex Male 12:54 PM EST Gender Identity Not on file Sexual Orientation Not on file documented as of this encounter Last Filed Vital Signs Vital Sign Reading Time Taken Comments Blood Pressure 123/80 11/04/2024 7:41 AM EST Pulse - - Temperature - - Respiratory Rate - - Oxygen Saturation - - Inhaled Oxygen Concentration - - Weight 69.4 kg (153 lb) 11/04/2024 7:41 AM EST Height 175.3 cm (5' 9 ) 11/04/2024 7:41 AM EST Body Mass Index 22.59 11/04/2024 7:41 AM EST documented in this encounter Plan of Treatment Not on file documented as of this encounter Procedures Procedure Name Priority Date/Time Associated Diagnosis Comments TRANSTHORACIC ECHOCARDIOGRAM (TTE) COMPLETE STAT 11/04/2024 8:32 AM EST Ventricular premature depolarization Ventricular tachycardia (CMS/HCC) documented in this encounter Results * (ABNORMAL) TRANSTHORACIC ECHOCARDIOGRAM (TTE) COMPLETE (11/04/2024 8:32 AM EST) Left Atrium Minor [place] 5.5 cm CV PACS Left Atrium Major [place] 5.1 cm CV PACS LA Area Sys (A2C) 23 cm2 CV PACS LA Area Sys (A4C) 17 cm2 CV PACS LA Volume (BP) 58 mL CV PACS RA Area 18.2 cm2 CV PACS RA 2D Volume 49 mL CV PACS AV Mean Gradient 5 mmHg CV PACS Ao VTI 36.2 cm CV PACS AV Peak Kem 1.6 m/s CV PACS AV Peak Gradient 10 mmHg CV PACS AV Area Continuity Equation 2.6 cm2 CV PACS AV Area Peak Velocity 2.8 cm2 CV PACS Aortic Sinus Valsalva 4.3 cm CV PACS Ascending Aorta 3.9 cm CV PACS IVSD 1.2(A) 0.6 - 1.0 cm CV PACS LVIDD 5.1 4.2 - 5.8 cm CV PACS LVIDS 3.8 2.5 - 4.0 cm CV PACS LVOT Diameter 2.7 cm CV PACS LVOT Mean Kem 0.6 m/s CV PACS LVOT Mean Grad 1 mmHg CV PACS LVOT Peak VTI 16.2 cm CV PACS LVOT Peak Kem 0.8 m/s CV PACS LVOT Peak Gradient 2 mmHg CV PACS LVPWD 1.1(A) 0.6 - 1.0 cm CV PACS MV E' Tissue Velocity Lateral 4 cm/s CV PACS MV E' Tissue Velocity Septal 4 cm/s CV PACS LVOT Area 5.7 cm2 CV PACS LVOT Stroke Volume 93 mL CV PACS MR PISA Nyquist Kem 34 cm/s CV PACS PISA MR Radius 0.50 cm CV PACS MR VTI 223.0 cm CV PACS MR PISA Max Velocity 5.8 m/s CV PACS MR Peak Gradient 135 mmHg CV PACS MV Deceleration [place] 1.4 m/s2 CV PACS E Wave Deceleration Time 386(A) 119 - 242 ms CV PACS MV PHT 113 ms CV PACS MV Peak A Kem 0.69 m/s CV PACS MV Peak E Kem 0.53 m/s CV PACS PISA MR EROA 0.09 cm2 CV PACS MV Area PHT 2.0 cm2 CV PACS PISA Regurgitant Volume 20 mL CV PACS PV Acceleration Time 92 ms CV PACS RV Diastolic Basal Dimension 4.2(A) 2.5 - 4.1 cm CV PACS RV S' 13 cm/s CV PACS TAPSE 22 mm CV PACS TR Peak Velocity 2.54 m/s CV PACS TR Peak Gradient 26 mmHg CV PACS E/E' Ratio Septal 13 CV PACS E/E' Ratio Averaged 13 CV PACS LVOT Stroke Index 51 mL/m2 CV PACS Relative Wall Thickness ratio 0.43 CV PACS LVOT:AV VTI Index 0.45 CV PACS FS 25 % CV PACS LV Mass 2D 227 g CV PACS Ascending Aorta Index 2.12 cm/m2 CV PACS LVOT flow 343 mL/s CV PACS RA 2D Volume Index 27 mL/m2 CV PACS AVE Index (VTI) 1.39 cm2/m2 CV PACS AVE Index (Pk Kem) 1.52 cm2/m2 CV PACS LVIDD Index 2.77 cm/m2 CV PACS LVIDS Index 2.07 cm/m2 CV PACS AV Velocity Ratio 0.50 CV PACS E/A Ratio 0.8 CV PACS E/E' Ratio Lateral 13 CV PACS LA Volume Index (BP) 32 mL/m2 CV PACS LV Mass Index 2D 124 g/m2 CV PACS BSA 1.84 m2 CV PACS Anatomical Region Laterality Modality Ultrasound Narrative 11/05/2024 8:49 AM EST ?Left ventricle cavity size is normal. Left ventricular systolic function is low normal with an ejection fraction of 50-55%. ?No regional LV wall motion abnormalities noted. ?Left ventricle mild hypertrophy. ?Right ventricle cavity is normal. Right ventricular systolic function is normal. ?Mitral valve demonstrates moderate regurgitation. ?The Sinus of Valsalva is dilated (4.3 cm). The ascending aorta is dilated (3.9 cm). Left Ventricle Left ventricle cavity size is normal. There is mild hypertrophy. Systolic function is low normal with an ejection fraction of 50-55%. There are no regional LV wall motion abnormalities. Indeterminate diastolic function. Right Ventricle Right ventricle cavity appears normal. Systolic function is normal. Left Atrium Left atrium cavity size is normal. Right Atrium Right atrium cavity is normal. IVC/SVC Inferior vena cava structure is normal. Mitral Valve The leaflets are mildly thickened. There is annular calcification. There is moderate regurgitation. There is no evidence of mitral valve stenosis. Tricuspid Valve The leaflets exhibit normal excursion. There is trace regurgitation. Aortic Valve The aortic valve is trileaflet. The leaflets are mildly thickened. There is no regurgitation or stenosis. Pulmonic Valve Pulmonic valve structure is normal. There is trace pulmonic valve regurgitation. Ascending Aorta The Sinus of Valsalva is (4.3 cm). The ascending aorta (3.9 cm). Pericardium Pericardium appears normal. There is no pericardial effusion. Study Details Overall the study quality was adequate. Erlin Gurrola DO CV ECHO PROCEDURES Final Res ult documented in this encounter Visit Diagnoses Diagnosis Ventricular premature depolarization Other premature beats Ventricular tachycardia (CMS/HCC) Paroxysmal ventricular tachycardia documented in this encounter Care Teams Multicultural Internship Relationship Specialty Start Date End Date Cecilia Mccauley FNP [address] [place] [address] PCP - General Family Medicine 11/04/24 documented as of this encounter
--- OUTSIDE RECORDS SUMMARY | 2024-11-17 10:58 | XMS_ITS | Clinical Summary ---
Author Organization [facility] Address [address] [place] [address] Phone Care Team Providers Care Bend Up Name Role Phone Cecilia Mccauley JERMAINE Primary Care Provider [phone] Encounters Date Type Department Care Team Description 11/04/2024 7:30 AM EST Ancillary Procedure [facility] [address] [facility] [address] [place] [address] Ventricular premature depolarization; Ventricular tachycardia (CMS/HCC) from Last 3 Months Social History Tobacco Use Types Packs/Day Years Used Date Smoking Tobacco: Never Assessed Sex and Gender Information Value Date Recorded Sex Assigned at Not on file Legal Sex Male 12:54 PM EST Gender Identity Not on file Sexual Orientation Not on file Last Filed Vital Signs Vital Sign Reading Time Taken Comments Blood Pressure 123/80 11/04/2024 7:41 AM EST Pulse - - Temperature - - Respiratory Rate - - Oxygen Saturation - - Inhaled Oxygen Concentration - - Weight 69.4 kg (153 lb) 11/04/2024 7:41 AM EST Height 175.3 cm (5' 9 ) 11/04/2024 7:41 AM EST Body Mass Index 22.59 11/04/2024 7:41 AM EST Plan of Treatment Health Maintenance Due Date Last Done Comments Pneumococcal Vaccine: 50+ Years (1 of 2 - PCV) 1974 COVID-19 Vaccine (3 - Moderna risk series) 03/01/2021 02/01/2021, 01/04/2021 Zoster Vaccines (2 of 2) 02/23/2024 12/29/2023 Abdominal Aortic Aneurysm (AAA) Screen 10/29/2024 Depression Screening 10/29/2024 Falls Risk Assessment 10/29/2024 Hepatitis C Screening 10/29/2024 Medicare Annual Wellness Visit 10/29/2024 Social Influencers of Health Screening 10/29/2024 Hypertension/CHF/CAD Annual BMP Blood Test 11/04/2024 Colorectal Cancer Screening: Colonoscopy 02/06/2026 02/07/2016 Cholesterol Screening (Lipid Panel) 03/28/2027 03/28/2022 DTaP,Tdap,and Td Vaccines (4 - Td or Tdap) 07/06/2030 07/06/2020, 02/22/2010, 03/02/2001 RSV Immunization Patients 60+ Years Old (1 - 1-dose 75+ series) 2031 Influenza Vaccine Completed 06/21/2024, , 07/30/2022, Additional history exists HIB Vaccines Aged Out No longer eligi [...] to complete this topic RSV Immunization Patients Under 20 months Aged Out No longer eligible based on patient's age to complete this topic Varicella Vaccines Aged Out No longer eligible based on patient's age to complete this topic Procedures Procedure Name Priority Date/Time Associated Diagnosis Comments TRANSTHORACIC ECHOCARDIOGRAM (TTE) COMPLETE STAT 11/04/2024 8:32 AM EST Ventricular premature depolarization Ventricular tachycardia (CMS/HCC) from Last 3 Months Results * (ABNORMAL) TRANSTHORACIC ECHOCARDIOGRAM (TTE) COMPLETE (11/04/2024 8:32 AM EST) Left Atrium Minor [place] 5.5 cm CV PACS Left Atrium Major [place] 5.1 cm CV PACS LA Area Sys [...] Gradient 135 mmHg CV PACS MV Deceleration [place] 1.4 m/s2 CV PACS E Wave Deceleration [...] DO CV ECHO PROCEDURES Final Res ult from Last 3 Months Insurance [employer] MEDICARE Care Teams Bend Up Relationship Specialty Start Date End Date Cecilia Mccauley FNP [address] [place] [id number] PCP - General Family Medicine 11/04/24
--- OUTSIDE RECORDS SUMMARY | 2024-11-17 10:58 | XMS_ITS | Encounter Summary ---
Author Organization [employer] Address [address] [place] [address] [address] [place] [address] Care Team Providers Care Supervisor Properties Name Role Phone Sakina Correa Primary Care Provider Un available PcpHannahssrito Primary Care Provider U navailable Encounter Details Date Type Department Care Team (Late st Contact Info) Description 08/26/2022 Orders Only Hannah [facility] [address] [place] [address] Gissel Reardon [place] Social History Tobacco Use [...] on filedocumented in this encounter Care Teams Supervisor Properties Relationship Specialty Start Date End Date Sakina Correa FNP PCP - General Family Medicine 08/20/22 12/25/22 Hannah Sow PCP - General Family Medicine 01/13/23 documented as of this encounter
--- OUTSIDE RECORDS SUMMARY | 2024-11-17 10:58 | XMS_ITS | Clinical Summary ---
Author Organization [employer] Address [address] [place] [address] [address] [place] [address] Care Team Providers Care Custom Stock Maker Name Role Phone PcpHannah Unassigned Primary Care Provider U navailable Allergies Active Allergy Reactions Criticality Noted Date Comments Atorvastatin Palpitations Low 08/26/2022 Medications simvastatin (Zocor) 10 MG tablet Take 10 mg by mouth in the evening. 07/09/20 Active lisinopril 20 MG tablet Take 20 mg by mouth in the morning. 07/09/20 22 Active ofloxacin (Ocuflox) 0.3 % ophthalmic solution INSTILL ONE DROP INTO THE RIGHT EYE 4 TIMES A DAY STARTING THREE DAYS PRIOR TO SURGERY AND CONTINUING AFTER.] 08/20/20 22 Active prednisoLONE acetate (Pred-Forte) 1 % ophthalmic suspension 22 Active ezetimibe (Zetia) 10 MG tabletIndications:Ather osclerosis of aorta (CMS/HCC),Pure hypercholesterolemia Take 1 tablet (10 mg) by mouth in the morning. 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
== END 2024-11-17 10:29 | disposition home or self-care (01) ==
PROVIDERS: PCP Nurse Practitioner Family; Visit Provider Internal Medicine
DX: I42.8 Other cardiomyopathies (principal); I25.10 Atherosclerotic heart disease of native coronary artery without angina pectoris; I49.3 Ventricular premature depolarization
CPT/HCPCS: 93010; 99214

== ENCOUNTER → 2024-11-17 09:38 | Outpatient (BNVA) | payer MEDICARE, SELFPAY | PROVIDERS: PCP Nurse Practitioner Family; Visit Provider Internal Medicine | DX: I42.8 Other cardiomyopathies (principal); I25.10 Atherosclerotic heart disease of native coronary artery without angina pectoris; I49.3 Ventricular premature depolarization; Z87.891 Personal history of nicotine dependence | CPT/HCPCS: 93005 ==

== ENCOUNTER 2024-12-08 08:11 | Outpatient (AMB) | payer MEDICARE, SELFPAY ==
--- NOTE | 2024-12-08 08:13 | A.OFFPC_ITS ---
Vital Signs 12/08/24 08:18 Height 5 ft 9 in Weight 154 lb BMI 22.7 BP 116/66 Blood Pressure Location Rt brachial Position Sitting Respiration 16 Pulse 61 Pulse Source Pulse Oximeter Temp 97.3 F Temp Source Oral Pulse Oximetry (%) 98 Oxygen Delivery Method Room Air Intake Visit Reasons: 2 mos CPE, labs review Intake Note: patient here for CPE and lab review Registered Nurse Cardiac Telemetry Required: No Allergies No Known Allergies Allergy (Verified 12/08/24 08:31) Medication List - Last Reconciled 12/08/24 by Cecilia Mccauley CNP aspirin 81 mg PO DAILY brimonidine 0.2% 1 drp ophthalmic (eye) Q12H rosuvastatin 10 mg PO DAILY 90 days valsartan 20 mg (1/2 x 40 mg) PO BID 90 days Tobacco use date assessed: 12/08/24 Fall risk assessment: No Falls in past year Last assessed Fall Risk: 12/08/24 Dental Screening Dental Screen Date: 12/08/24 Did you have a dental visit in the last 12 months?: Yes Did you have a dental problem in the last 6 months where you did not have access to dental care?: No Was dental information given to patient?: Patient has dentist HPI HPI Comments History of Present Illness Details 69-year-old male presents for an extende d physical exam. He admits to taking his medications as prescribed without adverse reactions. Acute issue(s) - None Past Medical History - HTN, hypercholesterolemia, dextroscol iosis, chronic low back pain, PVC, CAD, cardiomyopathy, normocystic anemia, leukopenia, surgical h/o repaired detached retina OD, cataract surgery OD, and prostate cancer in 2016 with successful radiation in 2017 Social History - Former smoker: smoked 1-1/5 pack cigar ettes daily x 6 years and quit 47 years ago, smoked 2 cigars daily and quit 3 years ago. Does not vape. Does not drink alcohol. Denies recreational drug use - Has been making healthy dietary choice s. Exercises routinely. Generally sleep well Health maintenance - Last eye exam was a week and half ago with Dr. Dupree, [facility]. He will sign a release for his PCP to obtain his ophthalmology record - Last dental visit was last fall - Last Tdap was in in - He notes that he up-to-yadira on the flu vaccine - He received one shingles vaccine in 4/ . Encouraged to up-date his shingles vaccines - He has never been vaccinated for pneum onia vaccine; encouraged to get vaccinated at the local pharmacy - Last colonoscopy was 6 yeas ago at [facility] : benign polyps. He was seen by [facility] gastroenterology for a colonoscopy in 04/2024; he notes that procedure was held due to cardiology workup. [facility] cardiology [facility] Medical History Cardiomyopathy Prostate cancer Rectal abscess Hypertension Surgical History H/O colonoscopy S/P narciso-rectal abscess repair, follow-up exam History of cardiac cath Hx of cataract surgery H/O hernia repair Family History Father Aneurysm Social History Household Members: Spouse Both parents involved: No Caregiver staying overnight: No Housing: House Are you a primary career resource technician to a significant other at home: No Do you presently have visiting nurse or other home services: No 75 years or older and lives alone: No Alcohol intake: never Patient Tobacco Use Status: Former Tobacco user Tobacco use type: Cigar Years Smoked: Pateint quit 2 weeks ago. e-Cigarette/Vaping Use: Never Used service: No Current occupational status: retired Cognitive needs: No Hearing needs: No Vision needs: No Questionnaire PHQ-9 Over the last 2 weeks, how often have you been bothered by any of the following problems? 1. Little interest or pleasure in doing things: not at all 2. Feeling down, depressed, or hopeless: not at all 3. Trouble falling or staying asleep, or sleeping too much: not at all 4. Feeling tired or having little energy: not at all 5. Poor appetite or overeating: not at all 6. Feeling bad about yourself - or that you are a failure or have let yourself or your family down: not at all 7. Trouble concentrating on things, such as reading the newspaper or watching television: not at all 8. Moving or speaking so slowly that other people could have noticed. Or the opposite - being so fidgety or restless that you have been moving around a lot more than usual: not at all 9. Thoughts that you would be better off or of hurting yourself in some way: not at all Total score: 0 Depression Screening Interpretation: Negative Depression Screening Done: Yes 37005 - PHQ-9 Billing: Yes Source: Developed by Drs. Cristino Morris, Nory Molina, Luca Wills and colleagues, with an educational regina from [employer]. Thrive Questionnaire Date Thrive assessed: 12/08/24 I am a: Patient What is your living situation today?: I have a steady place to live Within the past 12 months, did the food you bought not last and you didn't have the money to get more?: Never true Within the past 12 months, did you worry whether your food would run out before you got money to buy more?: Never true Do you have trouble paying for medicines?: No Do you have trouble getting transportation to medical appointments?: No Do you have trouble paying your heating and electricity bill?: No Do you have trouble taking care of your child, family member or friend?: No Do you have trouble with day-to-day activities such as bathing, preparing meals, shopping, managing finances, etc.?: No Are you currently unemployed and looking for a job?: No Are you interested in more education?: No Please select the resources that you would like help with: None Currently or been in a relationship where the following occur: No concerns reported THRIVE Score: 0 AUDIT C Alcohol Use Questionnaire (AUDIT-C) 1. How often do you have a drink containing alcohol?: Never 3. How often do you have six or more drinks on one occasion?: Never Total Score: 0 AMALIA-7 AMB Questionnaire AMALIA-7 Date AMALIA - 7 assessed: 12/08/24 Feeling nervous, anxious, or on edge: 0 = Not at all Not being able to stop or control worryin = Not at all Worrying too much about different things: 0 = Not at all Trouble relaxin = Not at all Being so restless that it is hard to sit still: 0 = Not at all Becoming easily annoyed or irritable: 0 = Not at all Feeling afraid as if something awful might happen: 0 = Not at all Total AMALIA-7 score (0-4 normal; 5-9 mild; 10-14 moderate; 15-21 severe): 0 Source: Developed by Drs. Cristino Morris, Nory Molina, Luca Wills and colleagues, with an educational regina from [employer]. AMALIA-7 Assessment Billing AMALIA-7 Assessment Tool: AMALIA-7 Assessment 00448 Review of Systems Const Details: Denies chills, Denies fatigue, Denies fever(s), Denies headache(s) and Denies weakness HEENT Denies change in vision, Denies dizziness, Denies headache(s), Denies hearing loss, Denies nasal congestion, Denies sinus pain, Denies sinus pressure and Denies sore throat Card Denies chest pain, Denies lightheadedness, Denies dyspnea and Denies other (palpitations) Resp Denies cough, Denies dyspnea and Denies wheezing GI Denies abdominal pain, Denies melena, Denies hematochezia, Denies change in bowel habits, Denies dyspepsia and Denies nausea Denies hematuria and Denies dysuria Musc Denies abnormal gait, Denies myalgias, Denies arthralgias, Denies numbness and Denies tingling Skin/Breast Denies rash, Denies unusual bruising and Denies wounds Neuro Denies abnormal gait, Denies dizziness, Denies headache(s), Denies memory loss, Denies numbness, Denies Sensory deficit (Neuro), Denies tingling and Denies weakness Psych Denies anxiety, Denies depression and Denies memory loss Endo Denies cold intolerance, Denies fatigue, Denies heat intolerance, Denies polydipsia and Denies polyuria Jesús/Lymph Denies easy bleeding and Denies easy bruising Aller/Immun Denies wheezing Physical exam (Primary Care) Vital Signs: Last Vital Signs Temp 97.3 F 12/08/24 08:18 Pulse 61 12/08/24 08:18 Resp 16 12/08/24 08:18 BP 116/66 12/08/24 08:18 Pulse Ox 98 12/08/24 08:18 Oxygen Delivery Method Room Air 12/08/24 08:18 BMI result Body Mass Index 22.7 Tobacco/Smoking Status: Tobacco use Status Tobacco use date assessed 12/08/24 12/08/24 08:18 Patient Tobacco Use Status Former Tobacco user 12/08/24 08:16 Tobacco use type Cigar 12/08/24 08:16 e-Cigarette/Vaping Use Never Used 12/08/24 08:16 PHQ-9: PHQ-9 Score PHQ-9: Total score 0 12/08/24 08:25 Depression Screening Interpretation: Negative Thrive Assessment: Date of Thrive Assessment Date Thrive assessed 12/08/24 12/08/24 08:25 Currently or been in a relationship where the following occur: No concerns reported Const Other: General: no acute distress, well developed, alert and awake Nutritional Appearance: well nourished Orientation/consciousness: patient oriented x3 HENMT Head: Yes normocephalic and Yes atraumatic Ears: hearing grossly normal bilaterally and TM's normal bilaterally General nose exam: Normal external nose present and Normal nares present Mouth: Normal oral and palatal mucosa present and moist mucous membranes Teeth and gingiva: dentition normal Throat: Yes oropharynx normal Eyes Pupils: Equal, round and reactive pupils present and Pupil accommodation reflex normal EOM: EOMs intact bilaterally Neck Neck: Yes normal visual inspection, Yes no lymphadenopathy and Yes trachea midline Thyroid: Thyroid normal Carotids: no bruits Lymphatic: no lymphadenopathy noted Chest Chest palpation & inspection: normal inspection of the chest Resp Effort & Inspection: normal respiratory effort Auscultation: clear to auscultation bilaterally Cardio Rate: regular rate Rhythm: regular rhythm Heart sounds: S1 normal heart sound present, S2 normal heart sound present, no gallops, no murmurs and no rubs Bruits: no abdominal aortic bruits and no carotid bruits GI Palpation (GI): No Abdominal aortic bruit present, Soft to palpation, nontender, No hepatosplenomegaly present and No Rebound tenderness present Auscultation: normal bowel sounds General: Yes no CVA tenderness Back/Spine/Pelvis Back: no CVA tenderness Cervical Spine: cervical ROM normal and No Cervical spine tenderness Thoracic/Lumbar Spine: thoraco-lumbar ROM normal, No pain with thoraco-lumbar ROM, No thoracic spinal tenderness and No lumbar spinal tenderness Skin General: warm and dry. Normal skin color. Normal skin turgor Lesions: no lesions Rashes: no rashes Trauma: no lacerations or abrasions Wounds: no wounds Nails: normal Neuro General: patient oriented x3, gait normal and CN's II-XI intact bilaterally Cranial nerves: Yes Equal, round and reactive pupils present Cognition (Neuro): normal cognition Gait exam (Neuro): Normal gait present Motor exam (neuro): 5/5 motor strength present throughout Sensory Exam: No Sensory deficit (Neuro) Deep tendon reflexes (DTR's): Right patellar reflex intensity grade: 2+ and Left patellar reflex intensity grade: 2+ Extrem General: Yes normal to inspection, No edema and No calf tenderness Psych Appearance: grossly normal Affect: normal affect Attitude: cooperative Thought process: Normal thought process present Coding Level of Care Code Est Pt Prev Care >65y(89788) Diagnoses Physical exam, annual Z00.00 Primary hypertension I10 Hypertension type: primary hypertension Hypercholesterolemia E78.00 Normocytic anemia D64.9 Leukopenia D72.819 Colon cancer screening Z12.11 Additional Codes AMALIA-7 Assessment Billing - AMALIA-7 Assessment Tool: AMALIA-7 Assessment 75917 ([id number]) PHQ-9 - 72169 - PHQ-9 Billing: Yes ([id number]) Assessment & Plan Assessment & Plan (1) Physical exam, annual: Code(s): Z00.00 - Encounter for general adult medical examination without abnormal findings Category: Medical Plan: Normal physical exam of a 69-year-old male. No significant functional limitations noted. Follow-up in 3 months for hypertension or sooner with symptoms or concerns. Verbalized understanding and agreed with the plan. (2) Hypertension: Code(s): I10 - Essential (primary) hypertension Category: Medical Qualifiers: Hypertension type: primary hypertension Qualified Code(s): I10 - Essential (primary) hypertension Plan: Blood pressure is 116/66, within goal of less than 130/80. Continue current treatment regimen. Follow-up in 3 months. Verbalized understanding and agreed with treatment plan. (3) Hypercholesterolemia: Code(s): E78.00 - Pure hypercholesterolemia, unspecified Category: Medical Plan: Recent lipid panel level is normal. Continue current treatment regimen. Will continue to monitor. Verbalized understanding and agreed with the plan. (4) Normocytic anemia: Code(s): D64.9 - Anemia, unspecified Category: Medical Plan: Recent RBC and H&H levels a slightly low, 4 point 4 3 and 13.1/40.1 respectively, MCV is normal. He has history of normal cystic anemia. Recent iron profile, vitamin B12, and folate levels are normal. Will monitor periodically or with related symptoms. Verbalized understanding and agreed with the plan (5) Leukopenia: Code(s): D72.819 - Decreased white blood cell count, unspecified Category: Medical Plan: Recent WBC is low, 3.4, vitamin B12 and folate level are normal. He has history of leukopenia. Will monitor periodically or based on symptoms. Verbalized understanding and agreed with the plan. (6) Colon cancer screening: Code(s): Z12.11 - Encounter for screening for malignant neoplasm of colon Category: Medical Plan: He was due for a colonoscopy last fall. However, the procedure was held due to cardiology workup. Will message Cardiology regarding clearance for colonoscopy.
[2024-12-08 08:18] VITALS: BP 116/66; PULSE 61; RESP 16; TEMP 36.3; O2SAT 98; BMI 22.7
--- OUTSIDE RECORDS SUMMARY | 2024-12-08 08:25 | XMS_ITS | Clinical Summary ---
Author Organization [address] [facility] Address [address] [place] [address] Phone Care Team Providers Care I&C Technician Name Role Phone Cecilia Mccauley JERMAINE Primary Care Provider [phone] Encounters Date Type Department Care Team Description 11/04/2024 7:30 AM EST Ancillary Procedure [facility] [address] [place] [address] Ventricular premature depolarization; Ventricular tachycardia [...] (11/04/2024 8:32 AM EST) Left Atrium Minor Vian 5.5 cm CV PACS Left Atrium Major Vian 5.1 cm CV PACS [place] Area Sys [...] Gradient 135 mmHg CV PACS MV Deceleration [place] 1.4 m/s2 CV PACS E Wave Deceleration [...] Months Insurance [employer] MEDICARE Care Teams I&C Technician Relationship Specialty Start Date End Date Cecilia Mccauley FNP [address] [place] [phone] PCP - General Family Medicine 11/04/24
--- OUTSIDE RECORDS SUMMARY | 2024-12-08 08:26 | XMS_ITS | Continuity of Care Document ---
Author Organization [facility] Address [address] [place] [address]- Care Team Providers Care Airport Manager Name Role Phone Neris Rodriguez MD Primary Care Physician [phone] [facility] Date(s): 09/23/24 - 11/20/24 [facility] [address] [place] [address]- Attending Physician: Erlin Gurrola DO Admitting Physician: Erlin Gurrola DO Referring Physician: Erlin Gurrola DO Encounter Type: Pre-OutPatient One Time Allergies, Adverse Reactions, Alerts No Known Allergies [...] Date: 09/16/24 Status: Ordered Repeat number: 1 Social History Social History Type Response Smoking [...] on: 03/29/21 Sex Sex Representation Male (finding) Patient Care team information Care Team Personnel Name: Aydee Thompson RN Position: S RN Member Role: Primary Care Nurse Name: Neris Rodriguez MD Position: [facility] Physician - Pediatrics Member Role: PCP Address: [address] [place] [address] Telecom: Name: Rianna Johnson Position: [facility] Outreach Member Role: Lifetime Consulting Physician Name: Tavo Rondon Position: [facility] Outreach Member Role: Lifetime Consulting Physician Name: Alysia Flores RN Position: [facility] RN Member Role: Primary Care Nurse Name: Padmini Escudero RN Position: [facility] RN Member Role: Primary Care Nurse Care Team Related Persons Name: ROC VELASQUEZ Insurance Providers Guarantor name: CLAUDIO EVA Health Plan Information #: 1 Payer: [facility] MCR REPLC Member Number: [id number] Policy Number: NA Group Number: [id number] Health Plan Information #: 3 Payer: [facility] SUP Member Number: [id number] Policy Number: NA Group Number: NA Health Plan Information #: 2 Payer: [facility] MCARE ADVANTAGE HMO Member Number: [id number] Policy Number: NA Group Number: NA
--- OUTSIDE RECORDS SUMMARY | 2024-12-08 08:26 | XMS_ITS | Encounter Summary ---
Author Organization [facility] Address [address] [place] [address] [address] [place] [address] Care Team Providers Care Senior Relationship Manager Name Role Phone Sakina Correa Primary Care Provider Un available PcpHannah Unassrito Primary Care Provider U navailable Encounter Details Date Type Department Care Team (Late st Contact Info) Description 08/26/2022 Orders Only [facility] MED[facility] [address] [place] [address] Gissel Reardon [place] Social History Tobacco Use [...] as of this encounter Plan of Treatment Upcoming Encounters Date Type Department Care Team (Late st Contact Info) Description 12/30/2024 10:30 AM EDT Office Visit [facility] OPTOMETRY [address] [place] [address] Aruna Sanford OD [address] [place] [address] documented as of this encounter Visit Diagnoses Not on filedocumented in this encounter Care Teams Senior Relationship Manager Relationship Specialty Start Date End Date Sakina Correa FNP PCP - General Family Medicine 08/20/22 12/25/22 Hannah Sowssrito PCP - General Family Medicine 01/13/23 documented as of this encounter
--- OUTSIDE RECORDS SUMMARY | 2024-12-08 08:26 | XMS_ITS | Continuity of Care Document ---
Author Organization [facility] Address [address] [place] [address]- Care Team Providers Care Retail Sales Manager Name Role Phone Neris Rodriguez MD Primary Care Physician [phone] Encounter [facility] Date(s): 10/21/24 - 11/20/24 [facility] [address] [place] [address]- Attending Physician: Luca Hogan Admitting Physician: Luca Hogan Referring Physician: AdmtrLuca Encounter Type: Triage Allergies, Adverse Reactions, Alerts No Known Allergies [...] Care Nurse Name: Neris Rodriguez MD Position: [facility] Physician - Pediatrics Member Role: PCP Address: [address] [place] [address] Telecom: Name: Rianna Johnson Position: [facility] Outreach Member Role: Lifetime Consulting Physician Name: Tavo Rondon Position: [facility] Outreach Member Role: Lifetime Consulting Physician Name: Alysia Flores RN Position: [facility] RN Member Role: Primary Care Nurse Name: Padmini Escudero RN Position: [facility] RN Member Role: Primary Care Nurse Care Team Related Persons Name: ROC VELASQUEZ Insurance Providers Guarantor name: [facility] Plan Information #: 1 Payer: [facility] REPLC Member Number: NA Policy Number: NA Group Number: NA
--- OUTSIDE RECORDS SUMMARY | 2024-12-08 08:26 | XMS_ITS | Clinical Summary ---
Author Organization [facility] [employer] Address [address] [place] [address] [address] [place] [address] Care Team Providers Care Self Pay Collector Name Role Phone PcpHannah Unassigned Primary Care [...] Moderna Covid-19 Vaccine 12+ 02/01/2021,01/05/20 21 Novel [id number], all formulations 2009 TD (adult), 2 Lf [...] the past 12 months, has t he Ul[employer], gas, oil or water company threatened to [...] 07/30/2022 8:30 AM EST Plan of Treatment Upcoming Encounters Date Type Department Care Team (Late st Contact Info) Description 12/30/2024 10:30 AM EDT Office Visit Hannah [facility] OPTOM[facility]RY [address] [place] [address] Aruna Sanford, OD [address] [place] [address] Health Maintenance Due Date Last Done Comments CT Colonography 1956 FIT DNA/Cologuard 1956 FIT 1956 FOBT 1956 Sigmoidoscopy 1956 Alcohol/Substance Use Screening 1968 Hepatitis C Screening 1974 Pneumococcal Vaccine: 50+ Years (1 of 2 - PCV) 1975 Depression Screening 08/29/2023 08/29/2022, 08/29/20 SDOH Screening 08/29/2023 08/29/2022 Dental X-Ray: Bitewings 02/16/2024 02/14/2023 Zoster Vaccines (2 of 2) 02/23/2024 12/29/2023 COVID-19 Vaccine (3 - season) 2024 02/01/2021, 01/04/2021 Dental Oral Exam 05/20/2024 11/17/2023, 02/14/2023 Dental Prophylaxis 05/20/2024 11/17/2023, 04/28/2023 Tobacco Screening 11/16/2024 11/17/2023 Colonoscopy 02/06/2026 02/07/2016, 05/05/2006 Colorectal Cancer Screening 02/06/2026 Dental X-Ray: Full Mouth 02/15/2026 02/14/2023 Lipid Panel 03/28/2027 03/28/2022, 01/13, 01/05/2021 DTaP/Tdap/Td Vaccines (3 - Td or Tdap) 07/06/2030 07/06/2020, 02/22/2010, 03/02/2001 RSV Patients and Patients Aged 60 years or older (1 - 1-dose 75+ series) 2031 Influenza [...] SYSTEM 03/28/2022 6:14 AM EDT Sakina Correa CURLING MACHINE OPERATOR LAB BLOOD ORDERABLES Laly cameron Result [facility] [address] * -Colonoscopy (02/07/2016 9:27 AM EDT) [...] Most Recently Relevant to Health Maintenance Insurance [employer] Care Teams Self Pay Collector Relationship Specialty Start Date End Date Hannah Sow Unassigned PCP - General Family Medicine 01/13/23
== END 2024-12-08 08:45 | disposition home or self-care (01) ==
LOC: HO.HMCFM 08:11
PROVIDERS: PCP Nurse Practitioner Family; Visit Provider Nurse Practitioner Family
DX: Z00.00 Encounter for general adult medical examination without abnormal findings (principal); I10 Essential (primary) hypertension; E78.00 Pure hypercholesterolemia, unspecified; D64.9 Anemia, unspecified; D72.819 Decreased white blood cell count, unspecified; Z12.11 Encounter for screening for malignant neoplasm of colon

== ENCOUNTER → 2024-12-08 08:11 | Outpatient (BNVA) | payer MEDICARE, SELFPAY | PROVIDERS: PCP Nurse Practitioner Family; Visit Provider Nurse Practitioner Family | DX: Z00.00 Encounter for general adult medical examination without abnormal findings (principal); I10 Essential (primary) hypertension; E78.00 Pure hypercholesterolemia, unspecified; D64.9 Anemia, unspecified; D72.819 Decreased white blood cell count, unspecified | CPT/HCPCS: 96127; 99397 ==

== ENCOUNTER 2025-03-29 10:28 | Outpatient (AMB) | payer MEDICARE, SELFPAY ==
--- NOTE | 2025-03-29 10:33 | A.OFFPC_ITS ---
Vital Signs 03/29/25 10:40 03/29/25 10:59 Height 5 ft 9 in Weight 150 lb 8 oz BMI 22.2 BP 113/57 L 100/70 Blood Pressure Location Rt brachial Rt brachial Position Sitting Sitting Respiration 16 Pulse 55 Pulse Source Pulse Oximeter Auscultation Temp 97.4 F Temp Source Oral Pulse Oximetry (%) 96 Oxygen Delivery Method Room Air Intake Visit Reasons: 3 mos HTN Intake Note: patient here for 3 month follow up on HTN Commercial Sales Director Required: No Allergies No Known Allergies Allergy (Verified 03/29/25 10:35) Tobacco use date assessed: 03/29/25 Fall risk assessment: No Falls in past year Last assessed Fall Risk: 03/29/25 Dental Screening Dental Screen Date: 03/29/25 Did you have a dental visit in the last 12 months?: No Did you have a dental problem in the last 6 months where you did not have access to dental care?: No Was dental information given to patient?: Yes HPI HPI Comments History of Present Illness Details 69-year-old male presents for hypertensi on follow-up. He admits to taking his medications as prescribed without adverse reactions. He notes he has been making healthy lifestyle changes. He denies episodes of dizziness/lightheadedness. He offers no complaints and denies acute symptoms at this time. He notes that he saw is Financial Services Education Consultant at [facility] last , EKG was done and revealed PVCs with every other beat. He is scheduled to have cardiac ablation in 06/08/25. [facility] Medical History Cardiomyopathy Prostate cancer Rectal abscess Hypertension Surgical History H/O colonoscopy S/P narciso-rectal abscess repair, follow-up exam History of cardiac cath Hx of cataract surgery H/O hernia repair Family History Father Aneurysm Social History Household Members: Spouse Both parents involved: No Caregiver staying overnight: No Housing: House Are you a primary healthcare administrative assistant to a significant other at home: No Do you presently have visiting nurse or other home services: No 75 years or older and lives alone: No Alcohol intake: never Patient Tobacco Use Status: Former Tobacco user Tobacco use type: Cigar Years Smoked: Pateint quit 2 weeks ago. e-Cigarette/Vaping Use: Never Used Second Hand Smoke Exposure: No service: No Current occupational status: retired Current occupational exposures/hazards: No Cognitive needs: No Hearing needs: No Vision needs: No Questionnaire Thrive Questionnaire Date Thrive assessed: 10/29/24 I am a: Patient What is your living situation today?: I have a steady place to live Within the past 12 months, did the food you bought not last and you didn't have the money to get more?: Never true Within the past 12 months, did you worry whether your food would run out before you got money to buy more?: Never true Do you have trouble paying for medicines?: No Do you have trouble getting transportation to medical appointments?: No Do you have trouble paying your heating and electricity bill?: No Do you have trouble taking care of your child, family member or friend?: No Do you have trouble with day-to-day activities such as bathing, preparing meals, shopping, managing finances, etc.?: No Are you currently unemployed and looking for a job?: No Are you interested in more education?: No Please select the resources that you would like help with: None Currently or been in a relationship where the following occur: No concerns reported THRIVE Score: 0 AMALIA-7 AMB Questionnaire AMALIA-7 Date AMALIA - 7 assessed: 12/08/24 Source: Developed by Drs. Cristino Morris, Nory Molina, Luca Wills and colleagues, with an educational regina from [employer]. Review of Systems Const Details: Const Denies chills, Denies fatigue, Denies fever(s), Denies headache(s) and Denies weakness ENT Denies dizziness and Denies headache(s) Card Denies chest pain, Denies lightheadedness, Denies dyspnea and Denies other (Palpitations) Resp Denies cough, Denies dyspnea, Denies wheezing and Denies other ( shortness of breath) GI Denies abdominal pain, Denies melena, Denies hematochezia, Denies change in bowel habits, Denies dyspepsia and Denies nausea Denies hematuria and Denies dysuria Musc Denies abnormal gait, Denies myalgias, Denies arthralgias, Denies numbness and Denies tingling Skin/Breast Denies rash, Denies unusual bruising and Denies wounds Neuro Denies abnormal gait, Denies dizziness, Denies headache(s), Denies memory loss, Denies numbness, Denies Sensory deficit (Neuro), Denies tingling and Denies weakness Psych Denies anxiety, Denies depression, Denies memory loss Endo Denies cold intolerance, Denies fatigue, Denies heat intolerance, Denies polydipsia and Denies polyuria Aller/Immun Denies wheezing Physical exam (Primary Care) Vital Signs: Last Vital Signs Temp 97.4 F 03/29/25 10:40 Pulse 55 03/29/25 10:59 Resp 16 03/29/25 10:40 BP 100/70 03/29/25 10:59 Pulse Ox 96 03/29/25 10:40 Oxygen Delivery Method Room Air 03/29/25 10:40 BMI result Body Mass Index 22.2 Tobacco/Smoking Status: Tobacco use Status Tobacco use date assessed 03/29/25 03/29/25 10:39 Patient Tobacco Use Status Former Tobacco user 03/29/25 10:34 Tobacco use type Cigar 03/29/25 10:34 e-Cigarette/Vaping Use Never Used 03/29/25 10:34 Thrive Assessment: Date of Thrive Assessment Date Thrive assessed 10/29/24 03/29/25 10:34 Currently or been in a relationship where the following occur: No concerns reported Const Other: General: no acute distress and well developed Nutritional Appearance: well nourished Orientation/consciousness: patient oriented x3 HENMT Head: Yes normocephalic and Yes atraumatic Eyes General: appearance normal, both eyes and all related structures Pupils: Equal, round and reactive pupils present EOM: EOMs intact bilaterally Resp Effort & Inspection: normal respiratory effort Auscultation: clear to auscultation bilaterally Cardio Rate: regular rate Rhythm: regular rhythm Heart sounds: S1 normal heart sound present, S2 normal heart sound present, no gallops, no murmurs and no rubs GI Palpation (GI): No Abdominal aortic bruit present, Soft to palpation, nontender, No hepatosplenomegaly present and No Rebound tenderness present Auscultation: normal bowel sounds General: Yes no CVA tenderness Back/Spine/Pelvis Back: no CVA tenderness Cervical Spine: cervical ROM normal and No Cervical spine tenderness Thoracic/Lumbar Spine: thoraco-lumbar ROM normal, No pain with thoraco-lumbar ROM, No thoracic spinal tenderness and No lumbar spinal tenderness Extrem General: Yes normal to inspection, No edema and No calf tenderness Skin General: warm and dry. Normal skin color. Normal skin turgor Neuro General: patient oriented x3, gait normal and no focal neuro deficit Cranial nerves: Yes Equal, round and reactive pupils present Cognition (Neuro): normal cognition Gait exam (Neuro): Normal gait present Sensory Exam: No Sensory deficit (Neuro) Psych Appearance: grossly normal Affect: normal affect Attitude: cooperative Thought process: Normal thought process present Coding Level of Care Code Est Pt Level 3 (00197) Diagnoses Primary hypertension I10 Hypertension type: primary hypertension Arrhythmia I49.9 Assessment & Plan Assessment & Plan (1) Hypertension: Code(s): I10 - Essential (primary) hypertension Category: Medical Qualifiers: Hypertension type: primary hypertension Qualified Code(s): I10 - Essential (primary) hypertension Plan: Resting blood pressure is 100/70, within goal of less than 130/80, heart rate is 55. Continue current treatment regimen. Low-sodium diet encouraged. Follow-up in 2 months or sooner with symptoms or concerns. Verbalized understanding and agreed with the plan. (2) Arrhythmia: Code(s): I49.9 - Cardiac arrhythmia, unspecified Category: Medical Plan: Heart irregularly regular rythym. He his h/o PVCs. No longer on amiodarone. He notes that he saw is Financial Services Education Consultant at [facility] last , EKG was done and revealed PVCs with every other beat. He is scheduled to have cardiac ablation in 06/08/25. Continue current treatment regimen. Follow-up with cardiology as planned. Return with symptoms or concerns. Verbalized understanding and agreed with the plan.
[2025-03-29 10:40] VITALS: BP 113/57; RESP 16; TEMP 36.3; O2SAT 96; BMI 22.2
[2025-03-29 10:59] VITALS: BP 100/70; PULSE 55
--- OUTSIDE RECORDS SUMMARY | 2025-03-29 11:41 | XMS_ITS | Clinical Summary ---
Author Organization [employer] Address [address] [place] [address] Care Team Providers Care Bi Report Developer Name Role Phone PcpHannah Unassigned Primary Care Provider U navailable Allergies Active Allergy Reactions Criticality Noted Date Comments Atorvastatin Palpitations Low 08/26/2022 Medications ofloxacin (Ocuflox) 0.3 % ophthalmic solution INSTILL [...] morning. 30 tablet 3 08/29/20 22 Active rosuvastatin (Crestor) 10 MG tablet Take 10 mg by mouth Once per day. Active valsartan (Diovan) 40 MG tablet take 1/2 tablet (20mg) by mouth twice daily Active brimonidine (AlphaGAN) 0.2 % ophthalmic solution INSTILL 1 DROP IN BOTH EYES EVERY 12 HOURS DAILY. 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, unspecified glaucoma stage (Primary Dx); Left posterior capsular opacification; Epiretinal membrane (ERM) of left eye; Right retinal detachment; Presbyopia of both eyes 12/30/2024 Travel from Last 3 Months Immunizations Immunization Administration Dates Next Due INFLUENZA INJECTABLE QUADRIV ALANT CCIIV4 MDCK Multi-dose vial 06/21/2019 Influenza injectable quadrivalent preservative f ree 07/30/2022 Influenza, IIV3, injectable 08/06/2021, 0 Moderna Covid-19 Vaccine 12+ 02/01/2021,01/05/20 21 Novel [id number], all formulations 2009 TD (adult), 2 Lf tetanus tox oid, preservative free, adsorbed 07/06/2020,03/02/2001 Tdap 02/22/2010 Social History Tobacco Use Types Packs/Day Years Used Date Smoking Tobacco: Former Cigars Smokeless Tobacco: Never Tobacco Cessation:Counseling Given: Not Answered Alcohol Use Standard Drinks/Week Comments Not Currently 0 (1 standard drink = 0.6 oz pur e alcohol) Housing Stability Answer Date Recorded What is your housing situation today? I have sanjaycasa drake 07/26/[address] you [...] the past 12 months, has t he electric, gas, oil or water company threatened to [...] Sign Reading Time Taken Comments Blood Pressure 110/70 12/30/2024 10:36 AM EDT Pulse 58 07/30/2022 8:30 AM EST Temperature 35.8 C (96.4 F) 12/30/2024 10:36 AM EDT Respiratory Rate - - Oxygen Saturation 98% [...] 1974 Pneumococcal Vaccine: 50+ Years (1 of 1 - PCV) 2006 Depression Screening 08/29/2023 08/29/2022, 08/29/20 SDOH Screening 08/29/2023 08/29/2022 Dental X-Ray: Bitewings 02/16/2024 02/14/2023 Zoster Vaccines (2 of 2) 02/23/2024 12/29/2023 COVID-19 Vaccine (3 - 2023- season) 2024 02/01/2021, 01/04/2021 Dental Oral Exam 05/20/2024 11/17/2023, 02/14/2023 Dental Prophylaxis 05/20/2024 11/17/2023, 04/28/2023 Influenza Vaccine (#1) 2025 , 12/09/2023, 07/30/2022, Additional history exists Tobacco Screening 12/30/2025 12/30/2024 Colonoscopy 02/06/2026 02/07/2016, 05/05/2006 Colorectal Cancer Screening [...] age to complete this topic Meningococcal B Vaccine Aged Out No l onger eligible based on patient's age to complete [...] Procedure Name Priority Date/Time Associated Diagnosis Comments OCT, OPTIC NERVE - OU - BOTH EYES Routine 12/30/2024 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, unspecified glaucoma stage OCT, RETINA - OU - BOTH EYES Routine 12/30/2024 Epiretinal membrane (ERM) of left eye Full PROPHYLAXIS - ADULT Routine 11/17/2023 12:00 PM EST PERIODIC ORAL EVALUATION - ESTABLISHED PATIENT Routine 11/17/2023 12:00 PM EST INTRAORAL - COMPLETE SERIES OF RADIOGRAPHIC IMAGES Routine 02/14/2023 7:30 AM EDT LIPID PANEL, STANDARD Routine 03/28/2022 6:14 AM EDT COLONOSCOPY Routine 02/07/2016 9:27 AM EDT from Last 3 Months or Most Recently Relevant to Health Maintenance Results * OCT, Retina - OU - Both Eyes (12/30/2024) Impressions Aruna Sanford, OD - 12/30/2024 Right eye (OD): epiretinal membrane (ERM) w/traction causing loss of foveal contour; establishing baseline Left eye (OS): epiretinal membrane (ERM) w/traction causing loss of foveal contour; establishing baseline Aruna Sanford OD OPHTH TOMOGRAPHY Final Result * OCT, Optic Nerve - OU - Both Eyes (12/30/2024) Impressions Aruna Sanford, OD - 12/30/2024 Right eye (OD): RNFL/GCC is normal, baseline Left eye (OS): RNFL/GCC is normal, baseline Aruna Sanford OD OPHTH TOMOGRAPHY Final Result * -Lipid Panel (03/28/2022 6:14 AM EDT) LDL CHOLESTEROL, CALCULATED 84 (0-130) MG/DL [facility] CHOLESTEROL, TOTAL 155 (<200) MG/DL [facility] HDL CHOL 61 (>39) MG/DL [facility] NON HDL CHOLESTEROL (CALC) 94 (<160) MG/DL [facility] TRIGLYCERIDE 52 (<150) MG/DL [facility] 03/28/2022 6:14 AM EDT Sakina Correa CAFE OPERATOR LAB BLOOD ORDERABLES Laly l Result [facility] [address] * -Colonoscopy (02/07/2016 9:27 AM EDT) [...] Most Recently Relevant to Health Maintenance Insurance AARP MEDICARE ADVANTAGE O GENERIC DENTAL AARP MEDICARE ADVANTAGE HMO [employer] Care Teams Bi Report Developer Relationship Specialty Start Date End Date PcpHannah Unassigned PCP - General Family Medicine 01/13/23
--- OUTSIDE RECORDS SUMMARY | 2025-03-29 11:41 | XMS_ITS | Clinical Summary ---
Author Organization [address] [place] [address] [place] [phone] Phone Care Team Providers Care Conservation Educator Name Role Phone Cecilia Mccauley JERMAINE Primary Care Provider [phone] Social History Tobacco Use Types Packs/Day Years [...] 10/29/2024 Hypertension/CHF/CAD Annual BMP Blood Test 11/04/2024 Influenza Vaccine (#1) 2025 , 12/09/2023, 07/30/2022, Additional history exists Colorectal Cancer Screening: Colonoscopy 02/06/2026 02/07/2016 Cholesterol Screening (Lipid Panel) 03/28/2027 03/28/2022 DTaP,Tdap,and Td Vaccines (4 - Td or Tdap) 07/06/2030 07/06/2020, 02/22/2010, 03/02/2001 RSV Immunization Adult Patients (1 - 1-dose 75+ series) 2031 HIB [...] topic Insurance [employer] MEDICARE Care Teams Conservation Educator Relationship Specialty Start Date End Date Cecilia Mccauley FNP [address] [place] [address] PCP - General Family Medicine 11/04/24
== END 2025-03-29 11:06 | disposition home or self-care (01) ==
LOC: HO.HMCFM 10:29
PROVIDERS: PCP Nurse Practitioner Family; Visit Provider Nurse Practitioner Family
DX: I10 Essential (primary) hypertension (principal); I49.9 Cardiac arrhythmia, unspecified

== ENCOUNTER → 2025-03-29 10:28 | Outpatient (BNVA) | payer MEDICARE, SELFPAY | PROVIDERS: PCP Nurse Practitioner Family; Visit Provider Nurse Practitioner Family | DX: I10 Essential (primary) hypertension (principal); I49.9 Cardiac arrhythmia, unspecified | CPT/HCPCS: 99212 ==

== ENCOUNTER → 2025-04-04 08:22 | Outpatient (BNVA) | payer SELFPAY | PROVIDERS: PCP Nurse Practitioner Family; Visit Provider Physician Assistant Medical | DX: Z02.79 Encounter for issue of other medical certificate (principal) ==

== ENCOUNTER 2025-04-07 09:16 | Outpatient (AMB) | payer OTHER, SELFPAY ==
[2025-04-07 09:22] VITALS: BP 112/60; PULSE 60; BMI 21.8
--- NOTE | 2025-04-07 09:22 | MHC.OFFVIS ---
Vital Signs 04/07/25 09:22 Height 5 ft 9 in Weight 147 lb 11.355 oz BMI 21.8 BP 112/60 Blood Pressure Location Lt brachial Position Sitting Pulse 60 Pulse Source Pulse Oximeter Intake Visit Reasons: 4 mth f/up Allergies No Known Allergies Allergy (Verified 03/29/25 10:35) Medication List - Last Reconciled 04/07/25 by Christiano Crisostomo MD aspirin 81 mg PO DAILY brimonidine 0.2% 1 drp ophthalmic (eye) Q12H brinzolamide 1% 1 drp ophthalmic-Right BID rosuvastatin 10 mg PO DAILY 90 days valsartan 20 mg (1/2 x 40 mg) PO BID 90 days HPI Comments Details: Chong returns for follow-up regarding cardiomyopathy as well as frequent PVCs. No known coronary artery disease or myocardial infarction. Fairly active without any clear-cut symptoms. He has undergone comprehensive workup including echocardiogram, stress test, Holter, cardiac MRI as well as cardiac PET. He underwent EP study for PVCs but could not be ablated. It seems that there is a plan for repeat EP study/ablation. Overall, he states he feels good. No new concerns. [facility] Medical History Cardiomyopathy Prostate cancer Rectal abscess Hypertension Surgical History H/O colonoscopy S/P narciso-rectal abscess repair, follow-up exam History of cardiac cath Hx of cataract surgery H/O hernia repair Family History Father Aneurysm Social History Household Members: Spouse Both parents involved: No Caregiver staying overnight: No Housing: House Are you a primary lawn care professional to a significant other at home: No Do you presently have visiting nurse or other home services: No 75 years or older and lives alone: No Alcohol intake: never Patient Tobacco Use Status: Former Tobacco user Tobacco use type: Cigar Years Smoked: Pateint quit 2 weeks ago. e-Cigarette/Vaping Use: Never Used Second Hand Smoke Exposure: No service: No Current occupational status: retired Current occupational exposures/hazards: No Cognitive needs: No Hearing needs: No Vision needs: No Review of Systems Const Denies weakness ENT Denies dizziness Card Denies chest pain, Denies chest pain with activity, Denies syncope, Denies rapid heart rate, Denies pedal edema, Denies edema, Denies leg edema, Denies lightheadedness, Denies palpitations, Denies dyspnea, Denies dyspnea on exertion and Denies orthopnea Resp Denies cough, Denies dyspnea and Denies dyspnea on exertion GI Denies hematochezia and Denies change in stool character Musc Denies abnormal gait, Denies muscle cramps, Denies muscle weakness, Denies numbness, Denies radiating pain into limb and Denies tingling Neuro Denies abnormal gait, Denies dizziness, Denies syncope, Denies numbness, Denies tingling and Denies weakness Endo Denies palpitations Physical Exam Vital Signs: Last Vital Signs Pulse 60 04/07/25 09:22 BP 112/60 04/07/25 09:22 BMI result Body Mass Index 21.8 Const General: comfortable and no acute distress Orientation/consciousness: patient oriented x3 HEENT Other: Unremarkable Head: Yes normal to inspection Neck Neck: Yes normal visual inspection Chest Chest palpation & inspection: normal inspection of the chest Resp Auscultation: clear to auscultation bilaterally Cardio Palpation: normal PMI Heart sounds: S1 normal heart sound present, S2 normal heart sound present, no gallops, no murmurs and no rubs GI Palpation (GI): Soft to palpation Back/Spine/Pelvis Other: unremarkable Skin General skin exam: no rashes or lesions noted Neuro General: patient oriented x3 Extrem General: Yes normal to inspection Psych Mental Status: mental status grossly normal Assessment & Plan Assessment & Plan (1) Nonischemic cardiomyopathy: Code(s): I42.8 - Other cardiomyopathies Category: Medical (2) Atherosclerotic cardiovascular disease: Code(s): I25.10 - Atherosclerotic heart disease of [place] coronary artery without angina pectoris Category: Medical (3) PVC (premature ventricular contraction): Code(s): I49.3 - Ventricular premature depolarization Category: Medical Plan Cardiac studies reviewed. Echocardiogram with LVEF of 30-35%. Basal inferior akinesis. [id number] mitral regurgitation. Mild dilatation of sinus of Valsalva/ascending aorta. A more recent study apparently performed at [facility] for insurance reasons shows LVEF of 50-55%. Mild left ventricular hypertrophy. Moderate mitral regurgitation. Sinus of Valsalva size 4.3 cm. Ascending aorta 3.9 cm. In the exercise stress test, no increase in PVCs during exercise. Perfusion imaging suggestive of possible infarct in the basal inferolateral wall. Holter shows underlying sinus rhythm with an average rate of 67/Min; frequent sinus bradycardia and frequent PVCs with a burden of 10%. Frequent NSVT. Cardiac catheterization with mid RCA 40% stenosis but otherwise unremarkable. Cardiac MRI with LVEF of 44%. Basal inferior/inferolateral/anterolateral hypokinesis. Increased LV trabeculation. Areas of severe myocardial thinning. Mild asymmetric hypertrophy. Intracavitary gradient. Moderate mitral regurgitation. 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 Cardiac PET without any evidence of sarcoidosis. EP note reviewed. Plan is for repeat EP study/PVC ablation-per patient, scheduled in May. We will recheck another Holter post ablation. Discussion Notes I discussed with the patient the plan for the upcoming cardiac ablation scheduled for May and the potential need for a defibrillator if the ablation does not resolve the premature ventricular contractions. We also talked about the use of a Holter monitor in June to assess the effectiveness of the ablation and monitor the cardiac rhythm. Patient was informed and verbally consented to the use of an ambient scribe for clinic note documentation during this visit. Orders: Orders ECG 3 day holter monitor 06/15/25 I49.3 - Ventricular premature depolarization Patient Instructions: - Attend the scheduled cardiac ablation in May. - Follow up with a Holter monitor test post ablation. - Contact the clinic if any concerns or symptoms arise before the scheduled appointments. Coding Level of Care Code Est Pt Level 4 (43638) Complex EM visit Add On G2211 Diagnoses Nonischemic cardiomyopathy I42.8 Atherosclerotic cardiovascular disease I25.10 PVC (premature ventricular contraction) I49.3
--- OUTSIDE RECORDS SUMMARY | 2025-04-07 09:47 | XMS_ITS | Encounter Summary ---
Author Organization [facility] Address [address] [place] [id number] Phone Care Team Providers Care Account Strategist Name Role Phone Neris Rodriguez MD Primary Care Provider [phone] Neris Rodriguez MD Unavailable [phone] Cecilia Mccauley WARD MAID Primary Care Provider Carmelina vailable Encounter Details Date Type Department Care Team (Late st Contact Info) Description 06/10/2019 Procedure Pass [facility] Endoscopy Admitting Dept Virtual Department [address] [place] [address] Social History Tobacco Use Types Packs/Day Years Used Date Smoking Tobacco: Every Day Cigarettes Cigars Smokeless Tobacco: Never Alcohol Use Standard Drinks/Week Comments Yes 12 (1 standard drink = 0.6 oz pu re alcohol) Sex and Gender Information Value Date Recorded Sex Assigned at Not on file Legal Sex Male 9:54 PM EDT Gender Identity Not on file Sexual Orientation Not on file documented as of this encounter Plan of Treatment Not on file documented as of this encounter Visit Diagnoses Not on filedocumented in this encounter Care Teams Account Strategist Relationship Specialty Start Date End Date Neris Rodriguez MD [address] [place] [address] [email or web address] PCP - General 06/30/17 10/26/24 Cecilia Mccauley NP PCP - General Nurse Practitioner 10/27/24 Neris Rodriguez MD [address] [place] [address] [email or web address] Insurance Assigned Provider 05/22/19 07/22/20 documented as of this encounter Additional Source Comments The information contained in this document represents components of the legal health record. It is not the complete legal health record.[facility]
--- OUTSIDE RECORDS SUMMARY | 2025-04-07 09:47 | XMS_ITS | Clinical Summary ---
Author Organization [address] [place] [address] [place] [phone] Phone Care Team Providers Care Spring Former Hand Name Role Phone Cecilia Mccauley JERMAINE Primary Care Provider [phone] Social History Tobacco Use Types Packs/Day Years [...] Comments Pneumococcal Vaccine: 50+ Years (1 of 1 - PCV) 2006 Zoster Vaccines (2 of 2) 02/23/2024 12/29/2023 COVID-19 Vaccine (3 - season) 2024 02/01/2021, 01/04/2021 Depression Screening 09/15/2024 Abdominal Aortic Aneurysm (AAA) Screen 10/29/2024 Falls Risk Assessment 10/29/2024 Hepatitis C Screening 10/29/2024 Medicare Annual Wellness Visit 10/29/2024 Social Influencers of Health Screening 10/29/2024 Hypertension/CHF/CAD Annual BMP Blood Test 11/04/2024 Influenza Vaccine (#1) 2025 4, 12/09/2023, 07/30/2022, Additional history exists Colorectal Cancer [...] topic Insurance [employer] MEDICARE Care Teams Spring Former Hand Relationship Specialty Start Date End Date Cecilia Mccauley FNP [address] [place] [address] PCP - General Family Medicine 11/04/24
--- OUTSIDE RECORDS SUMMARY | 2025-04-07 09:47 | XMS_ITS | Clinical Summary ---
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 Name Role Phone PcpHannah Unassigned Primary Care [...] Resolved Date Chicken pox 08/20/1958 08/26/2022 Immunizations Immunization Administration Dates Next Due INFLUENZA INJECTABLE QUADRIV ALANT CCIIV4 MDCK Multi-dose vial 06/21/2019 Influenza injectable quadrivalent preservative f ree 07/30/2022 Influenza, IIV3, injectable 08/06/2021, 0 Moderna Covid-19 Vaccine 12+ 02/01/2021,01/05/20 21 Novel [id number], all formulations 2009 TD (adult), 2 Lf [...] PCV) 2006 Depression Screening 08/29/2023 08/29/2022, 08/29/20 22 SDOH Screening 08/29/2023 08/29/2022 Dental X-Ray: Bitewings [...] SYSTEM 03/28/2022 6:14 AM EDT Sakina Correa SENIOR DATA MODELER LAB BLOOD ORDERABLES Laly l Result [facility] [address] * -Colonoscopy (02/07/2016 9:27 AM EDT) [...] Most Recently Relevant to Health Maintenance Insurance [facility] MEDICARE ADVANTAGE HMO GENERIC DENTAL A[employer] MEDICARE ADVANTAGE HMO [place] Care Teams Long Haul Truck Driver Relationship Specialty Start Date End Date PcpHannah Unassigned PCP - General Family Medicine 01/13/23
== END 2025-04-07 09:38 | disposition home or self-care (01) ==
LOC: HO.HCS 09:16
PROVIDERS: PCP Nurse Practitioner Family; Visit Provider Internal Medicine
DX: I42.8 Other cardiomyopathies (principal); I25.10 Atherosclerotic heart disease of native coronary artery without angina pectoris; I49.3 Ventricular premature depolarization
CPT/HCPCS: 99214

== ENCOUNTER 2025-06-03 08:30 | Outpatient (REF) | payer MEDICARE, SELFPAY ==
[2025-06-03 14:54] LABS: Hematocrit 42.2 % (42.0-52.0); Hemoglobin 14.1 g/dl (14.0-18.0); Mean Corpuscular HGB Conc 33.4 g/dl (31.0-36.0); Mean Corpuscular Hemoglobin 30.3 pg (27.0-33.0); Mean Corpuscular Volume 90.6 fL (80.0-98.0); NRBC Abs Auto 0.000 X10*3/uL (0.0-0.012); NRBC Pct Auto 0.0 /100WBC (0.0-0.2); Platelet Count 203 X10*3/uL (160-400); Red Blood Count 4.66 X10*6/uL (4.60-5.80); White Blood Count 4.8 X10*3/uL (4.8-10.8)
[2025-06-03 15:08] LABS: Anion Gap 10 (12-20); Blood Urea Nitrogen 24 mg/dL (9-16); Calcium 9.1 mg/dL (8.4-10.2); Carbon Dioxide 27 mmol/L (22-29); Chloride 109 mmol/L (96-108); Estimated Glomerular Filt Rate > 60; Potassium 4.7 mmol/L (3.3-5.1); Sodium 141 mmol/L (135-145)
== END 2025-06-03 08:31 | disposition home or self-care (01) ==
LOC: HO.WFDLDS 08:30
PROVIDERS: PCP Nurse Practitioner Family; Visit Provider Nurse Practitioner Family
DX: I10 Essential (primary) hypertension (principal); I49.9 Cardiac arrhythmia, unspecified; R06.02 Shortness of breath
CPT/HCPCS: 36415; 80048; 85027; 99212

== ENCOUNTER 2025-06-03 08:30 | Outpatient (AMB) | payer MEDICARE, SELFPAY ==
--- NOTE | 2025-06-03 08:34 | MHC.PC.OV ---
Vital Signs 06/03/25 08:37 Height 5 ft 9 in Weight 154 lb BMI 22.7 BP 120/59 L Blood Pressure Location Lt brachial Position Sitting Respiration 16 Pulse 40 L Pulse Source Auscultation Temp 97.6 F Temp Source Oral Pulse Oximetry (%) 96 Oxygen Delivery Method Room Air Intake Visit Reasons: 2 mos HTN Intake Note: patient here for follow up on HTN Radio Communication Coordinator Required: No Allergies No Known Allergies Allergy (Verified 06/03/25 08:36) Tobacco use date assessed: 06/03/25 Fall risk assessment: No Falls in past year Last assessed Fall Risk: 06/03/25 Dental Screening Dental Screen Date: 06/03/25 Did you have a dental visit in the last 12 months?: Yes Did you have a dental problem in the last 6 months where you did not have access to dental care?: No Was dental information given to patient?: Patient has dentist HPI HPI Comments History of Present Illness Details 70-year-old male presents for hypertension follow-up. He admits to taking his medications as prescribed without adverse reactions. He notes he has been making healthy lifestyle changes. He reports feeling of shortness of breath, at rest and with exertion, which is frequent and has been occurring daily for the past couple of months.? He denies episodes of dizziness/lightheadedness. He has history of PVCs. He was on amiodarone 200 mg daily which was discontinued by Cardiology. 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 [facility] Medical History Cardiomyopathy Prostate cancer Rectal abscess Hypertension Surgical History H/O colonoscopy S/P narciso-rectal abscess repair, follow-up exam History of cardiac cath Hx of cataract surgery H/O hernia repair Family History Father Aneurysm Social History Household Members: Spouse Both parents involved: No Caregiver staying overnight: No Housing: House Are you a primary long term care social worker to a significant other at home: No Do you presently have visiting nurse or other home services: No 75 years or older and lives alone: No Alcohol intake: never Patient Tobacco Use Status: Former Tobacco user Tobacco use type: Cigar Years Smoked: Pateint quit 2 weeks ago. e-Cigarette/Vaping Use: Never Used Second Hand Smoke Exposure: No service: No Current occupational status: retired Current occupational exposures/hazards: No Cognitive needs: No Hearing needs: No Vision needs: No Questionnaire Thrive Questionnaire Date Thrive assessed: 10/29/24 I am a: Patient What is your living situation today?: I have a steady place to live Within the past 12 months, did the food you bought not last and you didn't have the money to get more?: Never true Within the past 12 months, did you worry whether your food would run out before you got money to buy more?: Never true Do you have trouble paying for medicines?: No Do you have trouble getting transportation to medical appointments?: No Do you have trouble paying your heating and electricity bill?: No Do you have trouble taking care of your child, family member or friend?: No Do you have trouble with day-to-day activities such as bathing, preparing meals, shopping, managing finances, etc.?: No Are you currently unemployed and looking for a job?: No Are you interested in more education?: No Please select the resources that you would like help with: None Currently or been in a relationship where the following occur: No concerns reported THRIVE Score: 0 AMALIA-7 AMB Questionnaire AMALIA-7 Date AMALIA - 7 assessed: 12/08/24 Source: Developed by Drs. Cristino Morris, Nory Molina, Luca Wills and colleagues, with an educational regina from [employer]. Review of Systems Const Details: Const Denies chills, Denies fatigue, Denies fever(s), Denies headache(s) and Denies weakness ENT Denies dizziness and Denies headache(s) Card Denies chest pain, Denies lightheadedness, Denies dyspnea and Denies other (Palpitations) Resp Reports shortness of breath, Denies cough, Denies wheezing GI Denies abdominal pain, Denies melena, Denies hematochezia, Denies change in bowel habits, Denies dyspepsia and Denies nausea Denies hematuria and Denies dysuria Musc Denies abnormal gait, Denies myalgias, Denies arthralgias, Denies numbness and Denies tingling Skin/Breast Denies rash, Denies unusual bruising and Denies wounds Neuro Denies abnormal gait, Denies dizziness, Denies headache(s), Denies memory loss, Denies numbness, Denies Sensory deficit (Neuro), Denies tingling and Denies weakness Psych Denies anxiety, Denies depression, Denies memory loss Endo Denies cold intolerance, Denies fatigue, Denies heat intolerance, Denies polydipsia and Denies polyuria Aller/Immun Denies wheezing Physical exam (Primary Care) Vital Signs: Last Vital Signs Temp 97.6 F 06/03/25 08:37 Pulse 40 L 06/03/25 08:37 Resp 16 06/03/25 08:37 BP 120/59 L 06/03/25 08:37 Pulse Ox 96 06/03/25 08:37 Oxygen Delivery Method Room Air 06/03/25 08:37 BMI result Body Mass Index 22.7 Tobacco/Smoking Status: Tobacco use Status Tobacco use date assessed 06/03/25 06/03/25 08:42 Patient Tobacco Use Status Former Tobacco user 06/03/25 08:36 Tobacco use type Cigar 06/03/25 08:36 e-Cigarette/Vaping Use Never Used 06/03/25 08:36 Thrive Assessment: Date of Thrive Assessment Date Thrive assessed 10/29/24 06/03/25 08:36 Currently or been in a relationship where the following occur: No concerns reported Const Other: General: no acute distress and well developed Nutritional Appearance: well nourished Orientation/consciousness: patient oriented x3 [facility] Head: Yes normocephalic and Yes atraumatic Eyes General: appearance normal, both eyes and all related structures Pupils: Equal, round and reactive pupils present EOM: EOMs intact bilaterally Resp Effort & Inspection: normal respiratory effort Auscultation: clear to auscultation bilaterally Cardio Rate: regular rate Rhythm: regular rhythm Heart sounds: S1 normal heart sound present, S2 normal heart sound present, no gallops, no murmurs and no rubs GI Palpation (GI): No Abdominal aortic bruit present, Soft to palpation, nontender, No hepatosplenomegaly present and No Rebound tenderness present Auscultation: normal bowel sounds General: Yes no CVA tenderness Back/Spine/Pelvis Back: no CVA tenderness Cervical Spine: cervical ROM normal and No Cervical spine tenderness Thoracic/Lumbar Spine: thoraco-lumbar ROM normal, No pain with thoraco-lumbar ROM, No thoracic spinal tenderness and No lumbar spinal tenderness Extrem General: Yes normal to inspection, No edema and No calf tenderness Skin General: warm and dry. Normal skin color. Normal skin turgor Lesions: no lesions Rashes: no rashes Trauma: no lacerations or abrasions Wounds: no wounds Nails: normal Neuro General: patient oriented x3, gait normal and no focal neuro deficit Cranial nerves: Yes Equal, round and reactive pupils present Cognition (Neuro): normal cognition Gait exam (Neuro): Normal gait present Sensory Exam: No Sensory deficit (Neuro) Psych Appearance: grossly normal Affect: normal affect Attitude: cooperative Thought process: Normal thought process present Coding Level of Care Code Established Pt Est Pt Level 4 (85366) Patient Type Established Diagnoses Primary hypertension I10 Hypertension type: primary hypertension Arrhythmia I49.9 SOB (shortness of breath) R06.02 Assessment & Plan Assessment & Plan (1) Hypertension: Code(s): I10 - Essential (primary) hypertension Category: Medical Qualifiers: Hypertension type: primary hypertension Qualified Code(s): I10 - Essential (primary) hypertension Plan: Blood pressure is 120/59, within goal of less than 130/80. Continue current treatment regimen. Low-sodium diet encouraged. Follow-up in 3 months or sooner with symptoms or concerns. Verbalized understanding and agreed with the plan. (2) Arrhythmia: Code(s): I49.9 - Cardiac arrhythmia, unspecified Category: Medical Plan: He has been experiencing shortness of breath, at rest and with exertion, which is frequent and has been occurring daily for the past couple of months.? No episodes of dizziness/lightheadedness. Heart rate irregularly regular. EKG with normal sinus rhythm with frequent premature ventricular complexes in a pattern of bigeminy, ST-depression on V4 and V5. Will check CBC and BMP. Stat Echo and stress test ordered. Will review results and make changes as needed. Return or go to the ED with worsening symptoms. Verbalized understanding and agreed with the plan. (3) SOB (shortness of breath): Code(s): R06.02 - Shortness of breath Category: Medical Plan: Plan as above. Orders: Orders Basic Metabolic Panel Today I49.9 - Cardiac arrhythmia, unspecified, R06.02 - Shortness of breath CA stress test Today I49.9 - Cardiac arrhythmia, unspecified, R06.02 - Shortness of breath AMB EKG-In Office Today I49.9 - Cardiac arrhythmia, unspecified, R06.02 - Shortness of breath Complete Blood Count no Diff Today I49.9 - Cardiac arrhythmia, unspecified, R06.02 - Shortness of breath CA echo transthoracic complete Today I49.9 - Cardiac arrhythmia, unspecified, R06.02 - Shortness of breath
[2025-06-03 08:37] VITALS: BP 120/59; PULSE 40; RESP 16; TEMP 36.4; O2SAT 96; BMI 22.7
--- OUTSIDE RECORDS SUMMARY | 2025-06-03 09:04 | XMS_ITS | Encounter Summary ---
Author Organization [employer] Address [address] [place] [address] [place] [address] Care Team Providers Care Furniture Arranger Name Role Phone Sakina Correa Primary Care Provider Un available PcpHannah Unassigned Primary Care Provider U navailable Encounter Details Date Type Department Care Team (Late st Contact Info) Description 08/26/2022 Orders Only Hannah [facility] [address] [place] [address] Gissel Reardon [place] Social History Tobacco Use [...] PM EST documented as of this encounter Functional Status * Over the past 2 weeks, how often have you been bothered by any of the following problems? Question Answer Date of Assessment Author Little interest or pleasure in doing things Not at all 08/29/2022 8:09 AM EST Reba Vera RMA Feeling down, depressed, or hopeless Not at all 08/29/2022 8:09 AM EST Reba Vera RMA Patient Health Questionnaire -2 Score 0 08/29/2022 8:09 AM EST Reba Vera RMA documented as of this encounter Plan of Treatment Not on file documented as of this encounter Visit Diagnoses Not on filedocumented in this encounter Care Teams Furniture Arranger Relationship Specialty Start Date End Date Sakina Correa FNP PCP - General Family Medicine 08/20/22 12/25/22 Pcp, [place] Unassigned PCP - General Family Medicine 01/13/23 documented as of this encounter
--- OUTSIDE RECORDS SUMMARY | 2025-06-03 09:04 | XMS_ITS | Encounter Summary ---
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 Name Role Phone Neris Rodriguez MD Primary Care Provider [phone] Neris Rodriguez MD Unavailable [phone] Cecilia Mccauley TEACHING PASTOR Primary Care Provider [phone] Encounter Details Date Type Department Care Team (Late st Contact Info) Description 06/10/2019 Procedure Pass [facility] Endoscopy Admitting Dept Virtual Department [address] [place] [address] Social History Tobacco Use Types Packs/Day Years [...] on filedocumented in this encounter Care Teams Department Store Door Greeter Relationship Specialty Start Date End Date Neris Rodriguez MD [address] [place] [address] PCP - General 06/30/17 10/26/24 Cecilia Mccauley NP [address] [place] [id number] PCP - General Nurse Practitioner 10/27/24 Neris Rodriguez MD [address] [place] [address] [email or web address] Insurance Assigned Provider 05/22/19 07/22/20 documented as of this encounter Additional Source Comments The information contained in this document represents components of the legal health record. It is not the complete legal health record.[facility]
--- OUTSIDE RECORDS SUMMARY | 2025-06-03 09:04 | XMS_ITS | Clinical Summary ---
Author Organization [facility] Address [address] [place] [address] Phone Care Team Providers Care Lighthouse Keeper Name Role Phone Cecilia Mccauley REGIONAL LOSS PREVENTION MANAGER Primary Care Provider [phone] Allergies No known active allergies Medications lisinopril (PRINIVIL,ZESTRI L) 20 MG tablet Take 20 mg by mouth daily. Active meloxicam (MOBIC) 7.5 MG tablet Take 7.5 mg by mouth daily. Active Social History Tobacco Use Types Packs/Day Years Used Date Smoking Tobacco: Every Day Cigarettes Cigars Smokeless Tobacco: Never Tobacco Cessation:Ready to Q uit: No; Counseling Given: Yes Alcohol Use Standard Drinks/Week Comments Yes 12 (1 standard drink = 0.6 oz pu re alcohol) Education Answer Date Recorded Are you interested in more education? Not on tanya e 01/10/2023 Are you concerned about learning? Not on file 01/10/2023 No 01/10/2023 No 01/10/2023 Digital Access Answer Date Recorded No 02/08/2023 No 02/08/2023 No 02/08/2023 Reliable internet access at home? Not on file 02/08/2023 Device with a working camera? Not on file Sex and Gender Information Value Date Recorded Sex Assigned at Not on file Legal Sex Male 9:54 PM EDT Gender Identity Not on file Sexual Orientation Not on file Last Filed Vital Signs Vital Sign Reading Time Taken Comments Blood Pressure 122/70 04/11/2020 9:08 AM EDT Pulse 72 06/10/2019 12:30 PM EDT Temperature 36.2 C (97.2 F) 06/10/2019 12:15 PM EDT Respiratory Rate 18 06/10/2019 12:30 PM EDT Oxygen Saturation 97% 06/10/2019 12:30 PM EDT Inhaled Oxygen Concentration - - Weight 70.9 kg (156 lb 6.4 oz) 04/11/2020 9:08 A M EDT Height 177.8 cm (5' 10 ) 04/11/2020 9:08 AM EDT Body Mass Index 22.44 04/11/2020 9:08 AM EDT Plan of Treatment Health Maintenance Due Date Last Done Comments CREATININE LEVEL 1955 POTASSIUM LEVEL 1955 DEPRESSION SCREENING 1968 SMOKING Hx and SMOKELESS TOBACCO SCREENING 1969 HEPATITIS C SCREENING 1974 PNEUMOCOCCAL VACCINES (50+ years) (1 of 2 - PCV) 1975 COLOGUARD 2001 FIT TEST 2001 FOBT 2001 SIGMOIDOSCOPY 2001 VIRTUAL COLONOSCOPY 2001 ZOSTER VACCINES (1 of 2) 2006 INFLUENZA VACCINE (#1) 2025 0, 06/21/2019 COVID-19 VACCINE (3 - 2024-2 6 season) 2025 02/01/2021, 01/04/2021 LIPID PANEL 03/28/2027 03/28/2022, 03/23/2019 COLONOSCOPY 06/10/2029 06/10/2019 COLORECTAL CANCER SCREENING 06/10/2029 Adult Td,Tdap Booster 07/06/2030 07/06/2020 , 02/22/2010 RSV VACCINE (1 - 1-dose 75+ series) 2031 ABDOMINAL AORTIC ANEURYSM (AAA) SCREENING Completed 10/27/2024 HEPATITIS A VACCINES Aged Out No long er eligible based on patient's age to complete this topic HIB VACCINES Aged Out No longer eligi ble based on patient's age to complete this topic MENINGOCOCCAL VACCINES (ACWY) Aged Out No longer eligible based on patient's age to complete this topic MENINGOCOCCAL VACCINES (B) Aged Out N o longer eligible based on patient's age to complete this topic Medical Devices Not on file Procedures Procedure Name Priority Date/Time Associated Diagnosis Comments CT ABDOMEN/PELVIS (UROGRAM) WITH AND WITHOUT CONTRAST Routine 10/27/2024 3:27 PM EST Gross hematuria ENDOSCOPY, COLON 06/10/2019 11:5 2 AM EDT from Last 3 Months or Most Recently Relevant to Health Maintenance Results * CT ABDOMEN/PELVIS (UROGRAM) WITH AND WITHOUT CONTRAST (10/27/2024 3:27 PM EST) Anatomical Region Laterality Modality Abdomen, Pelvis Computed Tomogra phy 11/01/2024 11:3 7 AM EST Impressions 11/01/2024 11:47 AM EST 1. No significant urinary tract abnormality identified. Non-opacification of the majority of the right ureter but without ancillary evidence of obstruction. Retrograde studies could be considered for further evaluation of hematuria if felt to be clinically warranted. Narrative 11/01/2024 11:[address] ABDOMEN/PELVIS (UROGRAM) WITH AND WITHOUT CONTRAST Referring clinician's provided indication for this examination in Epic: Outside Radiology Order; NKA, NO ASTHMA, NO DM TECHNIQUE: Multidetector-row CT of the abdomen and pelvis was performed before and after administration of intravenous contrast using tailored dose modulation techniques. Images were reconstructed in the axial, coronal, and sagittal planes. COMPARISON: None FINDINGS: Lower Chest: No focal airspace infiltrate or pleural effusion. Right lower lobe subpleural opacities may reflect chronic atelectasis or scarring with minimal associated traction bronchiectasis. Liver: 7 mm right hepatic lobe cyst. No hepatomegaly or additional space- occupying lesion. Biliary: No evidence of biliary obstruction. Spleen: No splenomegaly or focal parenchymal lesion. Pancreas: No parenchymal mass, duct dilatation, or peripancreatic inflammatory infiltration demonstrated. Adrenal Glands: No nodules. Kidneys/Ureters: No parenchymal mass, hydronephrosis, nephrolithiasis, or perirenal stranding. Small left renal parapelvic cyst. Mild left ureteral kinking without luminal distention. Additional delayed prone imaging was performed without opacification of the right mid or distal ureter. Right proximal ureter enhances similar to the left and is not distended. Pelvic Organs/Bladder: No free fluid or mass. No bladder calculi or intravesicular mass lesions noted. Evidence of prior prostatectomy and radiation seed placement. Small right inguinal hernia containing a knuckle of nonobstructed bowel. Bowel: No evidence of small bowel obstruction or paracolic inflammatory infiltration. Peritoneum/Retroperitoneum: No free fluid or mass. Lymph Nodes: No pathologically enlarged mesenteric, para-aortic, iliac chain, or inguinal nodes identified. Vessels: Aortoiliac atherosclerotic plaquing and tortuosity. No focal aneurysm. Plaquing near the origins of the SMA and celiac axis without kelsea obstruction. Main portal vein grossly patent. Bones/Soft Tissues: Prominent right convex lumbar scoliotic curvature with diffuse degenerative disc changes. Extensive degenerative sub-endplate vertebral body sclerosis and degenerative facet arthropathy without lytic lesion identified. Procedure Note Tavo Cannon MD - 11/01/2024 CT ABDOMEN/PELVIS (UROGRAM) WITH AND WITHOUT CONTRAST Referring clinician's provided indication for this examination in Epic:Outside Radiology Order; NKA, NO ASTHMA, NO DM TECHNIQUE: Multidetector-row CT of the abdomen and pelvis was performedbefore and after administration of intravenous contrast using tailoreddose modulation techniques. Images were reconstructed in the axial,coronal, and sagittal planes. COMPARISON: None FINDINGS: Lower Chest: No focal airspace infiltrate or pleural effusion. Right lowerlobe subpleural opacities may reflect chronic atelectasis or scarring withminimal associated traction bronchiectasis. Liver: 7 mm right hepatic lobe cyst. No hepatomegaly or additionalspace- occupying lesion. Biliary: No evidence of biliary obstruction. Spleen: No splenomegaly or focal parenchymal lesion. Pancreas: No parenchymal mass, duct dilatation, or peripancreaticinflammatory infiltration demonstrated. Adrenal Glands: No nodules. Kidneys/Ureters: No parenchymal mass, hydronephrosis, nephrolithiasis, orperirenal stranding. Small left renal parapelvic cyst. Mild left ureteralkinking without luminal distention. Additional delayed prone imaging wasperformed without opacification of the right mid or distal ureter. Rightproximal ureter enhances similar to the left and is not distended. Pelvic Organs/Bladder: No free fluid or mass. No bladder calculi orintravesicular mass lesions noted. Evidence of prior prostatectomy andradiation seed placement. Small right inguinal hernia containing a knuckleof nonobstructed bowel. Bowel: No evidence of small bowel obstruction or paracolic inflammatoryinfiltration. Peritoneum/Retroperitoneum: No free fluid or mass. Lymph Nodes: No pathologically enlarged mesenteric, para-aortic, iliacchain, or inguinal nodes identified. Vessels: Aortoiliac atherosclerotic plaquing and tortuosity. No focalaneurysm. Plaquing near the origins of the SMA and celiac axis withoutfrank obstruction. Main portal vein grossly patent. Bones/Soft Tissues: Prominent right convex lumbar scoliotic curvature withdiffuse degenerative disc changes. Extensive degenerative sub-endplatevertebral body sclerosis and degenerative facet arthropathy without lyticlesion identified. IMPRESSION: 1. No significant urinary tract abnormality identified. Non-opacificationof the majority of the right ureter but without ancillary evidence ofobstruction. Retrograde studies could be considered for further evaluationof hematuria if felt to be clinically warranted. us Eliza Salvador MD IMG CT ABD/PELVIS Fi nal Result * ENDOSCOPY, COLON (06/10/2019 11:52 AM EDT) Narrative Transcriptions Schuyler Irwin MD - 06/10/2019 11:52 AM EDT Patient Name: Chong Best Attending MD:: SCHUYLER IRWIN MD Procedure Date: 06/10/2019 11:52 AM Date of : 1955 Age: 64 Admit Type: Outpatient Gender: Male Room: [place] [address] Referring MD: Stephanie Rodriguez MD Exam Type: Colonoscopy Indications: High risk colon cancer surveillance: Personal historyof colonic polyps, Last colonoscopy: 2015 Medications: Monitored Anesthesia Care Procedure: Informed consent was obtained from the patient after discussion of the indications, limitations,alternatives, benefits, and risks of the procedure. Risksspecifically discussed include but are not limited to medication reactions, missed lesions, bleeding, perforation, orthe need for emergent surgery. Throughout the procedure, the patient's blood pressure, pulse, end-tidal CO2, and oxygen saturations were monitored continuously. The Olympus adult variable colonoscope [id number] #1 was introduced through the anus and advanced to theterminal ileum. The colonoscopy was performed withoutdifficulty. The patient tolerated the procedure well. The qualityof the bowel preparation was good. Complications: No immediate complications. Estimated blood loss:None. Findings: The perianal and digital rectal examinations werenormal. Multiple small and large-mouthed diverticula were foundin the sigmoid colon, descending colon and ascendingcolon. The rectum, recto-sigmoid colon, splenic flexure, transverse colon, hepatic flexure, ascending colon,cecum, appendiceal orifice, ileocecal valve, ileum, rectum (on retroflexion) and ascending colon (on retroflexion) appeared normal. Impression: - Diverticulosis in the sigmoid colon, in thedescending colon and in the ascending colon. - The rectum, recto-sigmoid colon, splenic flexure, transverse colon, hepatic flexure, ascending colon,cecum, appendiceal orifice, ileocecal valve and terminal ileum are normal. - No specimens collected. Recommendation: - Discharge patient to home. - High fiber diet. - Continue present medications. - Repeat colonoscopy in 5 years for surveillance. - You have diverticulosis so please eat a high fiberdiet. SCHUYLER IRWIN MD 06/10/2019 12:15:15 PM This report has been signed electronically. Number of Addenda: 0 Note Initiated On: 06/10/2019 11:52 AM Procedure Code(s): --- Professional --- 21948, Colonoscopy, flexible; diagnostic, including collection of specimen(s) by brushing or washing, when performed (separateprocedure) --- Technical --- 66987, Colonoscopy, flexible; diagnostic, including collection of specimen(s) by brushing or washing, when performed (separateprocedure) Diagnosis Code(s): --- Professional --- Z86.010, Personal history of colonic polyps K57.30, Diverticulosis of large intestine without perforation orabscess without bleeding --- Technical --- Z86.010, Personal history of colonic polyps K57.30, Diverticulosis of large intestine without perforation orabscess without bleeding CPT copyright 2018 [employer]. All rights reserved. The codes documented in this report are preliminary and upon flooring sales manager reviewmay be revised to meet current compliance requirements. [address] [place] [address] Neris Rodriguez MD GI PROCEDURE ORDERABLES Final Result from Last 3 Months or Most Recently Relevant to Health Maintenance Insurance MEDICARE REPLACEMENT MEDICARE REPLACEMENT MEDICARE REPLACEMENT MEDICARE REPLACEMENT MEDICARE REPLACEMENT MEDICARE REPLACEMENT Care Teams Lighthouse Keeper Relationship Specialty Start Date End Date Cecilia Mccauley NP [address] [place] [id number] PCP - General Nurse Practitioner 10/27/24 Additional Source Comments The information contained in this document represents components of the legal health record. It is not the complete legal health record.[facility]
--- OUTSIDE RECORDS SUMMARY | 2025-06-03 09:04 | XMS_ITS | Clinical Summary ---
Author Organization [address] [place] [address] [place] [address] Phone Care Team Providers Care Wrap Knitting Machine Operator Name Role Phone Cecilia Mccauley JERMAINE Primary Care Provider [phone] Social History Tobacco Use Types Packs/Day Years [...] Zoster Vaccines (2 of 2) 02/23/2024 12/29/2023 Depression Screening 09/15/2024 Abdominal Aortic Aneurysm (AAA) Screen 10/29/2024 Falls Risk Assessment 10/29/2024 Hepatitis C Screening 10/29/2024 Medicare Annual Wellness Visit 10/29/2024 Social Influencers of Health Screening 10/29/2024 Hypertension/CHF/CAD Annual BMP Blood Test 11/04/2024 COVID-19 Vaccine ( season) 2025 02/01/2021, 01/04/2021 Influenza Vaccine (#1) 2025 4, 12/09/2023, 07/30/2022, [...] topic Insurance [employer] MEDICARE Care Teams Wrap Knitting Machine Operator Relationship Specialty Start Date End Date Cecilia Mccauley FNP [address] [place] [address] PCP - General Family Medicine 11/04/24
--- OUTSIDE RECORDS SUMMARY | 2025-06-03 09:04 | XMS_ITS | Encounter Summary ---
Author Organization [facility] Address [address] [place] [id number] Phone Care Team Providers Care Coverage Specialist Name Role Phone Neris Rodriguez MD Primary Care Provider [phone] Neris Rodriguez MD Unavailable [phone] Cecilia Mccauley MICA MINER BLASTING Primary Care Provider [phone] Encounter Details Date Type Department Care Team (Late st Contact Info) Description 2019 Transcribe Orders [facility] [address] [address] Neris Rodriguez MD [address] [place] [address] [email or web address] Social History Tobacco Use Types Packs/Day Years [...] on filedocumented in this encounter Care Teams Coverage Specialist Relationship Specialty Start Date End Date Neris Rodriguez MD [address] [place] [address] [email or web address] PCP - General 06/30/17 10/26/24 Cecilia Mccauley NP [address] [place] [id number] PCP - General Nurse Practitioner 10/27/24 Neris Rodriguez MD [address] [place] [address] [email or web address] Insurance Assigned Provider 05/22/19 07/22/20 documented as of this encounter Additional Source Comments The information contained in this document represents components of the legal health record. It is not the complete legal health record.[facility]
--- OUTSIDE RECORDS SUMMARY | 2025-06-03 09:04 | XMS_ITS | Encounter Summary ---
Author Organization [facility] Address [address] [place] [address] [place] [address] Phone Care Team Providers Care Customer Services Coordinator Name Role Phone Neris Rodriguez MD Primary Care Provider [phone] Neris Rodriguez MD Unavailable [phone] Cecilia Mccauley FUR OPERATOR Primary Care Provider [phone] Encounter Details Date Type Department Care Team (Latest Contact Info) Description 04/04/2020 Transcribe Orders Virtual Department [address] [place] [address] Alla Coon, FUR OPERATOR [address] [place], [place] [id number] Acute right-sided thoracic back pain (Primary Dx) Social History Tobacco Use Types Packs/Day Years [...] on file documented as of this encounter Results * XR THORACIC SPINE 3 VIEW (04/10/2020 11:36 AM EDT) Anatomical Region Laterality Modality T-spine Computed Radiogr aphy 04/10/2020 11:5 8 AM EDT Impressions 04/10/2020 12:08 PM EDT 1. Thoracic spine: Multilevel degenerative changes. No evidence of acute compression fractures. Clinical follow-up recommended. 2. Lumbar spine: No findings suspicious for acute compression fractures. Multilevel severe degenerative disc and endplate changes. Scoliosis. POS - [id number] Narrative 04/10/2020 12:08 PM EDT HISTORY: Acute right-sided pain. COMPARISON: None. VIEWS: AP, lateral and swimmer's lateral views of the thoracic spine and AP, lateral and bilateral oblique views of the lumbar spine. FINDINGS: Thoracic spine: No evidence of acute compression fractures or subluxations. Bridging anterolateral osteophytes with disc space narrowing and sclerotic degenerative endplate changes at multiple levels. Lumbar spine: Evidence of a moderate curvature of the lumbar spine with convexity to the to the right. There is a rotary component. No evidence of acute compression fractures. Mild wedging of multiple vertebral bodies, likely physiologic. Multilevel severe disc space narrowing and sclerotic degenerative endplate changes. Vacuum disc phenomenon at L2-L3 and L3-L4. No subluxations. Multilevel bilateral facet arthropathy which appears moderate in the lower levels. Procedure Note Schuyler Murray MD - 04/10/2020 HISTORY: Acute right-sided pain. COMPARISON: None. VIEWS: AP, lateral and swimmer's lateral views of the thoracic spine andAP, lateral and bilateral oblique views of the lumbar spine. FINDINGS: Thoracic spine: No evidence of acute compression fractures orsubluxations. Bridging anterolateral osteophytes with disc space narrowingand sclerotic degenerative endplate changes at multiple levels. Lumbar spine: Evidence of a moderate curvature of the lumbar spine withconvexity to the to the right. There is a rotary component. No evidence ofacute compression fractures. Mild wedging of multiple vertebral bodies,likely physiologic. Multilevel severe disc space narrowing and scleroticdegenerative endplate changes. Vacuum disc phenomenon at L2-L3 and L3-L4.No subluxations. Multilevel bilateral facet arthropathy which appearsmoderate in the lower levels. IMPRESSION: 1. Thoracic spine: Multilevel degenerative changes. No evidence of acutecompression fractures. Clinical follow-up recommended. 2. Lumbar spine: No findings suspicious for acute compression fractures.Multilevel severe degenerative disc and endplate changes. Scoliosis. POS - [id number] us Alla Coon FUR OPERATOR IMG XR SPINE Final Re sult * XR LUMBOSACRAL SPINE 4 OR MORE VIEWS (04/10/2020 11:36 AM EDT) Anatomical Region Laterality Modality L-spine Computed Radiogr aphy 04/10/2020 11:5 8 AM EDT Impressions 04/10/2020 12:08 PM EDT 1. Thoracic spine: Multilevel degenerative changes. No evidence of acute compression fractures. Clinical follow-up recommended. 2. Lumbar spine: No findings suspicious for acute compression fractures. Multilevel severe degenerative disc and endplate changes. Scoliosis. POS - [id number] Narrative 04/10/2020 12:08 PM EDT HISTORY: Acute right-sided pain. COMPARISON: None. VIEWS: AP, lateral and swimmer's lateral views of the thoracic spine and AP, lateral and bilateral oblique views of the lumbar spine. FINDINGS: Thoracic spine: No evidence of acute compression fractures or subluxations. Bridging anterolateral osteophytes with disc space narrowing and sclerotic degenerative endplate changes at multiple levels. Lumbar spine: Evidence of a moderate curvature of the lumbar spine with convexity to the to the right. There is a rotary component. No evidence of acute compression fractures. Mild wedging of multiple vertebral bodies, likely physiologic. Multilevel severe disc space narrowing and sclerotic degenerative endplate changes. Vacuum disc phenomenon at L2-L3 and L3-L4. No subluxations. Multilevel bilateral facet arthropathy which appears moderate in the lower levels. Procedure Note Schuyler Murray MD - 04/10/2020 HISTORY: Acute right-sided pain. COMPARISON: None. VIEWS: AP, lateral and swimmer's lateral views of the thoracic spine andAP, lateral and bilateral oblique views of the lumbar spine. FINDINGS: Thoracic spine: No evidence of acute compression fractures orsubluxations. Bridging anterolateral osteophytes with disc space narrowingand sclerotic degenerative endplate changes at multiple levels. Lumbar spine: Evidence of a moderate curvature of the lumbar spine withconvexity to the to the right. There is a rotary component. No evidence ofacute compression fractures. Mild wedging of multiple vertebral bodies,likely physiologic. Multilevel severe disc space narrowing and scleroticdegenerative endplate changes. Vacuum disc phenomenon at L2-L3 and L3-L4.No subluxations. Multilevel bilateral facet arthropathy which appearsmoderate in the lower levels. IMPRESSION: 1. Thoracic spine: Multilevel degenerative changes. No evidence of acutecompression fractures. Clinical follow-up recommended. 2. Lumbar spine: No findings suspicious for acute compression fractures.Multilevel severe degenerative disc and endplate changes. Scoliosis. POS - [id number] us Alla Coon FUR OPERATOR IMG XR SPINE Final Re sult documented in this encounter Visit Diagnoses Diagnosis Acute right-sided thoracic back pain- Primary Acute right-sided thoracic back pain Acute right-sided thoracic back pain documented in this encounter Care Teams Customer Services Coordinator Relationship Specialty Start Date End Date Neris Rodriguez MD [address] [place] [address] PCP - General 06/30/17 10/26/24 Cecilia Mccauley NP [address] [place] [address] PCP - General Nurse Practitioner 10/27/24 Neris Rodriguez MD [address] [place] [address] Insurance Assigned Provider 05/22/19 07/22/20 documented as of this encounter Additional Source Comments The information contained in this document represents components of the legal health record. It is not the complete legal health record.[facility]
--- OUTSIDE RECORDS SUMMARY | 2025-06-03 09:04 | XMS_ITS | Encounter Summary ---
Author Organization [facility] Address [address] [place] [address] [place] [address] Phone Care Team Providers Care Electrical Sign Wirer Helper Name Role Phone Neris Rodriguez MD Primary Care Provider [phone] Cecilia Mccauley NP Primary Care Provider [phone] Encounter Details Date Type Department Care Team (Late st Contact Info) Description 10/15/2024 Procedure Pass [facility], Ct Scan - [facility] [address] [place] [address] Social History Tobacco Use Types Packs/Day Years [...] on filedocumented in this encounter Care Teams Electrical Sign Wirer Helper Relationship Specialty Start Date End Date Neris Rodriguez MD [address] [place] [address] [email or web address] PCP - General 06/30/17 10/26/24 Cecilia Mccauley NP [address] [place] [address] PCP - General Nurse Practitioner 10/27/24 documented as of this encounter Additional Source Comments The information contained in this document represents components of the legal health record. It is not the complete legal health record.[facility]
--- OUTSIDE RECORDS SUMMARY | 2025-06-03 09:04 | XMS_ITS | Clinical Summary ---
Author Organization [employer] Address [address] [facility] 7t [place] [address] Care Team Providers Care Hydraulic Technician Name Role Phone PcpHannah Unassigned Primary Care [...] Moderna Covid-19 Vaccine 12+ 02/01/2021,01/05/20 21 Novel Eauwwiqiq-T0T0-44, all formulations 2009 TD (adult), 2 Lf [...] Zoster Vaccines (2 of 2) 02/23/2024 12/29/2023 Dental Oral Exam 05/20/2024 11/17/2023, 02/14/2023 Dental Prophylaxis 05/20/2024 11/17/2023, 04/28/2023 COVID-19 Vaccine ( season) 2025 02/01/2021, 01/04/2021 Influenza Vaccine (#1) 2025 , 12/09/2023, 07/30/2022, [...] SYSTEM 03/28/2022 6:14 AM EDT Sakina Correa GRADUATE INTERNSHIP LAB BLOOD ORDERABLES Laly l Result [facility] [address] * -Colonoscopy (02/07/2016 9:27 AM EDT) [...] Most Recently Relevant to Health Maintenance Insurance [facility] MEDICARE ADVANTAGE HMO GENERIC DENTAL [employer] MEDICARE ADVANTAGE HMO [place] Care Teams Hydraulic Technician Relationship Specialty Start Date End Date PcpHannah Unassigned PCP - General Family Medicine 01/13/23
== END 2025-06-03 09:54 | disposition home or self-care (01) ==
LOC: HO.HMCFM 08:30
PROVIDERS: PCP Nurse Practitioner Family; Visit Provider Nurse Practitioner Family
DX: I10 Essential (primary) hypertension (principal); I49.9 Cardiac arrhythmia, unspecified; R06.02 Shortness of breath

== ENCOUNTER → 2025-06-15 07:42 | Outpatient (REF) | payer MEDICARE, SELFPAY ==
--- NOTE | ~2025-06-15 | NM_ITS ---
EXAMINATION: TC-PYP CARDIAC STUDY CLINICAL INFORMATION: Evaluation for cardiac amyloidosis. 70 years old Male with cardiomyopathy COMPARISON None available. TECHNIQUE: 25 mCi of Tc-99m pyrophosphate was injected intravenously. Planar images of the chest were obtained in the anterior and left lateral views at 3 hours. SPECT-CT images of the chest were also obtained. Images were obtained with CT attenuation. Total DLP 55 mGy-cm. FINDINGS: 1. Image Quality: Adequate 2. Semi-quantitative visual scoring of the cardiac uptake is performed as follows: 0 = absent cardiac uptake and intense bone uptake 3. H-CL Ratio if Applicable: Not applicable 4. Ancillary Finds: Calcific changes noted on coronary arteries especially in RCA distribution NM/NM PYP Card Amyld SPECT w CT IMPRESSION: 1. No evidence of myocardial uptake suggestive of amyloidosis especially ATTR type 2. Please note that the Tc-99m PYP is more sensitive in detecting transthyretin-related cardiac amyloidosis than that of light-chain cardiac amyloidosis. Electronically signed by: Jeison Rankin MD 06/20/2025 01:59 PM EDT
--- NOTE | 2025-06-15 07:45 | HM_ITS ---
Conclusion: 1. Patient was monitored for total period of 2 days and 22 hours 2. Baseline was normal sinus rhythm with average heart of 67 beats per minute 3. Frequent PACs noted with total burden of 2.94% with 23 short runs of SVE, longest lasting 10 beats at 160 beats per minute consistent with SVT 4. Frequent PVCs noted with total burden of 8.7% with frequent episodes of nonsustained VT most of which are 3-4 beats, longest lasting 8 beats at 156 beats per minute 5. No significant pauses noted 6. Patient marked the counter 2 times correlating with PVCs MTDD
--- OUTSIDE RECORDS SUMMARY | 2025-06-15 07:45 | XMS_ITS | Encounter Summary ---
Author Organization [facility] Address [address] [place] [address] [place] [address] Phone Care Team Providers Care Automotive Lube Technician Name Role Phone Neris Rodriguez MD Primary Care Provider [phone] Neris Rodriguez MD Unavailable [phone] Cecilia Mccauley PROCESS DESIGNER Primary Care Provider [phone] Encounter Details Date Type Department Care Team (Latest Contact Info) Description 04/04/2020 Transcribe Orders Virtual Department 30 [place] [address] Alla Coon, PROCESS DESIGNER [address] [place], [place] [id number] Acute right-sided thoracic back pain (Primary Dx) [...] disc and endplate changes. Scoliosis. POS - [id number] Narrative 04/10/2020 12:08 PM EDT HISTORY: Acute [...] disc and endplate changes. Scoliosis. POS - [id number] us Alla Coon PROCESS DESIGNER IMG XR SPINE Final Re sult * [...] disc and endplate changes. Scoliosis. POS - [id number] Narrative 04/10/2020 12:08 PM EDT HISTORY: Acute [...] disc and endplate changes. Scoliosis. POS - [id number] us Alla Coon PROCESS DESIGNER IMG XR SPINE Final Re sult documented in this encounter Visit Diagnoses Diagnosis Acute right-sided thoracic back pain- Primary Acute right-sided thoracic back pain Acute right-sided thoracic back pain documented in this encounter Care Teams Automotive Lube Technician Relationship Specialty Start Date End Date Neris Rodriguez MD [address] [place] [address] PCP - General 06/30/17 10/26/24 Cecilia Mccauley NP [address] [place] [address] PCP - General Nurse Practitioner 10/27/24 Neris Rodriguez MD [address] [place] [address] Insurance Assigned Provider 05/22/19 07/22/20 documented as of this encounter Additional Source Comments The information contained in this document represents components of the legal health record. It is not the complete legal health record.[facility]
--- OUTSIDE RECORDS SUMMARY | 2025-06-15 07:45 | XMS_ITS | Clinical Summary ---
Author Organization [employer] Address 75 [facility] 7t [place] [address] Care Team Providers Care Catalogue Maker Name Role Phone PcpHannah Unassigned Primary [...] Problem Noted Date Diagnosed Date Prostate cancer (CMS/HCC) 08/26/2022 Pain in wrist 08/26/2022 Muscle spasm [...] Moderna Covid-19 Vaccine 12+ 02/01/2021,01/05/20 21 Novel Ngrjgbekt-G0C0-07, all formulations 2009 TD (adult), 2 Lf [...] the past 12 months, has t he [employer], gas, oil or water company threatened to [...] Mouth 02/15/2026 02/14/2023 Lipid Panel 03/28/2027 03/28/2022, 0503/2022, 01/05/2021 DTaP/Tdap/Td Vaccines (3 - Td or [...] LAB SYSTEM HDL CHOL 61 (>39) MG/DL [facility] NON HDL CHOLESTEROL (CALC) 94 (<160) MG/DL [facility] TRIGLYCERIDE 52 (<150) MG/DL [facility] 03/28/2022 6:14 AM EDT Sakina Correa DOG BATHER LAB BLOOD ORDERABLES Laly cameron Result [facility] [address] * -Colonoscopy (02/07/2016 9:27 AM EDT) [...] Most Recently Relevant to Health Maintenance Insurance [employer] MEDICARE ADVANTAGE HMO GENERIC DENTAL [employer] MEDICARE ADVANTAGE HMO [place] Care Teams Catalogue Maker Relationship Specialty Start Date End Date PcpHannah Unassigned PCP - General Family Medicine 01/13/23
--- OUTSIDE RECORDS SUMMARY | 2025-06-15 07:45 | XMS_ITS | Encounter Summary ---
Author Organization [facility] Address [address] [place] [address] Phone Care Team Providers Care Hydrography Teacher Name Role Phone Neris Rodriguez MD Primary Care Provider Neris Rodriguez MD Unavailable [phone] Cecilia Mccauley SENIOR CONTRACTS MANAGER Primary Care Provider [phone] Encounter Details Date Type Department Care Team (Late st Contact Info) Description 06/10/2019 Procedure Pass [facility] Endoscopy Admitting Dept Virtual Department 30 [place] [address] Social History Tobacco Use Types Packs/Day Years [...] on filedocumented in this encounter Care Teams Hydrography Teacher Relationship Specialty Start Date End Date Neris Rodriguez MD [address] [place] [address] PCP - General 06/30/17 10/26/24 Cecilia Mccauley NP [address] [place] [address] PCP - General Nurse Practitioner 10/27/24 Neris Rodriguez MD [address] [place] [address] [email or web address] Insurance Assigned Provider 05/22/19 07/22/20 documented as of this encounter Additional Source Comments The information contained in this document represents components of the legal health record. It is not the complete legal health record.[facility]
--- OUTSIDE RECORDS SUMMARY | 2025-06-15 07:45 | XMS_ITS | Encounter Summary ---
Author Organization [employer] Address [address] [place] [address] [place] [address] Care Team Providers Care Motorbike Courier Name Role Phone Sakina Correa Primary Care Provider Un available PcpHannah Unassigned Primary Care Provider U navailable Encounter Details Date Type Department Care Team (Late st Contact Info) Description 08/26/2022 Orders Only Hannah [facility] [address] [place] [address] Gissel Reardon [place] Social History Tobacco Use [...] on filedocumented in this encounter Care Teams Motorbike Courier Relationship Specialty Start Date End Date Sakina Correa FNP PCP - General Family Medicine 08/20/22 12/25/22 Pcp, [place] Unassigned PCP - General Family Medicine 01/13/23 documented as of this encounter
--- OUTSIDE RECORDS SUMMARY | 2025-06-15 07:45 | XMS_ITS | Clinical Summary ---
Author Organization [facility] Address [address] [facility] [address] [place] [address] Phone Care Team Providers Care Service Promoter Salesperson Name Role Phone Cecilia Mccauley RURAL MAIL CARRIER Primary Care Provider [phone] Allergies No known active allergies Medications lisinopril [...] 63 Admit Type: Outpatient Gender: Male Room: [place] [address] Referring MD: Stephanie Rodriguez MD Exam Type: [...] monitored continuously. The Olympus adult variable colonoscope [id number] #1 was introduced through the anus and [...] 11:52 AM Procedure Code(s): --- Professional --- 90393, Colonoscopy, flexible; diagnostic, including collection of specimen(s) by brushing or washing, when performed (separateprocedure) --- Technical --- 60992, Colonoscopy, flexible; diagnostic, including collection of specimen(s) by brushing or washing, when performed (separateprocedure) Diagnosis Code(s): --- Professional --- Z86.010, Personal history of colonic polyps K57.30, Diverticulosis of large intestine without perforation orabscess without bleeding --- Technical --- Z86.010, Personal history of colonic polyps K57.30, Diverticulosis of large intestine without perforation orabscess without bleeding CPT copyright 2018 [employer]. All rights reserved. The codes documented in this report are preliminary and upon fiction writer reviewmay be revised to meet current compliance requirements. 30 [place] [address] Neris Rodriguez MD GI PROCEDURE ORDERABLES Final Result from Last 3 Months or Most Recently Relevant to Health Maintenance Insurance MEDICARE REPLACEMENT MEDICARE REPLACEMENT MEDICARE REPLACEMENT MEDICARE REPLACEMENT MEDICARE REPLACEMENT MEDICARE REPLACEMENT Care Teams Service Promoter Salesperson Relationship Specialty Start Date End Date Cecilia Mccauley NP [address] [place] [address] PCP - General Nurse Practitioner 10/27/24 Additional Source Comments The information contained in this document represents components of the legal health record. It is not the complete legal health record.[facility]
--- OUTSIDE RECORDS SUMMARY | 2025-06-15 07:45 | XMS_ITS | Clinical Summary ---
Author Organization [address] [place] [address] [place] [address] Phone Care Team Providers Care Laborer Pipeline Name Role Phone Cecilia Mccauley JERMAINE Primary Care Provider [phone] Social History Tobacco Use Types Packs/Day Years [...] topic Insurance [employer] MEDICARE Care Teams Laborer Pipeline Relationship Specialty Start Date End Date Cecilia Mccauley FNP [address] [place] [address] PCP - General Family Medicine 11/04/24
--- OUTSIDE RECORDS SUMMARY | 2025-06-15 07:45 | XMS_ITS | Encounter Summary ---
Author Organization [facility] Address [address] [place] [address] [place] [address] Phone Care Team Providers Care Guide Winder Name Role Phone Neris Rodriguez MD Primary Care Provider [phone] Cecilia Mccauley NP Primary Care Provider [phone] Encounter Details Date Type Department Care Team (Late st Contact Info) Description 10/15/2024 Procedure Pass [facility], Ct Scan - [facility] [address] [place] [address] Social History Tobacco Use Types Packs/Day Years [...] on filedocumented in this encounter Care Teams Guide Winder Relationship Specialty Start Date End Date Neris Rodriguez MD [address] [place] [address] [email or web address] PCP - General 06/30/17 10/26/24 Cecilia Mccauley NP [address] [place] [address] PCP - General Nurse Practitioner 10/27/24 documented as of this encounter Additional Source Comments The information contained in this document represents components of the legal health record. It is not the complete legal health record.[facility]
--- OUTSIDE RECORDS SUMMARY | 2025-06-15 07:45 | XMS_ITS | Encounter Summary ---
Author Organization [facility] Address [address] [place] [address] Phone Care Team Providers Care Coach Operator Name Role Phone Neris Rodriguez MD Primary Care Provider Neris Rodriguez MD Unavailable [phone] Cecilia Mccauley BRICK TENDER Primary Care Provider [phone] Encounter Details Date Type Department Care Team (Late st Contact Info) Description 2019 Transcribe Orders [facility] [address] [address] Neris Rodriguez MD [address] [place] [address] Social History Tobacco Use Types Packs/Day Years [...] on filedocumented in this encounter Care Teams Coach Operator Relationship Specialty Start Date End Date Neris Rodriguez MD [address] [place] [address] PCP - General 06/30/17 10/26/24 Cecilia Mccauley NP [address] [place] [id number] PCP - General Nurse Practitioner 10/27/24 Neris Rodriguez MD [address] [place] [address] [email or web address] Insurance Assigned Provider 05/22/19 07/22/20 documented as of this encounter Additional Source Comments The information contained in this document represents components of the legal health record. It is not the complete legal health record.[facility]
== END ==
LOC: HO.CARD 07:42
PROVIDERS: Visit Provider Internal Medicine
DX: I49.3 Ventricular premature depolarization (principal); E85.4 Organ-limited amyloidosis; I43 Cardiomyopathy in diseases classified elsewhere
CPT/HCPCS: 78830; 93242; A9538

== ENCOUNTER → 2025-06-15 07:55 | Outpatient (BNV) | payer MEDICARE, SELFPAY | PROVIDERS: Visit Provider Internal Medicine Cardiovascular Disease | DX: E85.4 Organ-limited amyloidosis (principal) | CPT/HCPCS: 78830 ==

== ENCOUNTER → 2025-07-13 13:48 | Outpatient (REF) | payer MEDICARE, SELFPAY ==
--- NOTE | 2025-07-13 14:05 | CA_ITS ---
Transthoracic Echocardiogram Patient (Last, First, Middle): Chong Jewell W Gender: M Date of : 1955 Age: 70 Procedure Date: 07/13/2025 Procedure Type: Transthoracic Echocardiogram Location: OP Height: 175.26 cm Weight: 68.04 kg BSA: 1.83 m2 Heart Rate: bpm BP: 120 / 59 mmHg Handstitching Machine Armhole Feller: WALTER Referring MD: Cecilia Mccauley CNP Symptoms: I49.9 - Cardiac arrhythmia, unspecified Study Quality: Adequate ECG Rhythm: Sinus Conclusions: - The left ventricular systolic function is moderately decreased. The visually estimated ejection fraction is between 35-40%. - The basal inferior and basal inferoseptal segments are akinetic. - The basal inferolateral segment is dyskinetic. - No obvious valvular pathology seen on this study. Findings Left Ventricle Normal left ventricular cavity size. The left ventricular systolic function is moderately decreased. The visually estimated ejection fraction is between 35-40%. There is severe septal and severe basal asymmetric hypertrophy. Wall Motion Rest Echo Findings The basal inferior and basal inferoseptal segments are akinetic. The basal inferolateral segment is dyskinetic. Atria The left atrium is mildly dilated. The right atrium is normal in size. Aortic Valve There is a normal trileaflet aortic valve. There is mild calcification of the aortic valve. There is no aortic valve stenosis. There is no aortic valve regurgitation. Mitral Valve There is mild anterior and posterior mitral leaflet thickening. There is mild mitral valve regurgitation. There is no mitral valve stenosis. Pulmonic Valve There is trace pulmonic valve regurgitation. Tricuspid Valve There is trace tricuspid valve regurgitation. There is no evidence of pulmonary hypertension. Great Vessels The asc aorta and aortic arch are normal in size. Venous The inferior vena cava is normal in size and collapses greater than 50% with inspiration. Pericardium/Pleural There is no evidence of pericardial effusion. Prior Study Comparison No significant change compared to prior study dated: 07/31/2023. Recommendations, Care & Conclusions No obvious valvular pathology seen on this study. Measurements 2D Linear Measurements IVSd: 0.98 0.6-0.9/0.6-1.0 cm LVIDd: 5.76 3.9-5.3/4.2-5.9 cm LVIDd Index: 3.15 2.4-3.2/2.2-3.1 cm/m2 LVIDs: 4.71 2.0-3.6 cm LVPWd: 0.89 0.7-1.1 cm LA Diam: 4.10 2.7-3.8/3.0-4.0 cm LAIDs Index: 2.24 1.5-2.3 cm/m2 LV Mass: 261.58 67-162/88-224 g LV Mass Index: 142.94 43-95/49-115 g/m2 LVOT Diam: 3.00 3.0+(-)1.3 cm 2D Systolic Function EF 4C: 48.80 >55% EF 2C: 38.00 >55% EF BiP: 47.80 >55% Mitral Valve MV Pk E: 0.53 MV PK A: 0.64 MV Decel Time: 225.00 E/A: 0.80 E'Lateral: 6.31 E'Medial: 3.70 E/E' Med: 14.20 E/E' Lat: 8.40 PHT: 66.00 MVA PHT: 3.33 Decel Pierce: 2.34 Aortic Valve AoV Pk Kem: 1.19 AoV Mn Kem: 0.86 AoV VTI: 0.23 AoV Pk Grad: 6.00 Aov Mn Grad: 3.00 AVE Cont.VTI: 3.88 LVOT LVOT Pk Kem: 0.67 LVOT Mn Kem: 0.46 LVOT VTI: 0.13 LVOT Pk Grad: 2.00 LVOT Mn Grad: 1.00 LVOT Diam: 3.00 LVOT Area: 7.07 Diastolic Function MV Pk E: 0.53 MV Pk A: 0.64 E/A: 0.80 E'Medial: 3.70 E/E' Med: 14.20 E' Laterial: 6.31 E/E' Lat: 8.40 Right Ventricle TAPSE (mm): 21.10 TVS' Kem: 14.10 Tricuspid Valve TR Pk Kem: 2.37 TR Pk Grad: 22.00 Great Vessels Aorta Sinus of Valsalva: 4.10 2.0-3.5 cm Ao Asc: 3.80 2.1-3.4 cm Ao Arch: 3.10 Pulmonary Valve PV Pk Kem: 0.83 Peak PV Grad: 3.00 TX Pk Kem: 1.83 Updated in Other Vendor System with Status of Final Christiano Crisostomo MD electronically signed on 07/14/2025 12:44:56 PM with status of Final
--- OUTSIDE RECORDS SUMMARY | 2025-07-13 17:40 | XMS_ITS | Clinical Summary ---
Author Organization [address] [place] [address] [place] [phone] Phone Care Team Providers Care Pulley Man Name Role Phone Cecilia Mccauley JERMAINE Primary Care Provider [phone] Social History Tobacco Use Types Packs/Day Years [...] topic Insurance [employer] MEDICARE Care Teams Pulley Man Relationship Specialty Start Date End Date Cecilia Mccauley FNP [address] [place] [address] PCP - General Family Medicine 11/04/24
--- OUTSIDE RECORDS SUMMARY | 2025-07-13 17:40 | XMS_ITS | Encounter Summary ---
Author Organization [facility] Address [address] [place] [address] [place] [address] Phone Care Team Providers Care Veneer Clipper Helper Name Role Phone Neris Rodriguez MD Primary Care Provider [phone] Neris Rodriguez MD Unavailable [phone] Cecilia Mccauley CLASS C TRUCK DRIVER Primary Care Provider [phone] Encounter Details Date Type Department Care Team (Latest Contact Info) Description 04/04/2020 Transcribe Orders Virtual Department [address] [place] [address] Alla oCon, CLASS C TRUCK DRIVER [address] [place], [place] [id number] Acute right-sided thoracic back pain (Primary Dx) [...] disc and endplate changes. Scoliosis. POS - [id number] Narrative 04/10/2020 12:08 PM EDT HISTORY: Acute [...] disc and endplate changes. Scoliosis. POS - [id number] us Alla Coon CLASS C TRUCK DRIVER IMG XR SPINE Final Re sult * [...] disc and endplate changes. Scoliosis. POS - [id number] Narrative 04/10/2020 12:08 PM EDT HISTORY: Acute [...] disc and endplate changes. Scoliosis. POS - [id number] us Alla Coon CLASS C TRUCK DRIVER IMG XR SPINE Final Re sult documented in this encounter Visit Diagnoses Diagnosis Acute right-sided thoracic back pain- Primary Acute right-sided thoracic back pain Acute right-sided thoracic back pain documented in this encounter Care Teams Veneer Clipper Helper Relationship Specialty Start Date End Date Neris Rodriguez MD [address] [place] [address] PCP - General 06/30/17 10/26/24 Cecilia Mccauley NP [address] [place] [address] PCP - General Nurse Practitioner 10/27/24 Neris Rodriguez MD [address] [place] [address] Insurance Assigned Provider 05/22/19 07/22/20 documented as of this encounter Additional Source Comments The information contained in this document represents components of the legal health record. It is not the complete legal health record.[facility]
--- OUTSIDE RECORDS SUMMARY | 2025-07-13 17:40 | XMS_ITS | Encounter Summary ---
Author Organization [facility] Address [address] [place] [address] Phone Care Team Providers Care Furniture Associate Name Role Phone Neris Rodriguez MD Primary Care Provider [phone] Neris Rodriguez MD Unavailable [phone] Cecilia Mccauley ARTIFICIAL GLASS EYE MAKER Primary Care Provider [phone] Encounter Details Date Type Department Care Team (Late st Contact Info) Description 06/10/2019 Procedure Pass [facility] Endoscopy Admitting Dept Virtual Department 30 [place] [address] Social History Tobacco Use Types Packs/Day Years [...] filedocumented in this encounter Care Teams Furniture Associate Relationship Specialty Start Date End Date Neris Rodriguez MD [address] [place] [address] PCP - General 06/30/17 10/26/24 Cecilia Mccauley NP [address] [place] [address] PCP - General Nurse Practitioner 10/27/24 Neris Rodriguez MD [address] [place] [address] [email or web address] Insurance Assigned Provider 05/22/19 07/22/20 documented as of this encounter Additional Source Comments The information contained in this document represents components of the legal health record. It is not the complete legal health record.[facility]
--- OUTSIDE RECORDS SUMMARY | 2025-07-13 17:40 | XMS_ITS | Encounter Summary ---
Author Organization [facility] Address [address] [place] [address] [place] [address] Phone Care Team Providers Care Stem Cutter Name Role Phone Neris Rodriguez MD Primary Care Provider [phone] Cecilia Mccauley NP Primary Care Provider [phone] Encounter Details Date Type Department Care Team (Late st Contact Info) Description 10/15/2024 Procedure Pass [facility], Ct Scan - [facility] [address] [place] [address] Social History Tobacco Use Types Packs/Day Years [...] on filedocumented in this encounter Care Teams Stem Cutter Relationship Specialty Start Date End Date Neirs Rodriguez MD [address] [place] [address] [email or web address] PCP - General 06/30/17 10/26/24 Cecilia Mccauley NP [address] [place] [address] PCP - General Nurse Practitioner 10/27/24 documented as of this encounter Additional Source Comments The information contained in this document represents components of the legal health record. It is not the complete legal health record.[facility]
--- OUTSIDE RECORDS SUMMARY | 2025-07-13 17:40 | XMS_ITS | Clinical Summary ---
Author Organization [employer] Address [address] [facility] 7t [place] [address] Care Team Providers Care Executive Creative Director Name Role Phone PcpHannah Unassigned Primary Care [...] Moderna Covid-19 Vaccine 12+ 02/01/2021,01/05/20 21 Novel Ohqxyaikp-W0P2-72, all formulations 2009 TD (adult), 2 Lf [...] the past 12 months, has t he [employer], gas, oil or water company threatened to [...] LAB SYSTEM HDL CHOL 61 (>39) MG/DL [facility] NON HDL CHOLESTEROL (CALC) 94 (<160) MG/DL [facility] TRIGLYCERIDE 52 (<150) MG/DL [facility] 03/28/2022 6:14 AM EDT Sakina Correa KITCHEN HELPER LAB BLOOD ORDERABLES Laly cameron Result [facility] [address] * -Colonoscopy (02/07/2016 9:27 AM EDT) [...] Most Recently Relevant to Health Maintenance Insurance [facility] MEDICARE ADVANTAGE HMO GENERIC DENTAL [facility] MEDICARE ADVANTAGE HMO [employer] Care Teams Executive Creative Director Relationship Specialty Start Date End Date PcpHannah Unassigned PCP - General Family Medicine 01/13/23
--- OUTSIDE RECORDS SUMMARY | 2025-07-13 17:40 | XMS_ITS | Encounter Summary ---
Author Organization [facility] Address [address] [place] [address] Phone Care Team Providers Care Clinical Research Technician Name Role Phone Neris Rodriguez MD Primary Care Provider [phone] Neris Rodriguez MD Unavailable [phone] Cecilia Mccauley VETERINARY MANAGER Primary Care Provider [phone] Encounter Details Date Type Department Care Team (Late st Contact Info) Description 2019 Transcribe Orders [facility] [address] [address] Neris Rodriguez MD [address] [place] [address] [email or web address] Social History Tobacco Use Types Packs/Day Years [...] on filedocumented in this encounter Care Teams Clinical Research Technician Relationship Specialty Start Date End Date Neris Rodriguez MD [address] [place] [address] [email or web address] PCP - General 06/30/17 10/26/24 Cecilia Mccauley NP [address] [place] [address] [id number] PCP - General Nurse Practitioner 10/27/24 Neris Rodriguez MD [address] [place] [address] [email or web address] Insurance Assigned Provider 05/22/19 07/22/20 documented as of this encounter Additional Source Comments The information contained in this document represents components of the legal health record. It is not the complete legal health record.[facility]
--- OUTSIDE RECORDS SUMMARY | 2025-07-13 17:40 | XMS_ITS | Encounter Summary ---
Author Organization [employer] Address [address] [place] [address] [place] [address] Care Team Providers Care Ball Point Splitter Name Role Phone Sakina Correa Primary Care Provider Un available PcpHannah Unassigned Primary Care Provider U navailable Encounter Details Date Type Department Care Team (Late st Contact Info) Description 08/26/2022 Orders Only Hannah [facility] [address] [place] [address] Gissel Reardon [place] Social History Tobacco Use [...] on filedocumented in this encounter Care Teams Ball Point Splitter Relationship Specialty Start Date End Date Sakina Correa FNP PCP - General Family Medicine 08/20/22 12/25/22 Pcp, [place] Unassigned PCP - General Family Medicine 01/13/23 documented as of this encounter
--- OUTSIDE RECORDS SUMMARY | 2025-07-13 17:40 | XMS_ITS | Clinical Summary ---
Author Organization [facility] Address [address] [facility] [address] [place] [address] Phone Care Team Providers Care Ultrasonic Welding Machine Operator Name Role Phone Cecilia Mccauely PUBLIC SAFETY OFFICER Primary Care Provider [phone] Allergies No known active allergies Medications lisinopril [...] 63 Admit Type: Outpatient Gender: Male Room: [place] [address] Referring MD: Stephanie Rodriguez MD Exam Type: [...] monitored continuously. The Olympus adult variable colonoscope [id number] #1 was introduced through the anus and [...] 11:52 AM Procedure Code(s): --- Professional --- 33064, Colonoscopy, flexible; diagnostic, including collection of specimen(s) by brushing or washing, when performed (separateprocedure) --- Technical --- 44304, Colonoscopy, flexible; diagnostic, including collection of specimen(s) by brushing or washing, when performed (separateprocedure) Diagnosis Code(s): --- Professional --- Z86.010, Personal history of colonic polyps K57.30, Diverticulosis of large intestine without perforation orabscess without bleeding --- Technical --- Z86.010, Personal history of colonic polyps K57.30, Diverticulosis of large intestine without perforation orabscess without bleeding CPT copyright 2018 [employer]. All rights reserved. The codes documented in this report are preliminary and upon nurse epidemiologist reviewmay be revised to meet current compliance requirements. [address] [place] [address] Neris Rodriguez MD GI PROCEDURE ORDERABLES Final Result from Last 3 Months or Most Recently Relevant to Health Maintenance Insurance [place] [address] MEDICARE REPLACEMENT MEDICARE REPLACEMENT MEDICARE REPLACEMENT MEDICARE REPLACEMENT MEDICARE REPLACEMENT Care Teams Ultrasonic Welding Machine Operator Relationship Specialty Start Date End Date Cecilia Mccauley NP [address] [place] [address] PCP - General Nurse Practitioner 10/27/24 Additional Source Comments The information contained in this document represents components of the legal health record. It is not the complete legal health record.[facility]
== END ==
LOC: HO.CARD 13:48
PROVIDERS: PCP Nurse Practitioner Family; Visit Provider Nurse Practitioner Family
DX: R06.02 Shortness of breath (principal); I49.9 Cardiac arrhythmia, unspecified
CPT/HCPCS: 93306; Q9957

== ENCOUNTER → 2025-07-13 14:05 | Outpatient (BNV) | payer MEDICARE, SELFPAY | PROVIDERS: PCP Nurse Practitioner Family; Visit Provider Internal Medicine | DX: I42.2 Other hypertrophic cardiomyopathy (principal); I51.89 Other ill-defined heart diseases | CPT/HCPCS: 93306 ==

== ENCOUNTER 2025-09-02 08:30 | Outpatient (AMB) | payer MEDICARE, SELFPAY ==
--- NOTE | 2025-09-02 08:33 | A.OFFPC_ITS ---
Vital Signs 09/02/25 08:38 Height 5 ft 9 in Weight 155 lb 4 oz BMI 22.9 BP 113/64 Blood Pressure Location Rt brachial Position Sitting Respiration 16 Pulse 63 Pulse Source Pulse Oximeter Temp 97.3 F Temp Source Oral Pulse Oximetry (%) 96 Oxygen Delivery Method Room Air Intake Visit Reasons: 2 mos HTN Intake Note: patient here for 2 month follow up for HTN Geothermal Operations Manager Required: No Allergies No Known Allergies Allergy (Verified 09/02/25 08:44) Medication List - Last Reconciled 09/02/25 by Cecilia Mccauley CNP aspirin 81 mg PO DAILY brimonidine 0.2% 1 drp ophthalmic (eye) Q12H brinzolamide 1% 1 drp ophthalmic-Right BID rosuvastatin 10 mg PO DAILY 90 days valsartan 20 mg (1/2 x 40 mg) PO BID Tobacco use date assessed: 09/02/25 Fall risk assessment: No Falls in past year Last assessed Fall Risk: 09/02/25 Dental Screening Dental Screen Date: 09/02/25 Did you have a dental visit in the last 12 months?: Yes Did you have a dental problem in the last 6 months where you did not have access to dental care?: No Was dental information given to patient?: Patient has dentist HPI HPI Comments History of Present Illness Details 70-year-old male presents for hypertensi on follow-up. \He admits to taking his medications as prescribed without adverse reactions. He notes he has been making healthy lifestyle changes. He offers no complaints and denies acute symptoms at this time. He had cardiac ablation in May 2025. [facility] Medical History Cardiomyopathy Prostate cancer Rectal abscess Hypertension Surgical History H/O colonoscopy S/P narciso-rectal abscess repair, follow-up exam History of cardiac cath Hx of cataract surgery H/O hernia repair Family History Father Aneurysm Social History Household Members: Spouse Both parents involved: No Caregiver staying overnight: No Housing: House Are you a primary attending ambulatory care to a significant other at home: No Do you presently have visiting nurse or other home services: No 75 years or older and lives alone: No Alcohol intake: never Patient Tobacco Use Status: Former Tobacco user Tobacco use type: Cigar Years Smoked: Pateint quit 2 weeks ago. e-Cigarette/Vaping Use: Never Used Second Hand Smoke Exposure: No service: No Current occupational status: retired Current occupational exposures/hazards: No Cognitive needs: No Hearing needs: No Vision needs: No Questionnaire Thrive Questionnaire Date Thrive assessed: 10/29/24 I am a: Patient What is your living situation today?: I have a steady place to live Within the past 12 months, did the food you bought not last and you didn't have the money to get more?: Never true Within the past 12 months, did you worry whether your food would run out before you got money to buy more?: Never true Do you have trouble paying for medicines?: No Do you have trouble getting transportation to medical appointments?: No Do you have trouble paying your heating and electricity bill?: No Do you have trouble taking care of your child, family member or friend?: No Do you have trouble with day-to-day activities such as bathing, preparing meals, shopping, managing finances, etc.?: No Are you currently unemployed and looking for a job?: No Are you interested in more education?: No Currently or been in a relationship where the following occur: No concerns reported THRIVE Score: 0 AMALIA-7 AMB Questionnaire AMALIA-7 Date AMALIA - 7 assessed: 12/08/24 Source: Developed by Drs. Cristino Morris, Nory Molina, Luca Wills and colleagues, with an educational regina from [employer]. Review of Systems Const Details: Const Denies chills, Denies fatigue, Denies fever(s), Denies headache(s) and Denies weakness ENT Denies dizziness and Denies headache(s) Card Denies chest pain, Denies lightheadedness, Denies dyspnea and Denies other (Palpitations) Resp Denies cough, Denies dyspnea, Denies wheezing and Denies other ( shortness of breath) GI Denies abdominal pain, Denies melena, Denies hematochezia, Denies change in bowel habits, Denies dyspepsia and Denies nausea Denies hematuria and Denies dysuria Musc Denies abnormal gait, Denies myalgias, Denies arthralgias, Denies numbness and Denies tingling Skin/Breast Denies rash, Denies unusual bruising and Denies wounds Neuro Denies abnormal gait, Denies dizziness, Denies headache(s), Denies memory loss, Denies numbness, Denies Sensory deficit (Neuro), Denies tingling and Denies weakness Psych Denies anxiety, Denies depression, Denies memory loss Endo Denies cold intolerance, Denies fatigue, Denies heat intolerance, Denies polydipsia and Denies polyuria Aller/Immun Denies wheezing Physical exam (Primary Care) Vital Signs: Last Vital Signs Temp 97.3 F 09/02/25 08:38 Pulse 63 09/02/25 08:38 Resp 16 09/02/25 08:38 BP 113/64 09/02/25 08:38 Pulse Ox 96 09/02/25 08:38 Oxygen Delivery Method Room Air 09/02/25 08:38 BMI result Body Mass Index 22.9 Tobacco/Smoking Status: Tobacco use Status Tobacco use date assessed 09/02/25 09/02/25 08:40 Patient Tobacco Use Status Former Tobacco user 09/02/25 08:35 Tobacco use type Cigar 09/02/25 08:35 e-Cigarette/Vaping Use Never Used 09/02/25 08:35 Thrive Assessment: Date of Thrive Assessment Date Thrive assessed 10/29/24 09/02/25 08:35 Currently or been in a relationship where the following occur: No concerns reported Const Other: General: no acute distress and well developed Nutritional Appearance: well nourished Orientation/consciousness: patient oriented x3 HENMT Head: Yes normocephalic and Yes atraumatic Eyes General: appearance normal, both eyes and all related structures Pupils: Equal, round and reactive pupils present EOM: EOMs intact bilaterally Resp Effort & Inspection: normal respiratory effort Auscultation: clear to auscultation bilaterally Cardio Rate: regular rate Rhythm: regular rhythm Heart sounds: S1 normal heart sound present, S2 normal heart sound present, no gallops, no murmurs and no rubs General: Yes no CVA tenderness Back/Spine/Pelvis Back: no CVA tenderness Cervical Spine: cervical ROM normal and No Cervical spine tenderness Thoracic/Lumbar Spine: thoraco-lumbar ROM normal, No pain with thoraco-lumbar ROM, No thoracic spinal tenderness and No lumbar spinal tenderness Extrem General: Yes normal to inspection, No edema and No calf tenderness Skin General: warm and dry. Normal skin color. Normal skin turgor Neuro General: patient oriented x3, gait normal and no focal neuro deficit Psych Appearance: grossly normal Affect: normal affect Attitude: cooperative Thought process: Normal thought process present Coding Level of Care Code Est Pt Level 3 (13130) Diagnoses Primary hypertension I10 Hypertension type: primary hypertension Assessment & Plan Assessment & Plan (1) Hypertension: Code(s): I10 - Essential (primary) hypertension Category: Medical Qualifiers: Hypertension type: primary hypertension Qualified Code(s): I10 - Essential (primary) hypertension Plan: Blood pressure is 113/64, within goal of less than 130/80. Continue current treatment regimen. Low-sodium diet encouraged. Follow-up in 2-3 months for transfer of care with a new provider within the practice. Return sooner with symptoms or concerns. Verbalized understanding and agreed with the plan.
[2025-09-02 08:38] VITALS: BP 113/64; PULSE 63; RESP 16; TEMP 36.3; O2SAT 96; BMI 22.9
--- OUTSIDE RECORDS SUMMARY | 2025-09-02 08:38 | XMS_ITS | Clinical Summary ---
Author Organization [employer] Address [address] [facility] 7t [place] [address] Care Team Providers Care Jointer Submarine Cable Name Role Phone Promise Good NP Primary Care Provider [phone] Allergies Active Allergy Reactions Criticality Noted Date [...] Moderna Covid-19 Vaccine 12+ 02/01/2021,01/05/20 21 Novel [id number], all formulations 2009 TD (adult), 2 Lf [...] Dental Prophylaxis 05/20/2024 11/17/2023, 04/28/2023 COVID-19 Vaccine (3 - season) 2025 02/01/2021, 01/04/2021 Influenza Vaccine (#1) [...] SYSTEM 03/28/2022 6:14 AM EDT Sakina Correa THERAPY AIDE LAB BLOOD ORDERABLES Laly l Result [facility] [address] * -Colonoscopy (02/07/2016 9:27 AM EDT) Anatomical Region Laterality Modality Endoscopy 02/07/2016 9:27 AM EDT Narrative 02/07/2016 9:27 AM EDT Refer to Liss for result details [facility] Procedure: -Colonoscopy Procedure Note Provider, MD Rickey - 12/07/2022 Refer to Liss for result details [facility] Procedure: -Colonoscopy Neris Rodriguez MD ENDOSCOPY PROCEDURE ORDERABLES F inal Result from Last 3 Months or Most Recently Relevant to Health Maintenance Insurance [facility] MEDICARE ADVANTAGE HMO GENERIC DENTAL [place] [id number] [facility] MEDICARE ADVANTAGE HMO [place] Care Teams Jointer Submarine Cable Relationship Specialty Start Date End Date Promise Good NP [address] [place] [address] PCP - General 08/19/25
--- OUTSIDE RECORDS SUMMARY | 2025-09-02 08:38 | XMS_ITS | Encounter Summary ---
Author Organization [employer] Address [address] [place] [address] 7 [place] [address] Care Team Providers Care Butcher Helper Name Role Phone Sakina Correa Primary Care Provider Un available Hannah Sow Primary Care Provider U Promise Nieves NP Primary Care Provider [phone] Encounter Details Date Type Department Care Team (Late st Contact Info) Description 08/26/2022 Orders Only Hannah [facility] [address] [place] [address] Gissel Reardon [place] Social History Tobacco Use [...] on filedocumented in this encounter Care Teams Butcher Helper Relationship Specialty Start Date End Date Sakina Correa FNP PCP - General Family Medicine 08/20/22 12/25/22 Hannah Sow Unassrito PCP - General Family Medicine 01/13/23 08/18/25 Promise Good NP [address] [place] [address] PCP - General 08/19/25 documented as of this encounter
--- OUTSIDE RECORDS SUMMARY | 2025-09-02 08:38 | XMS_ITS | Clinical Summary ---
Author Organization [address] [place] [address] [place] [phone] Phone Care Team Providers Care Online Content Editor Name Role Phone Cecilia Mccauley JERMAINE Primary Care Provider Social History Tobacco Use Types Packs/Day Years [...] topic Insurance [employer] MEDICARE Care Teams Online Content Editor Relationship Specialty Start Date End Date Cecilia Mccauley FNP [address] [place] [address] PCP - General Family Medicine 11/04/24
== END 2025-09-02 08:50 | disposition home or self-care (01) ==
LOC: HO.HMCFM 08:31
PROVIDERS: PCP Nurse Practitioner Family; Visit Provider Nurse Practitioner Family
DX: I10 Essential (primary) hypertension (principal)

== ENCOUNTER → 2025-09-02 08:30 | Outpatient (BNVA) | payer MEDICARE, SELFPAY | PROVIDERS: PCP Nurse Practitioner Family; Visit Provider Nurse Practitioner Family | DX: I10 Essential (primary) hypertension (principal); Z79.899 Other long term (current) drug therapy | CPT/HCPCS: 99212 ==

== ENCOUNTER 2025-09-07 08:44 | Outpatient (AMB) | payer MEDICARE, SELFPAY ==
--- OUTSIDE RECORDS SUMMARY | 2025-09-07 08:48 | XMS_ITS | Encounter Summary ---
Author Organization [facility] Address [address] [place] [address] [place] [address] Phone Care Team Providers Care Submarine Cable Equipment Technician Name Role Phone Neris Rodriguez MD Primary Care Provider [phone] Cecilia Mccauely NP Primary Care Provider [phone] Encounter Details Date Type Department Care Team (Late st Contact Info) Description 10/15/2024 Procedure Pass [facility], Ct Scan - [facility] [address] [place] [address] Social History Tobacco Use Types Packs/Day Years [...] on filedocumented in this encounter Care Teams Submarine Cable Equipment Technician Relationship Specialty Start Date End Date Neris Rodriguez MD [address] [place] [address] [email or web address] PCP - General 06/30/17 10/26/24 Cecilia Mccauley NP [address] [place] [address] PCP - General Nurse Practitioner 10/27/24 documented as of this encounter Additional Source Comments The information contained in this document represents components of the legal health record. It is not the complete legal health record.[facility]
--- OUTSIDE RECORDS SUMMARY | 2025-09-07 08:48 | XMS_ITS | Encounter Summary ---
Author Organization [facility] Address [address] [place] [address] Phone Care Team Providers Care Delivery Agent Name Role Phone Neris Rodriguez MD Primary Care Provider [phone] Neris Rodriguez MD Unavailable [phone] Cecilia Mccauley DESIGN CONSULTANT Primary Care Provider [phone] Encounter Details Date Type Department Care Team (Late st Contact Info) Description 06/10/2019 Procedure Pass [facility] Endoscopy Admitting Dept Virtual Department [address] [place] [address] Social History Tobacco Use Types Packs/Day Years [...] on filedocumented in this encounter Care Teams Delivery Agent Relationship Specialty Start Date End Date Neris Rodriguez MD [address] [place] [address] PCP - General 06/30/17 10/26/24 Cecilia Mccauley NP [address] [place] [address] PCP - General Nurse Practitioner 10/27/24 Neris Rodriguez MD [address] [place] [address] [email or web address] Insurance Assigned Provider 05/22/19 07/22/20 documented as of this encounter Additional Source Comments The information contained in this document represents components of the legal health record. It is not the complete legal health record.[facility]
--- OUTSIDE RECORDS SUMMARY | 2025-09-07 08:48 | XMS_ITS | Clinical Summary ---
Author Organization [employer] Address [address] [facility] 7t [place] [address] Care Team Providers Care Dental Insurance Biller Name Role Phone Promise Good NP Primary Care Provider [phone] Allergies Active Allergy Reactions Criticality Noted Date [...] Moderna Covid-19 Vaccine 12+ 02/01/2021,01/05/20 21 Novel [id number], all formulations 2009 TD (adult), 2 Lf [...] SYSTEM 03/28/2022 6:14 AM EDT Sakina Correa ANALYST LAB BLOOD ORDERABLES Laly l Result [facility] [address] * -Colonoscopy (02/07/2016 9:27 AM EDT) [...] Most Recently Relevant to Health Maintenance Insurance [facility] MEDICARE ADVANTAGE HMO GENERIC DENTAL [place] [id number] [facility] MEDICARE ADVANTAGE HMO [place] Care Teams Dental Insurance Biller Relationship Specialty Start Date End Date Promise Good NP [address] [place] [address] PCP - General 08/19/25
--- OUTSIDE RECORDS SUMMARY | 2025-09-07 08:48 | XMS_ITS | Clinical Summary ---
Author Organization [facility] Address [address] [facility] [address] [place] [address] Phone Care Team Providers Care Erp Developer Name Role Phone Cecilia Mccauley JAVA TECHNICAL MANAGER Primary Care Provider [phone] Allergies No known active allergies Medications lisinopril [...] 63 Admit Type: Outpatient Gender: Male Room: [place] [address] Referring MD: Stephanie Rodriguez MD Exam Type: [...] monitored continuously. The Olympus adult variable colonoscope [id number] #1 was introduced through the anus and [...] 11:52 AM Procedure Code(s): --- Professional --- 61346, Colonoscopy, flexible; diagnostic, including collection of specimen(s) by brushing or washing, when performed (separateprocedure) --- Technical --- 26567, Colonoscopy, flexible; diagnostic, including collection of specimen(s) by brushing or washing, when performed (separateprocedure) Diagnosis Code(s): --- Professional --- Z86.010, Personal history of colonic polyps K57.30, Diverticulosis of large intestine without perforation orabscess without bleeding --- Technical --- Z86.010, Personal history of colonic polyps K57.30, Diverticulosis of large intestine without perforation orabscess without bleeding CPT copyright 2018 [employer]. All rights reserved. The codes documented in this report are preliminary and upon stock supervisor reviewmay be revised to meet current compliance requirements. [address] [place] [address] Neris Rodriguez MD GI PROCEDURE ORDERABLES Final Result from Last 3 Months or Most Recently Relevant to Health Maintenance Insurance MEDICARE REPLACEMENT MEDICARE REPLACEMENT MEDICARE REPLACEMENT MEDICARE REPLACEMENT MEDICARE REPLACEMENT MEDICARE REPLACEMENT Care Teams Erp Developer Relationship Specialty Start Date End Date Cecilia Mccauley NP [address] [place] [address] PCP - General Nurse Practitioner 10/27/24 Additional Source Comments The information contained in this document represents components of the legal health record. It is not the complete legal health record.[facility]
--- OUTSIDE RECORDS SUMMARY | 2025-09-07 08:48 | XMS_ITS | Encounter Summary ---
Author Organization [employer] Address [address] [place] [address] 7 [place] [address] Care Team Providers Care Wharfinger Chief Name Role Phone Sakina Correa Primary Care Provider Un available Hannha Sow Primary Care Provider U Promise Nieves NP Primary Care Provider [phone] Encounter Details Date Type Department Care Team (Late st Contact Info) Description 08/26/2022 Orders Only Hannah [facility] [address] [place] [address] Gissel Reardon [place] Social History Tobacco Use [...] on filedocumented in this encounter Care Teams Wharfinger Chief Relationship Specialty Start Date End Date Sakina Correa FNP PCP - General Family Medicine 08/20/22 12/25/22 Hannah Sow Unassrito PCP - General Family Medicine 01/13/23 08/18/25 Promise Good NP [address] [place] [address] PCP - General 08/19/25 documented as of this encounter
--- OUTSIDE RECORDS SUMMARY | 2025-09-07 08:48 | XMS_ITS | Clinical Summary ---
Author Organization [address] [place] [address] [place] [phone] Phone Care Team Providers Care Shell Core And Molding Supervisor Name Role Phone Cecilia Mccauley JERMAINE Primary [...] topic Insurance [employer] MEDICARE Care Teams Shell Core And Molding Supervisor Relationship Specialty Start Date End Date Cecilia Mccauley FNP [address] [place] [address] PCP - General Family Medicine 11/04/24
--- OUTSIDE RECORDS SUMMARY | 2025-09-07 08:48 | XMS_ITS | Encounter Summary ---
Author Organization [facility] Address [address] [place] [address] Phone Care Team Providers Care Chief Medical Director Name Role Phone Neris Rodriguez MD Primary Care Provider [phone] Neris Rodriguez MD Unavailable [phone] Cecilia Mccauley PUBLIC TRANSIT BUS DRIVER Primary Care Provider [phone] Encounter Details Date Type Department Care Team (Late st Contact Info) Description 2019 Transcribe Orders [facility] [address] [place] [address] Neris Rodriguez MD [address] [place] [address] [email or web address] Social History Tobacco Use Types Packs/Day Years [...] on filedocumented in this encounter Care Teams Chief Medical Director Relationship Specialty Start Date End Date Neris Rodriguez MD [address] [place] [address] [email or web address] PCP - General 06/30/17 10/26/24 Cecilia Mccauley NP [address] [place] [address] PCP - General Nurse Practitioner 10/27/24 Neris Rodriguez MD [address] [place] [address] [email or web address] Insurance Assigned Provider 05/22/19 07/22/20 documented as of this encounter Additional Source Comments The information contained in this document represents components of the legal health record. It is not the complete legal health record.[facility]
--- OUTSIDE RECORDS SUMMARY | 2025-09-07 08:48 | XMS_ITS | Encounter Summary ---
Author Organization [facility] Address [address] [place] [address] [place] [id number] Phone Care Team Providers Care Continuous Mining Machine Lode Miner Name Role Phone Neris Rodriguez MD Primary Care Provider [phone] Neris Rodriguez MD Unavailable [phone] Cecilia Mccauley NP Primary Care Provider [phone] Encounter Details Date Type Department Care Team (Latest Contact Info) Description 04/04/2020 Transcribe Orders Virtual Department [address] [place] [address] Alla Coon, VETERANS ADVISER [address] [place], [place] [id number] Acute right-sided thoracic back pain (Primary Dx) [...] disc and endplate changes. Scoliosis. POS - [id number] Narrative 04/10/2020 12:08 PM EDT HISTORY: Acute [...] disc and endplate changes. Scoliosis. POS - [id number] us Alla Coon VETERANS ADVISER IMG XR SPINE Final Re sult * [...] disc and endplate changes. Scoliosis. POS - [id number] Narrative 04/10/2020 12:08 PM EDT HISTORY: Acute [...] disc and endplate changes. Scoliosis. POS - [id number] us Alla Coon VETERANS ADVISER IMG XR SPINE Final Re sult documented in this encounter Visit Diagnoses Diagnosis Acute right-sided thoracic back pain- Primary Acute right-sided thoracic back pain Acute right-sided thoracic back pain documented in this encounter Care Teams Continuous Mining Machine Lode Miner Relationship Specialty Start Date End Date Neris Rodriguez MD [address] [place] [address] PCP - General 06/30/17 10/26/24 Cecilia Mccauley NP [address] [place] [address] PCP - General Nurse Practitioner 10/27/24 Neris Rodriguez MD [address] [place] [address] Insurance Assigned Provider 05/22/19 07/22/20 documented as of this encounter Additional Source Comments The information contained in this document represents components of the legal health record. It is not the complete legal health record.[facility]
[2025-09-07 09:00] VITALS: BP 112/60; PULSE 61; BMI 22.1
--- NOTE | 2025-09-07 09:00 | A.OFFVIS_ITS ---
Vital Signs 09/07/25 09:00 Height 5 ft 9 in Weight 149 lb 14.629 oz BMI 22.1 BP 112/60 Blood Pressure Location Lt brachial Position Sitting Pulse 61 Pulse Source Pulse Oximeter Intake Visit Reasons: f/up echo Allergies No Known Allergies Allergy (Verified 09/02/25 08:44) Medication List - Last Reconciled 09/07/25 by Christiano Crisostomo MD aspirin 81 mg PO DAILY brimonidine 0.2% 1 drp ophthalmic (eye) Q12H brinzolamide 1% 1 drp ophthalmic-Right BID rosuvastatin 10 mg PO DAILY valsartan 20 mg (1/2 x 40 mg) PO BID HPI Comments Details: Chong returns for follow-up regarding cardiomyopathy as well as frequent PVCs. No known coronary artery disease or myocardial infarction. Fairly active without any clear-cut symptoms. He has undergone comprehensive workup including echocardiogram, stress test, Holter, cardiac MRI as well as cardiac PET. He also recently underwent PVC ablation. Otherwise, no new concerns and he is feeling good. [facility] Medical History Cardiomyopathy Prostate cancer Rectal abscess Hypertension Surgical History H/O colonoscopy S/P narciso-rectal abscess repair, follow-up exam History of cardiac cath Hx of cataract surgery H/O hernia repair Family History Father Aneurysm Social History Household Members: Spouse Both parents involved: No Caregiver staying overnight: No Housing: House Are you a primary critical care transport nurse to a significant other at home: No Do you presently have visiting nurse or other home services: No 75 years or older and lives alone: No Alcohol intake: never Patient Tobacco Use Status: Former Tobacco user Tobacco use type: Cigar Years Smoked: Pateint quit 2 weeks ago. e-Cigarette/Vaping Use: Never Used Second Hand Smoke Exposure: No service: No Current occupational status: retired Current occupational exposures/hazards: No Cognitive needs: No Hearing needs: No Vision needs: No Review of Systems Const Denies weakness ENT Denies dizziness Card Denies chest pain, Denies chest pain with activity, Denies syncope, Denies rapid heart rate, Denies pedal edema, Denies edema, Denies leg edema, Denies lightheadedness, Denies palpitations, Denies dyspnea, Denies dyspnea on exertion and Denies orthopnea Resp Denies cough, Denies dyspnea and Denies dyspnea on exertion GI Denies hematochezia and Denies change in stool character Musc Denies abnormal gait, Denies muscle cramps, Denies muscle weakness, Denies numbness, Denies radiating pain into limb and Denies tingling Neuro Denies abnormal gait, Denies dizziness, Denies syncope, Denies numbness, Denies tingling and Denies weakness Endo Denies palpitations Physical Exam Vital Signs: Last Vital Signs Pulse 61 09/07/25 09:00 BP 112/60 09/07/25 09:00 BMI result Body Mass Index 22.1 Const General: comfortable and no acute distress Orientation/consciousness: patient oriented x3 HEENT Other: Unremarkable Head: Yes normal to inspection Neck Neck: Yes normal visual inspection Chest Chest palpation & inspection: normal inspection of the chest Resp Auscultation: clear to auscultation bilaterally Cardio Palpation: normal PMI Heart sounds: S1 normal heart sound present, S2 normal heart sound present, no gallops, no murmurs and no rubs GI Palpation (GI): Soft to palpation Back/Spine/Pelvis Other: unremarkable Skin General skin exam: no rashes or lesions noted Neuro General: patient oriented x3 Extrem General: Yes normal to inspection Psych Mental Status: mental status grossly normal Assessment & Plan Assessment & Plan (1) Nonischemic cardiomyopathy: Code(s): I42.8 - Other cardiomyopathies Category: Medical (2) PVC (premature ventricular contraction): Code(s): I49.3 - Ventricular premature depolarization Category: Medical (3) Atherosclerotic cardiovascular disease: Code(s): I25.10 - Atherosclerotic heart disease of [place] coronary artery without angina pectoris Category: Medical Plan Cardiac studies reviewed. In the most recent echocardiogram, LVEF is 35-40%. Basal inferior/inferoseptal akinesis. Basal inferolateral segment is dyskinetic. No significant valvular findings. In the exercise stress test, no increase in PVCs during exercise. Perfusion imaging suggestive of possible infarct in the basal inferolateral wall. In the Holter monitor done post PVC ablation, underlying rhythm is sinus with an average rate of 67/Min. Frequent PACs with a burden of 2.9% and short runs. Frequent PVCs with a burden of 8.7% with 3-4 beat runs. Previously PVC burden was 10%. Cardiac catheterization with mid RCA 40% stenosis, but otherwise unremarkable. Cardiac MRI with LVEF of 44%. Basal inferior/inferolateral/anterolateral hypokinesis. Increased LV trabeculation. Areas of severe myocardial thinning. Mild asymmetric hypertrophy. Intracavitary gradient. Moderate mitral regurgitation. 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 Cardiac PET without any evidence of sarcoidosis. Overall, cardiomyopathy; frequent PVCs status post ablation with residual PVC burden; mild coronary disease; no overt heart failure symptoms or signs. He was on beta-blockers but not in his list anymore and can resume that. Otherwise, remains on valsartan and some statins with low-dose aspirin. No changes with the any of those. He has an upcoming appointment with the EP advised to keep that. Discussion Notes: I have discussed the patient's condition with him following his second ablation for PVCs. I advised him to restart Metoprolol, and a prescription will be pro vided as he does not have any at home. He was instructed to continue his other medications. I informed the patient that I will contact Dr. Gurrola and that he should proceed with his scheduled appointment on September 20. We will arrange a follow-up visit in 3 to 4 months. Patient was informed and verbally consented to the use of an ambient scribe for clinic note documentation during this visit. Medications: New metoprolol succinate ER (Toprol XL) 25 mg PO DAILY 90 tabs 1RF Coding Level of Care Code Est Pt Level 4 (39896) Add On Problem Visit Only Diagnoses Nonischemic cardiomyopathy I42.8 PVC (premature ventricular contraction) I49.3 Atherosclerotic cardiovascular disease I25.10
== END 2025-09-07 09:24 | disposition home or self-care (01) ==
LOC: HO.HCS 08:45
PROVIDERS: PCP Nurse Practitioner Family; Visit Provider Internal Medicine
DX: I42.8 Other cardiomyopathies (principal); I49.3 Ventricular premature depolarization; I25.10 Atherosclerotic heart disease of native coronary artery without angina pectoris
CPT/HCPCS: 99214; G2211

== ENCOUNTER → 2025-09-07 08:44 | Outpatient (BNVA) | payer MEDICARE, SELFPAY | PROVIDERS: PCP Nurse Practitioner Family; Visit Provider Internal Medicine | DX: I49.3 Ventricular premature depolarization (principal); I42.8 Other cardiomyopathies; I25.10 Atherosclerotic heart disease of native coronary artery without angina pectoris; I25.83 Coronary atherosclerosis due to lipid rich plaque; Z87.891 Personal history of nicotine dependence; Z79.82 Long term (current) use of aspirin; I11.9 Hypertensive heart disease without heart failure | CPT/HCPCS: 99212 ==